=== PATIENT | male | born 1935 | race American Indian/Alaskan Native ===

== ENCOUNTER 2018-10-29 18:03 | Inpatient (IN) | payer MEDICARE, OTHER ==
[2018-10-29] MEDS ORDERED: Vancomycin 1gm in NS 250ml 1 GM/250 ML BAG IVPB STA (19:15)
[2018-10-29] MEDS ORDERED: Piperacillin/Tazobact 3.375 gm 100 ML IVPB STA (19:15)
[2018-10-29] MEDS ORDERED: Sodium Chloride 0.9% 1,000 ML IV STA (19:16)
[2018-10-29 19:35] LABS: BASO # 0.03 K/mm3 (0.0-2.0); BASO % 0.1 % (0.0-3.0); GRAN # 20.67 (1.4-6.5); GRAN % 88.7 % (50.0-68.0); HEMOGLOBIN 9.5 g/dL (14.0-18.0); LYMPH # 1.5 (1.2-3.4); LYMPH % 6.4 % (22.0-35.0); MEAN CELL VOLUME 82.6 fl (80.0-105.0); MEAN CORPUSCULAR HEMOGLOBIN 24.6 pg (25.0-35.0); MEAN CORPUSCULAR HGB CONC 29.8 g/dl (31.0-37.0); MEAN PLATELET VOLUME 9.7 fl (7.0-11.0); MONO # 1.1 (0.1-0.6); MONO % 4.8 % (1.0-6.0); RBC 3.86 10^6/uL (3.5-6.1); RED CELL DISTRIBUTION WIDTH 17.5 % (11.5-14.5); WHITE BLOOD COUNT 23.3 10^3/uL (4.5-11.0)
--- NOTE | 2018-10-29 19:39 | ED PDOC ---
Arrival/HPI - General Chief Complaint: Fever Time Seen by Provider: 10/29/18 19:08 Historian: Family (patient accompanied by daughter ), [facility] - History of Present Illness Narrative History of Present Illness (Text): 10/29/18 19:08 83 year old male, whose past medical history includes dementia, hypertension, and diabetes, who was sent to the emergency department from [facility] accompanied by daughter for reported fever. Patient is bed bound. Patient is DNR/DNI. No other complaints noted. HPI is limited due to patient's condition. PMD: Cameron Zamora Time/Duration: Prior to Arrival Symptom Onset: Sudden Symptom Course: Unchanged Activities at Onset: Light Past Medical History - Provider Review Nursing Documentation Reviewed: Yes - Cardiac Hx Hypertension: Yes - Pulmonary Hx Respiratory Disorders: No - Neurological Hx Dementia: Yes Hx Parkinson's Disease: Yes - HEENT Hx HEENT Disorder: Yes Hx Difficulty Chewing: Yes - Renal Hx Renal Disorder: No - Endocrine/Metabolic Hx Diabetes Mellitus Type 2: Yes - Hematological/Oncological Hx Anemia: Yes - Integumentary Hx Dermatological Disorder: Yes Other/Comment: skin breakdown sacrum - Musculoskeletal/Rheumatological Hx Musculoskeletal Disorders: Yes Hx Falls: No Hx Unsteady Gait: Yes Other/Comment: bed bound - Gastrointestinal Hx Gastrointestinal Disorders: No Other/Comment: PEG tube - Genitourinary/Gynecological Hx Genitourinary Disorders: Yes Hx Incontinence: Yes - Psychiatric Hx Psychophysiologic Disorder: No Hx Substance Use: No - Anesthesia Hx Anesthesia: Yes Hx Anesthesia Reactions: No Hx Malignant Hyperthermia: No Family/Social History - Physician Review Nursing Documentation Reviewed: Yes Family/Social History: No Known Family HX Smoking Status: Never Smoked Hx Alcohol Use: No Hx Substance Use: No Allergies/Home Meds Allergies/Adverse Reactions: Allergies No Known Allergies Allergy (Verified 07/28/18 19:08) Home Medications: Home Meds Medication Instructions Recorded Confirmed Acetylcysteine 20% 1 vial IH Q6H 10/29/18 10/29/18 RX: Ascorbic Acid [Vitamin C] 5 ml PEG DAILY 10/29/18 10/29/18 RX: Insulin Human Regular-LOW 0 units SC Q6H 10/29/18 10/29/18 [HumuLIN R LOW] RX: Pantoprazole [Protonix Inj] 40 mg PEG DAILY 10/29/18 10/29/18 traMADol [Ultram] 1 tab PEG Q12H PRN 10/29/18 10/29/18 Review of Systems - Physician Review All systems were reviewed & negative as marked: Yes (Limited due to patient's condition) - Review of Systems Constitutional: Fevers (pt sent to Emergency department from [facility] for reported fever). absent: Normal Physical Exam Vital Signs Reviewed: Yes Vital Signs Temp Pulse Resp BP Pulse Ox 10/29/18 18:24 100 F H 116 H 18 137/74 100 Temperature: Febrile Blood Pressure: Normal Pulse: Tachycardic Respiratory Rate: Normal Appearance: Positive for: Non-Toxic, Ill-Appearing (pt is chronically ill appearing), Cachectic Pain Distress: None Mental Status: Positive for: other (patient has history of dementia ) - Systems Exam Head: Present: Atraumatic, Normocephalic Pupils: Present: PERRL Extroacular Muscles: Present: EOMI Conjunctiva: Present: Normal Mouth: Present: Moist Mucous Membranes Neck: Present: Normal Range of Motion Respiratory/Chest: Present: Decreased Breath Sounds (mildly coarse breath sounds bilaterally ) Cardiovascular: Present: Regular Rate and Rhythm, Normal S1, S2. No: Murmurs Abdomen: Present: Feeding Tubes (PEG tube in place ) Back: Present: Normal Inspection Upper Extremity: Present: Normal Inspection. No: Cyanosis, Edema Lower Extremity: Present: Other (left sided sacral decubitis ulcer with purulent discharge ). No: Normal Inspection Skin: Present: Warm, Dry, Normal Color. No: Rashes Psychiatric: Present: Other (pt has history of dementia ) Medical Decision Making ED Course and Treatment: 10/29/18 19:08 Impression:83 year old male who was sent to the emergency department from [facility] accompanied by daughter for reported fever. Differential Diagnosis included but are not limited to: ro uti pna sepsis Plan: -- Labs -- EKG -- CMP -- Lipase -- Magnesium -- CBC (with differential) -- Partial Thromboplastin -- Prothrombin Time -- X-ray of chest -- IV fluids -- Vancomycin 1gm in 250ml IVPB -- Zosyn 3.375 in NS 100ml -- Blood culture -- Urine culture -- Urinalysis -- Reassess and disposition Prior Visits: Notes and results from previous visits were reviewed. Patient was last seen in the emergency department on 08/19/18 for fever. Progress Notes: 10/29/18 21:53 cxr with infiltare. daughter bedside requests dni dnr. antibiotics given. accepted dr cm. 10/29/18 23:49 10/29/18 23:50 lactate 2.2 code sepsis activaated does not need 30 cc/kg bolus and hemodynamics stable. - RAD Interpretation Radiology Orders: 10/29/18 19:16 CXR [CHEST PORTABLE] [RAD] Stat - Medication Orders Current Medication Orders: Vancomycin HCl (Vancomycin 1gm) 1 gm in 250 mls @ 167 mls/hr IVPB STAT STA; Protocol Stop: 10/29/18 20:44 Piperacillin Sod/Tazobactam Sod (Zosyn 3.375 In Ns 100ml) 100 mls @ 200 mls/hr IVPB STAT STA; Protocol Stop: 10/29/18 19:44 Sodium Chloride (Sodium Chloride 0.9%) 1,000 mls @ 999 mls/hr IV .Q1H1M STA Stop: 10/29/18 20:16 - Scribe Statement The provider has reviewed the documentation as recorded by the Scribsisi Kulkarni All medical record entries made by the Scribe were at my direction and personally dictated by me. I have reviewed the chart and agree that the record accurately reflects my personal performance of the history, physical exam, medical decision making, and the department course for this patient. I have also personally directed, reviewed, and agree with the discharge instructions and disposition. Disposition/Present on Arrival - Present on Arrival Any Indicators Present on Arrival: No History of DVT/PE: No History of Uncontrolled Diabetes: No Urinary Catheter: Yes History of Decub. Ulcer: No History Surgical Site Infection Following: None - Disposition Have Diagnosis and Disposition been Completed?: Yes Diagnosis: Pneumonia, Sepsis, Hypernatremia, Sacral decubitus ulcer Disposition: HOSPITALIZED Disposition Time: 21:00 Patient Problems: Current Active Problems Problem Status Onset Hypernatremia Acute Pneumonia Acute Sacral decubitus ulcer Acute Sepsis Acute Condition: FAIR
[2018-10-29 19:43] LABS: VENOUS BLOOD GAS BASE EXCESS 7.2 mmol/L (0.0-2.0); VENOUS BLOOD GAS PO2 116 mm/Hg (30-55); VENOUS BLOOD PH 7.42 (7.32-7.43)
[2018-10-29 19:45] LABS: INR 1.65; PARTIAL THROMBOPLASTIN TIME 35.5 Seconds (25.1-36.5)
[2018-10-29 19:58] LABS: ALB/GLOB RATIO 0.6 (1.1-1.8); ALBUMIN 2.9 g/dL (3.0-4.8); ALT/SGPT 21 U/L (7-56); AST/SGOT 54 U/L (17-59); B-TYPE NATRIURETIC PEPTIDE 682 pg/mL (0-450); BLOOD UREA NITROGEN 49 mg/dL (7-21); CALCIUM 9.8 mg/dL (8.4-10.5); GFR NON-AFRICAN AMERICAN > 60; LIPASE 67 U/L (23-300); TROPONIN I 0.04 ng/mL
[2018-10-29 20:27] LABS: URINE BILIRUBIN NEGATIVE (NEGATIVE); URINE BLOOD TRACE-LYSED (NEGATIVE); URINE GLUCOSE (UA) NEGATIVE (NEGATIVE); URINE LEUKOCYTE ESTERASE NEGATIVE Leu/uL (NEGATIVE); URINE PROTEIN NEGATIVE mg/dL (<30 mg/dL); URINE UROBILINOGEN 0.2 E.U./dL (<1 E.U./dL)
[2018-10-29 20:30] LABS: URINE APPEARANCE CLEAR (CLEAR); URINE COLOR YELLOW (YELLOW)
[2018-10-29 20:42] LABS: URINE BACTERIA NEG (NEG); URINE RBC 0 - 2 /hpf (0-2); URINE WBC NEGATIVE /hpf (0-6)
[2018-10-29] MEDS: Dextrose 5%/0.45% NS 1,000 ML IV SCH (22:14)
[2018-10-29] MEDS: MEROPENEM 500 MG in NS 500 MG/50 ML BAG IVPB SCH (22:15)
[2018-10-29] MEDS: Acetylcysteine 20% Inhal Soln (4ml) IH SCH (22:30)
[2018-10-29] MEDS: Levalbuterol 0.63 MG/3 ML Inhal Soln UD IH SCH (22:30)
[2018-10-29] MEDS: Carbidopa/Levodopa 25/250 PEG SCH (22:30)
[2018-10-29] MEDS: Insulin Reg-LOW-Coverage SC SCH (22:38)
[2018-10-29 23:23] LABS: VENOUS BLOOD GAS BASE EXCESS 5.8 mmol/L (0.0-2.0); VENOUS BLOOD GAS PO2 191 mm/Hg (30-55); VENOUS BLOOD PH 7.45 (7.32-7.43)
--- NOTE | 2018-10-29 23:39 | CP.PCM.HP ---
History of Present Illness - History of Present Illness History of Present Illness: Lillian Lrlilian, PGY1 Hospital H&P This is an 83 year old male with PMH of dementia, DM2, HTN, and parkinson's presenting to the ED from [facility] for fever of 102. Patient is nonverbal and currently lethargic during examination. Daughter is present who states she visited patient on previous evening and was at baseline at that time responding to commands. Patient was admitted to the hospital 3 months ago for severe sepsis 2/2 sacral decubitus ulcer. He is DNR/DNI. Daughter is emergency contact and her phone number is [phone]. 12 point ROS limited due to patient status. In ED, temp was 100F, HR 116 and BP of 137/74. WBC noted to be 23.3, lactate of 2.2, sodium of 155, and of BUN 49. CXR showed possible LLB infiltrate (f/u official read). Patient given zosyn, vancomycin, 1L NS and given tylenol. (Per chart review) PMD: Dr Quinteros PMH: Dementia, Parkinson's, DM2, HTN SH: resides at [facility], moved from [place] PSx: G-tube placed on prior hospital admission at [facility] (08/07/18) FH: Brother had DM2 Allergies: NKDA Present on Admission - Present on Admission Any Indicators Present on Admission: Yes Decubitus Ulcer Present: Yes Decubitus Ulcer Location: left sided sacral decubitis Decubitus Ulcer Stage: II Past Patient History - Past Medical History & Family History Past Medical History?: Yes - Past Social History Smoking Status: Unknown If Ever Smoked - CARDIAC Hx Hypertension: Yes - PULMONARY Hx Respiratory Disorders: No - NEUROLOGICAL Hx Dementia: Yes Hx Parkinson's Disease: Yes - HEENT Hx HEENT Problems: Yes Hx Difficulty Chewing: Yes - RENAL Hx Chronic Kidney Disease: No - ENDOCRINE/METABOLIC Hx Diabetes Mellitus Type 2: Yes - HEMATOLOGICAL/ONCOLOGICAL Hx Anemia: Yes - INTEGUMENTARY Hx Dermatological Problems: Yes Other/Comment: skin breakdown sacrum - MUSCULOSKELETAL/RHEUMATOLOGICAL Hx Musculoskeletal Disorders: Yes Hx Falls: No Hx Unsteady Gait: Yes Other/Comment: bed bound - GASTROINTESTINAL Hx Gastrointestinal Disorders: No Other/Comment: PEG tube - GENITOURINARY/GYNECOLOGICAL Hx Genitourinary Disorders: Yes Hx Incontinence: Yes - PSYCHIATRIC Hx Psychophysiologic Disorder: No Hx Substance Use: No - SURGICAL HISTORY Hx Surgeries: Yes - ANESTHESIA Hx Anesthesia: Yes Hx Anesthesia Reactions: No Hx Malignant Hyperthermia: No Meds Allergies/Adverse Reactions: Allergies Allergy/AdvReac Type Severity Reaction Status Date / Time No Known Allergies Allergy Verified 07/28/18 19:08 Physical Exam - Constitutional Appears: Cachectic Additional comments: lethargic - Head Exam Head Exam: ATRAUMATIC, NORMAL INSPECTION - Eye Exam Eye Exam: Normal appearance Pupil Exam: PERRL - ENT Exam ENT Exam: Mucous Membranes Dry - Respiratory Exam Respiratory Exam: Clear to Auscultation Bilateral. absent: Accessory Muscle Use, Rhonchi, Respiratory Distress - Cardiovascular Exam Cardiovascular Exam: REGULAR RHYTHM, +S1, +S2 - GI/Abdominal Exam GI & Abdominal Exam: Normal Bowel Sounds, Soft. absent: Firm, Guarding, Tenderness Additional comments: G tube present, in place, non bleeding, no puss appreciated - Extremities Exam Extremities exam: Positive for: normal inspection, pedal pulses present. Neg ative for: calf tenderness - Back Exam Additional comments: stage 2 left sided decubitus ulcer noted measuring approx 2cm x 2 cm, non bleeding no puss appreciated - Neurological Exam Additional comments: lethargic, non arousable - Skin Skin Exam: Dry, Normal Color, Warm Results - Vital Signs Recent Vital Signs: Last Vital Signs Temp 98.5 F 10/29/18 21:09 Pulse 112 H 10/29/18 20:36 Resp 18 10/29/18 20:36 BP 137/66 10/29/18 20:36 Pulse Ox 100 10/29/18 20:36 - Labs Result Diagrams: 10/29/18 19:03 10/29/18 19:03 Labs: Laboratory Results - last 24 hr 10/29/18 10/29/18 10/29/18 19:03 19:03 19:03 WBC 23.3 H RBC 3.86 Hgb 9.5 L Hct 31.9 L MCV 82.6 MCH 24.6 L MCHC 29.8 L RDW 17.5 H Plt Count 395 MPV 9.7 Gran % 88.7 H Lymph % (Auto) 6.4 L Glynn % (Auto) 4.8 Eos % (Auto) 0.0 L Baso % (Auto) 0.1 Gran # 20.67 H Lymph # (Auto) 1.5 Glynn # (Auto) 1.1 H Eos # (Auto) 0.0 Baso # (Auto) 0.03 PT 19.0 H INR 1.65 APTT 35.5 pO2 116 H VBG pH 7.42 VBG pCO2 51.0 VBG HCO3 33.1 H VBG Total CO2 34.7 H VBG O2 Sat (Calc) 99.8 H VBG Base Excess 7.2 H VBG Potassium 3.8 Sodium 158.0 H Chloride 120.0 H Glucose 223 H Lactate 2.2 H FiO2 21.0 Potassium Carbon Dioxide Anion Gap BUN Creatinine Est GFR ( Amer) Est GFR (Non-Af Amer) POC Glucose (mg/dL) Random Glucose Calcium Magnesium Total Bilirubin AST ALT Alkaline Phosphatase Lactate Dehydrogenase Total Creatine Kinase Troponin I NT-Pro-B Natriuret Pep Total Protein Albumin Globulin Albumin/Globulin Ratio Lipase Venous Blood Potassium 3.8 Urine Color Urine Appearance Urine pH Ur Specific [place] Urine Protein Urine Glucose (UA) Urine Ketones Urine Blood Urine Nitrate Urine Bilirubin Urine Urobilinogen Ur Leukocyte Esterase Urine RBC Urine WBC Ur Epithelial Cells Urine Bacteria 10/29/18 10/29/18 10/29/18 19:03 20:00 22:27 WBC RBC Hgb Hct MCV MCH MCHC RDW Plt Count MPV Gran % Lymph % (Auto) Glynn % (Auto) Eos % (Auto) Baso % (Auto) Gran # Lymph # (Auto) Glynn # (Auto) Eos # (Auto) Baso # (Auto) PT INR APTT pO2 VBG pH VBG pCO2 VBG HCO3 VBG Total CO2 VBG O2 Sat (Calc) VBG Base Excess VBG Potassium Sodium 155 H Chloride 120 H Glucose Lactate FiO2 Potassium 3.8 Carbon Dioxide 33 Anion Gap 7 L BUN 49 H Creatinine 1.1 Est GFR ( Amer) > 60 Est GFR (Non-Af Amer) > 60 POC Glucose (mg/dL) 165 H Random Glucose 216 H Calcium 9.8 Magnesium 2.6 H Total Bilirubin 0.7 AST 54 ALT 21 Alkaline Phosphatase 221 H D Lactate Dehydrogenase 462 Total Creatine Kinase 44 Troponin I 0.04 D NT-Pro-B Natriuret Pep 682 H Total Protein 7.5 Albumin 2.9 L Globulin 4.6 Albumin/Globulin Ratio 0.6 L Lipase 67 Venous Blood Potassium Urine Color Yellow Urine Appearance Clear Urine pH 6.0 Ur Specific [place] 1.010 Urine Protein Negative Urine Glucose (UA) Negative Urine Ketones Negative Urine Blood Trace-lysed H Urine Nitrate Negative Urine Bilirubin Negative Urine Urobilinogen 0.2 Ur Leukocyte Esterase Negative Urine RBC 0 - 2 Urine WBC Negative Ur Epithelial Cells None Urine Bacteria Neg Assessment & Plan - Assessment and Plan (Free Text) Assessment: This is an 83 year old male with PMH of dementia, DM2, HTN, and parkinson's presenting to the ED from [facility] for fever of 102. Plan: Sepsis -2/2 pneumonia vs left sided sacral decubitus -WBC count of 23.3, initial temp of 100 (now 98.5), HR of 116 (now 112), lactate of 2.2 (now 1.4) -CXR showed possible LLB infiltrate, f/u official read -continue xopenex -HOB 30 degrees, aspiration precautions, suction airway q2h -levoquin, merrem day 1 -blood, urine, sputum, sacral decubitus culture pending -procalc pending -ID on consult, Dr. López Left sacral decubitus ulcer -stage 2, approximately [id number] -wound culture pending -continue antibiotics -wound care daily Hx of HTN -trop x3 q4 -CPK x3 q4 -EKG AM -continue lopressor Hx of DM2 -continue insulin human regular q6 Hx of Parkinsons/dementia -continue sinemet, remeron PPX with protonix and lovenox/SCD G-tube feeding diet DNR/DNI Case discussed and approved by attending, Dr. Quinteros
[2018-10-30] MEDS: levoFLOXacin 750 mg in D5W 750 MG/150 ML BAG IVPB SCH ×2 (00:15→09:41)
--- NOTE | 2018-10-30 01:04 | PCM.SEPTIC ---
Sepsis Progress Note - Reassessment Type Date of Evaluation: 10/30/18 Time of Evaluation: 01:04 Reassessment Type: Non-invasive reassessment - Non Invasive Reassessment Were the most recent vital sign reviewed: Yes Vital Sign (Latest): Temp Pulse Resp BP Pulse Ox 98.5 F 110 H 18 143/70 100 10/29/18 21:09 10/30/18 00:48 10/30/18 00:48 10/30/18 00:48 10/30/18 00:48 Cardiovascular: Yes: Tachycardia Respiratory: No: Accessory Muscle Use, Wheezing, Respiratory Distress Capillary Refill: Normal (Less than 2 sec) Pulses: Normal Radial Skin: Normal Color, Warm
[2018-10-30] MEDS: Acetylcysteine 20% Inhal Soln (4ml) IH SCH ×3 (02:00→20:04)
[2018-10-30 02:07] LABS: TROPONIN I 0.03 ng/mL
[2018-10-30] MEDS: Levalbuterol 0.63 MG/3 ML Inhal Soln UD IH SCH ×3 (02:19→20:04)
[2018-10-30 04:14] LABS: BASO # 0.03 K/mm3 (0.0-2.0); BASO % 0.1 % (0.0-3.0); EOS # 0.1 (0.0-0.7); EOS % 0.4 % (1.5-5.0); GRAN # 19.31 (1.4-6.5); GRAN % 89.8 % (50.0-68.0); HEMOGLOBIN 9.2 g/dL (14.0-18.0); LYMPH # 1.3 (1.2-3.4); LYMPH % 5.9 % (22.0-35.0); MEAN CORPUSCULAR HEMOGLOBIN 24.8 pg (25.0-35.0); MEAN CORPUSCULAR HGB CONC 29.9 g/dl (31.0-37.0); MEAN PLATELET VOLUME 9.5 fl (7.0-11.0); MONO # 0.8 (0.1-0.6); MONO % 3.8 % (1.0-6.0); RBC 3.71 10^6/uL (3.5-6.1); RED CELL DISTRIBUTION WIDTH 17.3 % (11.5-14.5); WHITE BLOOD COUNT 21.5 10^3/uL (4.5-11.0)
[2018-10-30 04:27] LABS: ALB/GLOB RATIO 0.6 (1.1-1.8); ALBUMIN 2.6 g/dL (3.0-4.8); ALT/SGPT 17 U/L (7-56); AST/SGOT 52 U/L (17-59); BILIRUBIN,DIRECT 0.8 mg/dL (0.0-0.4); BLOOD UREA NITROGEN 38 mg/dL (7-21); GFR NON-AFRICAN AMERICAN > 60
[2018-10-30 04:33] LABS: TROPONIN I 0.03 ng/mL
[2018-10-30] MEDS: Insulin Reg-LOW-Coverage SC SCH ×4 (05:05→22:44)
[2018-10-30] MEDS: MEROPENEM 500 MG in NS 500 MG/50 ML BAG IVPB SCH (05:31)
[2018-10-30] MEDS: Carbidopa/Levodopa 25/250 PEG SCH ×5 (05:31→22:44)
[2018-10-30] MEDS: Dextrose 5%/0.45% NS 1,000 ML IV SCH ×3 (07:40→19:22)
--- NOTE | 2018-10-30 08:13 | HP ---
DATE OF EXAM: 10/29/2018 HISTORY OF PRESENT ILLNESS: The patient is an 83-year-old severely debilitated, elderly, male transferred from [facility] for a high-grade fever and tachycardia with heart rate of 120, fever of 101.8. The patient was transferred from [facility] for fever and tachycardia. The patient was given Tylenol by the assisted. The patient himself is a very poor historian because of advanced dementia and advanced Parkinson's. The patient is bedridden for months and the patient is mostly nonverbal. The patient's code status is now DNR/DNI. The patient's daughter, Cristal had made the patient DNR/DNI after discussing the case with the ER attending, Dr. Ashwin Cabrera. The patient's height is 5 feet 10 inches. ALLERGIES: NONE. BMI is 17.9. [facility] MEDICATIONS: Regular insulin low-dose sliding scale coverage, Mucomyst nebulizer 4 mL 20% every 6 hours, Protonix via PEG 40 mg daily, nitroglycerine paste 1 inch every 6 hours, Remeron 15 mg at bedtime, Ultram 50 mg every 12 hours p.r.n., Lopressor 50 mg via PEG twice a day, Xopenex nebulizer 0.63 every 6 hours, clonidine patch 0.1 mg weekly, carbidopa and levodopa 25 and 250 five times a day via PEG, aspirin 81 mg via PEG, ascorbic acid, vitamin C 5 mL via PEG daily, and Tylenol suppository 650 every 6 hours. PAST MEDICAL AND SURGICAL HISTORY: History of expressive aphasia, history of advanced parkinsonism, history of bedridden status, history of bacteremia, history of pneumonia, history of insulin-requiring diabetes mellitus. Past medical history is significant for Klebsiella pneumoniae Kathya, Pseudomonas aeruginosa, and Klebsiella pneumoniae sacral decubitus ulceration, history of Pseudomonas aeruginosa urinary tract infection, history of Pseudomonas aeruginosa Gram-negative bacteremia, history of yeast urinary tract infection, history of Klebsiella pneumoniae, Pseudomonas aeruginosa, Kathya albicans sacral decubitus ulceration, history of Gram-negative dahiana bacteremia and sepsis, history of Pseudomonas aeruginosa bacteremia and sepsis, history of funguria, history of Klebsiella pneumoniae and Kathya albicans sacral decubitus ulceration, history of severe deconditioning and gait dysfunction, history of gastrostomy tube placement with multiple dislodgement, history of procalcitonin anemia, history of feeding dysfunction with gastrostomy tube placement, but multiple dislodgement, history of severe advanced dementia and parkinsonism, history of functional quadriplegia with severe deconditioning, bedridden status and severe gait dysfunction, history of lactic acidosis, history of hypertension, history of acute kidney injury, history of anemia, history of increased anion gap metabolic acidosis, history of protein-malnutrition, history of hypoalbuminemia, history of hyper procalcitonin anemia, history of small bowel obstruction, history of aspiration pneumonia, history of Klebsiella pneumoniae, Pseudomonas aeruginosa sacral decubitus ulceration, history of advanced dementia, advanced Parkinson's disease, history of elevated erythrocyte sedimentation rate, history of hyper and hypokalemia, history of right upper extremity midline placement, history of Janeway gastrostomy tube placement, history of severe dementia, history of severe feeding dysfunction, history of sacral decubitus ulceration, history of hyper-procalcitonin anemia, history of elevated C-reactive protein of greater than 15, history of gait dysfunction, deconditioning, bedridden status and functional quadriplegia, 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, history of atelectasis and aspiration pneumonia, history of mural thickening of the rectosigmoid colon, history of sigmoid diverticulosis, history of right inguinal reducible hernia with multiple nonobstructed small bowel loop, history of resolving small bowel obstruction, history of mini laparotomy and Janeway gastrostomy tube placement, history of reducible right inguinal hernia containing small bowel loop without obstruction, history of ascending colon fecal stasis, history of reducible right inguinal hernia, history of thrombocytosis, history of proteinuria, glycosuria, pyuria, bacteriuria, history of fecal impaction, fecal retention and constipation, history of oropharyngeal dysphagia with risk for aspiration, history of hypomagnesemia, history of neurogenic bladder, history of urinary retention, history of xerostomia, history of protein-calorie malnutrition, history of sepsis, history of tachycardia, history of hypo and hyperkalemia, history of mechanical small bowel obstruction with dilated small bowel loop and fecal retention, impaction of stasis, history of cholelithiasis with negative HIDA scan, history of non-insulin requiring diabetes mellitus, history of exacerbation of encephalopathy, weakness and lethargy, history of deconditioning. The patient's past medical history is significant for severe gait dysfunction and cachexia, history of type 2 diabetes mellitus, history of dementia, history of questionable hypothyroidism, history of hearing deficit, history of urinary incontinence, history of feeding dysfunction, and history of malnutrition. The patient was brought to the [facility] Emergency Room in the code room. The patient was seen and examined by the ER physician in the code room. FAMILY HISTORY: Not available. SOCIAL HISTORY: Negative for smoking. Negative for alcohol. Negative for substance abuse. OCCUPATIONAL HISTORY: Disabled, bedridden elderly male. PHYSICAL EXAMINATION: VITAL SIGNS: T-max is 100 degrees down to 98.5 after the patient received Tylenol in the assisted, heart rate 116 to 112, blood pressure 137/66, 137/74, respirations 18, and O2 sat 100%. GENERAL: The patient is seen lying. The patient is nonverbal, but responsive to painful stimuli. HEENT: Head is normocephalic, atraumatic, edentulous. Pinkish pale conjunctivae. Dry oral mucosa. Crusting of the tongue noted. Positive facial muscle wasting. NECK: No jugular venous distention. Questionable soft carotid bruit. CHEST: Kyphosis. CARDIOVASCULAR: S1 and S2, tachycardic rhythm. LUNGS: Shows positive rhonchi bilaterally upper lung zhang. ABDOMEN: Soft. Positive bowel sounds. Positive gastrostomy tube noted. GENITALIA: Male. Positive Vega catheter. EXTREMITIES: Shows positive flexion and contractures of the upper and lower extremity. Positive rigidity noted. NEUROLOGIC: Extremely limited as the patient is nonverbal. Gait examination is not tested. LABORATORY DATA: Hematology shows WBC of 23.3, hemoglobin and hematocrit 9.5 and 32, platelets 395, and granulocytes 89% segs. PT/PTT 19. INR 1.6. PTT 35.5. VBG shows a pH of 7.42, pO2 of 116, pCO2 of 51, bicarb 33, saturation of 99.8, and lactate 2.2. Sodium 155, potassium 3.8, chloride 120, CO2 of 33, anion gap 7, BUN 49, creatinine 1.1, glucose 216, calcium 9.8, and magnesium 2.6. Alk phos 221. ProBNP is 682. Albumin 2.9. Urinalysis shows pH of 6, specific gravity 1.010, trace lysed blood, and negative bacteria. EKG shows sinus tachycardia. Chest x-ray shows positive pneumonia. TREATMENT IN THE EMERGENCY ROOM: The patient was treated in the emergency room by the ER physician, Dr. Cabrera. The patient was given IV fluid. The patient was given vancomycin 1 g. The patient was given Tylenol 650 suppository. The patient was given a liter of IV fluid. The patient was given vancomycin 1 g. The patient was given Zosyn 3.375 g in the ER. The patient was placed on telemetry. IMPRESSION: 1. Questionable and possible sepsis with high-grade fever and tachycardia versus systemic inflammatory response syndrome. 2. Healthcare-associated aspiration pneumonia. 3. Leukocytosis with granulocytosis. 4. Normocytic anemia. 5. Mild lactic acidosis. 6. Hyperchloremic hypernatremia. 7. Mild prerenal kidney injury. 8. Hyperglycemia. 9. Indeterminate troponin. 10. Mild hypoalbuminemia. 11. Microscopic hematuria. 12. Tachycardia. 13. History of severe advanced Parkinson disease and dementia. 14. Feeding dysfunction with gastrostomy tube placement. 15. Sacral decubitus ulceration. 16. Neurogenic bladder with indwelling Vega catheter. 17. Sacral decubitus ulceration. 18. History of Klebsiella pneumoniae Kathya sacral decubitus ulceration. 19. History of funguria. 20. History of Pseudomonas aeruginosa urinary tract infection. 21. History of Pseudomonas aeruginosa bacteremia and sepsis. 22. History of Klebsiella pneumoniae and Pseudomonas aeruginosa sacral decubitus ulceration. PLAN: At this time, the patient as mentioned was made DNR/DNI by the patient's daughter in the emergency room. All the DNR/DNI formalities and paperwork was completed by the ER physician, Dr. Ashwin Cabrera. The patient is present and is admitted to telemetry. The patient has been ordered lactic acid. We will repeat labs in the morning. Blood and urine cultures ordered. Consultation, Infectious Disease has been ordered,. Procalcitonin level has been ordered. The patient is resumed on Xopenex and Mucomyst nebulizer treatment every 6 hours and aspirin 81 mg daily. The patient was started on IV fluid D5 half normal at mL an hour, insulin sliding scale coverage every 6 hours, Lopressor 50 mg via PEG twice a day, and Lovenox 40 mg daily. The patient is also started on meropenem 500 mg IV every 8 hours, Protonix 40 mg IV daily, Remeron 15 mg at bedtime, and Sinemet 25/250 five times a day via PEG. The patient is on Tylenol 650 mg suppository every 6 hours p.r.n. The patient is on ascorbic acid 500 mg via PEG daily. The patient is on Xopenex nebulizer and Zofran 4 mg IV every 4 hours. Repeat chest . The patient has been ordered wound care. Head of the bed at 30 degrees. SCDs, RENO stockings, GI and DVT prophylaxis ordered.. The patient's daughter was explained about the details of the patient's overall guarded to poor prognosis and overall declining health, which she acknowledged and understand and all questions concerned answered, which she acknowledged and understand. At present, the patient is in the emergency room, code room. The patient is awaiting for a telemetry bed. The patient's further management will be dependent upon the patient's clinical condition, hemodynamic status and as per the patient's response to therapeutic intervention, as per the patient's diagnostic test results and as per recommendation by all the physician involved in the care of the patient. Dictated and electronically signed, not read Cameron Quinteros MD
--- NOTE | 2018-10-30 08:37 | CP.PCM.CON ---
<LukeEzdaryl - Last Filed: 10/30/18 13:54> History of Present Illness - History of Present Illness History of Present Illness: ID Consult Note - Dr. Michelle CC: Fever/Tachycardia from [place] HPI: 83 non-verbal and bedbound M with a PMHx of DM2, dementia, indwelling malik catheter, HTN, and parkinson's disease that presented to the [facility] ED from [facility] ([facility]) after pt was found with a fever of 102 and tachycardic,and was treated with Acetaminophen 650mg rectally at 4:15pm and sent to ED. Patient was admitted to the hospital 3 months ago for severe sepsis with presumed sacral decubitus ulcer etiology. Pt was seen and examined, pt is non- verbal, opens eyes spontaneously. ROS unobtainable. PMHx: Dementia, Parkinson's, DM2, HTN, sacral decubitus ulcer, indwelling malik PSHx: PEG SHx: No hx of tobacco use, ETOH abuse, or illicit abuse, [facility] FamHx: Noncontributory Meds: MAR Reviewed Allergies: NKDA Review of Systems - Review of Systems Systems not reviewed;Unavailable: Acuity of Condition Past Patient History - Past Medical History & Family History Past Medical History?: Yes - Past Social History Smoking Status: Unknown If Ever Smoked - CARDIAC Hx Hypertension: Yes - PULMONARY Hx Respiratory Disorders: No - NEUROLOGICAL Hx Dementia: Yes Hx Parkinson's Disease: Yes - HEENT Hx HEENT Problems: Yes Hx Difficulty Chewing: Yes - RENAL Hx Chronic Kidney Disease: No - ENDOCRINE/METABOLIC Hx Diabetes Mellitus Type 2: Yes - HEMATOLOGICAL/ONCOLOGICAL Hx Anemia: Yes - INTEGUMENTARY Hx Dermatological Problems: Yes Other/Comment: skin breakdown sacrum - MUSCULOSKELETAL/RHEUMATOLOGICAL Hx Musculoskeletal Disorders: Yes Hx Falls: No Hx Unsteady Gait: Yes Other/Comment: bed bound - GASTROINTESTINAL Hx Gastrointestinal Disorders: No Other/Comment: PEG tube - GENITOURINARY/GYNECOLOGICAL Hx Genitourinary Disorders: Yes Hx Incontinence: Yes - PSYCHIATRIC Hx Psychophysiologic Disorder: No Hx Substance Use: No - SURGICAL HISTORY Hx Surgeries: Yes - ANESTHESIA Hx Anesthesia: Yes Hx Anesthesia Reactions: No Hx Malignant Hyperthermia: No Meds Allergies/Adverse Reactions: Allergies Allergy/AdvReac Type Severity Reaction Status Date / Time No Known Allergies Allergy Verified 07/28/18 19:08 - Medications Medications: Current Medications Acetaminophen (Tylenol 650 Mg Supp) 650 mg RC Q6H PRN PRN Reason: Temp>/=99.5F, pain (mod) Last Admin: 10/30/18 05:31 Dose: 650 mg Acetaminophen (Tylenol 650 Mg Supp) 650 mg RC Q6H PRN PRN Reason: TEMP>=99.5F Acetylcysteine (Acetylcysteine 20%) 4 ml IH [id number] [facility] Last Admin: 10/30/18 02:00 Dose: 4 ml Ascorbic Acid (Vitamin C Liq) 500 mg PEG DAILY [facility] Aspirin (Aspirin Chewable) 81 mg PEG DAILY [facility] Carbidopa/Levodopa (Sinemet) 1 tab PEG 5XD [facility] Last Admin: 10/30/18 05:31 Dose: 1 tab Enoxaparin Sodium (Lovenox) 40 mg SC DAILY [facility]; Protocol Dextrose/Sodium Chloride (Dextrose 5%/0.45% Ns 1000 Ml) 1,000 mls @ 100 mls/hr IV .Q10H [facility] Stop: 10/31/18 03:29 Last Admin: 10/30/18 07:40 Dose: 100 mls/hr Meropenem/Sodium Chloride (Merrem Iv 500 Mg/Ns 50 Ml) 500 mg in 50 mls @ 100 mls/hr IVPB Q8 [facility]; Protocol Stop: 11/05/18 22:29 Last Admin: 10/30/18 05:31 Dose: 100 mls/hr Levofloxacin/Dextrose (Levaquin 750mg) 750 mg in 150 mls @ 100 mls/hr IVPB DAILY [facility]; Protocol Stop: 11/07/18 22:38 Last Admin: 10/30/18 00:15 Dose: 100 mls/hr Insulin Human Regular (Humulin R Low) 0 units SC Q6H [facility]; Protocol Last Admin: 10/30/18 05:05 Dose: Not Given Levalbuterol HCl (Xopenex) 0.63 mg IH [id number] [facility] Last Admin: 10/30/18 02:19 Dose: 0.63 mg Metoprolol Tartrate (Lopressor) 50 mg PEG BID [facility] Last Admin: 10/29/18 22:30 Dose: 50 mg Mirtazapine (Remeron) 15 mg PO HS [facility] Last Admin: 10/29/18 22:30 Dose: 15 mg Ondansetron HCl (Zofran Inj) 4 mg IVP Q4H PRN PRN Reason: Nausea/Vomiting Pantoprazole Sodium (Protonix Inj) 40 mg IVP DAILY [facility] Physical Exam - Constitutional Appears: Chronically Ill - Head Exam Head Exam: ATRAUMATIC, NORMAL INSPECTION, NORMOCEPHALIC - Eye Exam Eye Exam: EOMI, Normal appearance, PERRL Pupil Exam: NORMAL ACCOMODATION, PERRL - ENT Exam ENT Exam: Mucous Membranes Dry - Respiratory Exam Respiratory Exam: Decreased Breath Sounds - Cardiovascular Exam Cardiovascular Exam: Tachycardia, +S1, +S2 - GI/Abdominal Exam GI & Abdominal Exam: Normal Bowel Sounds, Soft. absent: Tenderness - Skin Additional comments: sacral decubitus ulcer dressed Results - Vital Signs Recent Vital Signs: Last Vital Signs Temp 99 F 10/30/18 06:31 Pulse 118 H 10/30/18 05:00 Resp 22 10/30/18 05:00 BP 134/69 10/30/18 04:01 Pulse Ox 95 10/30/18 05:00 - Labs Result Diagrams: 10/30/18 04:00 10/30/18 04:00 Labs: Laboratory Results - last 24 hr 10/29/18 10/29/18 10/29/18 19:03 19:03 19:03 WBC 23.3 H RBC 3.86 Hgb 9.5 L Hct 31.9 L MCV 82.6 MCH 24.6 L MCHC 29.8 L RDW 17.5 H Plt Count 395 MPV 9.7 Gran % 88.7 H Lymph % (Auto) 6.4 L Alexander % (Auto) 4.8 Eos % (Auto) 0.0 L Baso % (Auto) 0.1 Gran # 20.67 H Lymph # (Auto) 1.5 Alexander # (Auto) 1.1 H Eos # (Auto) 0.0 Baso # (Auto) 0.03 PT 19.0 H INR 1.65 APTT 35.5 pO2 116 H VBG pH 7.42 VBG pCO2 51.0 VBG HCO3 33.1 H VBG Total CO2 34.7 H VBG O2 Sat (Calc) 99.8 H VBG Base Excess 7.2 H VBG Potassium 3.8 Sodium 158.0 H Chloride 120.0 H Glucose 223 H Lactate 2.2 H FiO2 21.0 Potassium Carbon Dioxide Anion Gap BUN Creatinine Est GFR ( Amer) Est GFR (Non-Af Amer) POC Glucose (mg/dL) Random Glucose Lactic Acid Calcium Phosphorus Magnesium Total Bilirubin Direct Bilirubin AST ALT Alkaline Phosphatase Lactate Dehydrogenase Total Creatine Kinase Troponin I NT-Pro-B Natriuret Pep Total Protein Albumin Globulin Albumin/Globulin Ratio Lipase Venous Blood Potassium 3.8 Urine Color Urine Appearance Urine pH Ur Specific [place] Urine Protein Urine Glucose (UA) Urine Ketones Urine Blood Urine Nitrate Urine Bilirubin Urine Urobilinogen Ur Leukocyte Esterase Urine RBC Urine WBC Ur Epithelial Cells Urine Bacteria 10/29/18 10/29/18 10/29/18 19:03 20:00 22:27 WBC RBC Hgb Hct MCV MCH MCHC RDW Plt Count MPV Gran % Lymph % (Auto) Alexander % (Auto) Eos % (Auto) Baso % (Auto) Gran # Lymph # (Auto) Alexander # (Auto) Eos # (Auto) Baso # (Auto) PT INR APTT pO2 VBG pH VBG pCO2 VBG HCO3 VBG Total CO2 VBG O2 Sat (Calc) VBG Base Excess VBG Potassium Sodium 155 H Chloride 120 H Glucose Lactate FiO2 Potassium 3.8 Carbon Dioxide 33 Anion Gap 7 L BUN 49 H Creatinine 1.1 Est GFR ( Amer) > 60 Est GFR (Non-Af Amer) > 60 POC Glucose (mg/dL) 165 H Random Glucose 216 H Lactic Acid Calcium 9.8 Phosphorus Magnesium 2.6 H Total Bilirubin 0.7 Direct Bilirubin AST 54 ALT 21 Alkaline Phosphatase 221 H D Lactate Dehydrogenase 462 Total Creatine Kinase 44 Troponin I 0.04 D NT-Pro-B Natriuret Pep 682 H Total Protein 7.5 Albumin 2.9 L Globulin 4.6 Albumin/Globulin Ratio 0.6 L Lipase 67 Venous Blood Potassium Urine Color Yellow Urine Appearance Clear Urine pH 6.0 Ur Specific [place] 1.010 Urine Protein Negative Urine Glucose (UA) Negative Urine Ketones Negative Urine Blood Trace-lysed H Urine Nitrate Negative Urine Bilirubin Negative Urine Urobilinogen 0.2 Ur Leukocyte Esterase Negative Urine RBC 0 - 2 Urine WBC Negative Ur Epithelial Cells None Urine Bacteria Neg 10/29/18 10/29/18 10/30/18 23:20 23:20 01:25 WBC RBC Hgb Hct MCV MCH MCHC RDW Plt Count MPV Gran % Lymph % (Auto) Alexander % (Auto) Eos % (Auto) Baso % (Auto) Gran # Lymph # (Auto) Alexander # (Auto) Eos # (Auto) Baso # (Auto) PT INR APTT pO2 191 H VBG pH 7.45 H VBG pCO2 44.0 VBG HCO3 30.6 H VBG Total CO2 32.0 H VBG O2 Sat (Calc) 100.3 H VBG Base Excess 5.8 H VBG Potassium 3.7 Sodium 158.0 H Chloride 122.0 H Glucose 197 H Lactate 1.4 FiO2 21.0 Potassium Carbon Dioxide Anion Gap BUN Creatinine Est GFR ( Amer) Est GFR (Non-Af Amer) POC Glucose (mg/dL) Random Glucose Lactic Acid 1.3 Calcium Phosphorus Magnesium Total Bilirubin Direct Bilirubin AST ALT Alkaline Phosphatase Lactate Dehydrogenase Total Creatine Kinase 69 Troponin I 0.03 D NT-Pro-B Natriuret Pep Total Protein Albumin Globulin Albumin/Globulin Ratio Lipase Venous Blood Potassium 3.7 Urine Color Urine Appearance Urine pH Ur Specific [place] Urine Protein Urine Glucose (UA) Urine Ketones Urine Blood Urine Nitrate Urine Bilirubin Urine Urobilinogen Ur Leukocyte Esterase Urine RBC Urine WBC Ur Epithelial Cells Urine Bacteria 10/30/18 10/30/18 10/30/18 04:00 04:00 05:03 WBC 21.5 H RBC 3.71 Hgb 9.2 L Hct 30.8 L MCV 83.0 MCH 24.8 L MCHC 29.9 L RDW 17.3 H Plt Count 348 MPV 9.5 Gran % 89.8 H Lymph % (Auto) 5.9 L Alexander % (Auto) 3.8 Eos % (Auto) 0.4 L Baso % (Auto) 0.1 Gran # 19.31 H Lymph # (Auto) 1.3 Alexander # (Auto) 0.8 H Eos # (Auto) 0.1 Baso # (Auto) 0.03 PT INR APTT pO2 VBG pH VBG pCO2 VBG HCO3 VBG Total CO2 VBG O2 Sat (Calc) VBG Base Excess VBG Potassium Sodium 154 H Chloride 123 H Glucose Lactate FiO2 Potassium 3.7 Carbon Dioxide 30 Anion Gap 5 L BUN 38 H Creatinine 1.0 Est GFR ( Amer) > 60 Est GFR (Non-Af Amer) > 60 POC Glucose (mg/dL) 263 H Random Glucose 232 H Lactic Acid Calcium 9.0 Phosphorus 3.6 Magnesium 2.2 Total Bilirubin 1.0 Direct Bilirubin 0.8 H AST 52 ALT 17 Alkaline Phosphatase 187 H Lactate Dehydrogenase Total Creatine Kinase 73 Troponin I 0.03 NT-Pro-B Natriuret Pep Total Protein 6.8 Albumin 2.6 L Globulin 4.2 Albumin/Globulin Ratio 0.6 L Lipase Venous Blood Potassium Urine Color Urine Appearance Urine pH Ur Specific [place] Urine Protein Urine Glucose (UA) Urine Ketones Urine Blood Urine Nitrate Urine Bilirubin Urine Urobilinogen Ur Leukocyte Esterase Urine RBC Urine WBC Ur Epithelial Cells Urine Bacteria Assessment & Plan - Assessment and Plan (Free Text) Assessment: 83 non-verbal and bedbound M with a PMHx of DM2, dementia, indwelling malik cath eter, HTN, and parkinson's disease that presented to the [facility] ED from [facility] ([facility]) after pt was found with a fever of 102 and tachycardic,and was treated with Acetaminophen 650mg rectally at 4:15pm and sent to ED found to have right lower lobe infiltrates. Severe Sepsis HCAP DM2 Indwelling Malik HTN Parkinsons Dz Plan: CXR reviewed, found to have right lower lobe infiltrates, coming from [facility], significant leukocytosis, lactic acid of 2.2 Fu urine cx, Blood Cx, Sputum Cx, Wound Cx, Procal Vancomycin and Zosyn in ED, Continue with levaquin and merrem Monitor clinically Will Follow up <El Michelle - Last Filed: 10/30/18 18:02> Meds - Medications Medications: Current Medications Acetaminophen (Tylenol 650 Mg Supp) 650 mg RC Q6H PRN PRN Reason: Temp>/=99.5F, pain (mod) Last Admin: 10/30/18 05:31 Dose: 650 mg Acetaminophen (Tylenol 650 Mg Supp) 650 mg RC Q6H PRN PRN Reason: TEMP>=99.5F Last Admin: 10/30/18 11:50 Dose: 650 mg Acetylcysteine (Acetylcysteine 20%) 4 ml IH [id number] [facility] Last Admin: 10/30/18 09:43 Dose: 4 ml Ascorbic Acid (Vitamin C Liq) 500 mg PEG DAILY [facility] Last Admin: 10/30/18 10:15 Dose: Not Given Aspirin (Aspirin Chewable) 81 mg PEG DAILY [facility] Last Admin: 10/30/18 09:41 Dose: 81 mg Carbidopa/Levodopa (Sinemet) 1 tab PEG 5XD [facility] Last Admin: 10/30/18 15:44 Dose: 1 tab Enoxaparin Sodium (Lovenox) 40 mg SC DAILY [facility]; Protocol Last Admin: 10/30/18 09:39 Dose: 40 mg Levofloxacin/Dextrose (Levaquin 750mg) 750 mg in 150 mls @ 100 mls/hr IVPB DAILY [facility]; Protocol Stop: 11/07/18 22:38 Last Admin: 10/30/18 09:41 Dose: 100 mls/hr Dextrose/Sodium Chloride (Dextrose 5%/0.45% Ns 1000 Ml) 1,000 mls @ 150 mls/hr IV .Q6H40M [facility] Stop: 10/31/18 06:59 Last Admin: 10/30/18 11:51 Dose: 150 mls/hr Meropenem (Merrem Iv 1 Gm Premix) 1 gm in 50 mls @ 100 mls/hr IVPB Q8 [facility]; Protocol Last Admin: 10/30/18 15:42 Dose: 100 mls/hr Insulin Human Regular (Humulin R Low) 0 units SC Q6H [facility]; Protocol Last Admin: 10/30/18 16:48 Dose: 3 unit Levalbuterol HCl (Xopenex) 0.63 mg IH [id number] [facility] Last Admin: 10/30/18 09:39 Dose: 0.63 mg Metoprolol Tartrate (Lopressor) 50 mg PEG BID [facility] Last Admin: 10/30/18 10:14 Dose: 50 mg Ondansetron HCl (Zofran Inj) 4 mg IVP Q4H PRN PRN Reason: Nausea/Vomiting Oseltamivir Phosphate (Tamiflu Cap) 75 mg PO BID [facility]; Protocol Stop: 11/04/18 12:32 Pantoprazole Sodium (Protonix Inj) 40 mg IVP DAILY [facility] Last Admin: 10/30/18 10:52 Dose: 40 mg Results - Vital Signs Recent Vital Signs: Last Vital Signs Temp 100.9 F H 10/30/18 11:50 Pulse 106 H 10/30/18 15:03 Resp 18 10/30/18 15:03 BP 141/71 10/30/18 15:03 Pulse Ox 96 10/30/18 15:03 - Labs Result Diagrams: 10/30/18 04:00 10/30/18 04:00 Labs: Laboratory Results - last 24 hr 10/29/1818 10/29/18 19:03 19:03 19:03 WBC 23.3 H RBC 3.86 Hgb 9.5 L Hct 31.9 L MCV 82.6 MCH 24.6 L MCHC 29.8 L RDW 17.5 H Plt Count 395 MPV 9.7 Gran % 88.7 H Lymph % (Auto) 6.4 L Alexander % (Auto) 4.8 Eos % (Auto) 0.0 L Baso % (Auto) 0.1 Gran # 20.67 H Lymph # (Auto) 1.5 Alexander # (Auto) 1.1 H Eos # (Auto) 0.0 Baso # (Auto) 0.03 PT 19.0 H INR 1.65 APTT 35.5 pO2 116 H VBG pH 7.42 VBG pCO2 51.0 VBG HCO3 33.1 H VBG Total CO2 34.7 H VBG O2 Sat (Calc) 99.8 H VBG Base Excess 7.2 H VBG Potassium 3.8 Sodium 158.0 H Chloride 120.0 H Glucose 223 H Lactate 2.2 H FiO2 21.0 Potassium Carbon Dioxide Anion Gap BUN Creatinine Est GFR ( Amer) Est GFR (Non-Af Amer) POC Glucose (mg/dL) Random Glucose Lactic Acid Calcium Phosphorus Magnesium Total Bilirubin Direct Bilirubin AST ALT Alkaline Phosphatase Lactate Dehydrogenase Total Creatine Kinase Troponin I NT-Pro-B Natriuret Pep Total Protein Albumin Globulin Albumin/Globulin Ratio Lipase Procalcitonin Venous Blood Potassium 3.8 Urine Color Urine Appearance Urine pH Ur Specific [place] Urine Protein Urine Glucose (UA) Urine Ketones Urine Blood Urine Nitrate Urine Bilirubin Urine Urobilinogen Ur Leukocyte Esterase Urine RBC Urine WBC Ur Epithelial Cells Urine Bacteria 10/29/18 10/29/18 10/29/18 19:03 20:00 22:27 WBC RBC Hgb Hct MCV MCH MCHC RDW Plt Count MPV Gran % Lymph % (Auto) Alexander % (Auto) Eos % (Auto) Baso % (Auto) Gran # Lymph # (Auto) Alexander # (Auto) Eos # (Auto) Baso # (Auto) PT INR APTT pO2 VBG pH VBG pCO2 VBG HCO3 VBG Total CO2 VBG O2 Sat (Calc) VBG Base Excess VBG Potassium Sodium 155 H Chloride 120 H Glucose Lactate FiO2 Potassium 3.8 Carbon Dioxide 33 Anion Gap 7 L BUN 49 H Creatinine 1.1 Est GFR ( Amer) > 60 Est GFR (Non-Af Amer) > 60 POC Glucose (mg/dL) 165 H Random Glucose 216 H Lactic Acid Calcium 9.8 Phosphorus Magnesium 2.6 H Total Bilirubin 0.7 Direct Bilirubin AST 54 ALT 21 Alkaline Phosphatase 221 H D Lactate Dehydrogenase 462 Total Creatine Kinase 44 Troponin I 0.04 D NT-Pro-B Natriuret Pep 682 H Total Protein 7.5 Albumin 2.9 L Globulin 4.6 Albumin/Globulin Ratio 0.6 L Lipase 67 Procalcitonin Venous Blood Potassium Urine Color Yellow Urine Appearance Clear Urine pH 6.0 Ur Specific [place] 1.010 Urine Protein Negative Urine Glucose (UA) Negative Urine Ketones Negative Urine Blood Trace-lysed H Urine Nitrate Negative Urine Bilirubin Negative Urine Urobilinogen 0.2 Ur Leukocyte Esterase Negative Urine RBC 0 - 2 Urine WBC Negative Ur Epithelial Cells None Urine Bacteria Neg 10/29/18 10/29/18 10/29/18 23:04 23:20 23:20 WBC RBC Hgb Hct MCV MCH MCHC RDW Plt Count MPV Gran % Lymph % (Auto) Alexander % (Auto) Eos % (Auto) Baso % (Auto) Gran # Lymph # (Auto) Alexander # (Auto) Eos # (Auto) Baso # (Auto) PT INR APTT pO2 191 H VBG pH 7.45 H VBG pCO2 44.0 VBG HCO3 30.6 H VBG Total CO2 32.0 H VBG O2 Sat (Calc) 100.3 H VBG Base Excess 5.8 H VBG Potassium 3.7 Sodium 158.0 H Chloride 122.0 H Glucose 197 H Lactate 1.4 FiO2 21.0 Potassium Carbon Dioxide Anion Gap BUN Creatinine Est GFR ( Amer) Est GFR (Non-Af Amer) POC Glucose (mg/dL) Random Glucose Lactic Acid 1.3 Calcium Phosphorus Magnesium Total Bilirubin Direct Bilirubin AST ALT Alkaline Phosphatase Lactate Dehydrogenase Total Creatine Kinase Troponin I NT-Pro-B Natriuret Pep Total Protein Albumin Globulin Albumin/Globulin Ratio Lipase Procalcitonin 1.48 H Venous Blood Potassium 3.7 Urine Color Urine Appearance Urine pH Ur Specific [place] Urine Protein Urine Glucose (UA) Urine Ketones Urine Blood Urine Nitrate Urine Bilirubin Urine Urobilinogen Ur Leukocyte Esterase Urine RBC Urine WBC Ur Epithelial Cells Urine Bacteria 10/30/18 10/30/1810/30/18 01:25 04:00 04:00 WBC 21.5 H RBC 3.71 Hgb 9.2 L Hct 30.8 L MCV 83.0 MCH 24.8 L MCHC 29.9 L RDW 17.3 H Plt Count 348 MPV 9.5 Gran % 89.8 H Lymph % (Auto) 5.9 L Alexander % (Auto) 3.8 Eos % (Auto) 0.4 L Baso % (Auto) 0.1 Gran # 19.31 H Lymph # (Auto) 1.3 Alexander # (Auto) 0.8 H Eos # (Auto) 0.1 Baso # (Auto) 0.03 PT INR APTT pO2 VBG pH VBG pCO2 VBG HCO3 VBG Total CO2 VBG O2 Sat (Calc) VBG Base Excess VBG Potassium Sodium 154 H Chloride 123 H Glucose Lactate FiO2 Potassium 3.7 Carbon Dioxide 30 Anion Gap 5 L BUN 38 H Creatinine 1.0 Est GFR ( Amer) > 60 Est GFR (Non-Af Amer) > 60 POC Glucose (mg/dL) Random Glucose 232 H Lactic Acid Calcium 9.0 Phosphorus 3.6 Magnesium 2.2 Total Bilirubin 1.0 Direct Bilirubin 0.8 H AST 52 ALT 17 Alkaline Phosphatase 187 H Lactate Dehydrogenase Total Creatine Kinase 69 73 Troponin I 0.03 D 0.03 NT-Pro-B Natriuret Pep Total Protein 6.8 Albumin 2.6 L Globulin 4.2 Albumin/Globulin Ratio 0.6 L Lipase Procalcitonin Venous Blood Potassium Urine Color Urine Appearance Urine pH Ur Specific [place] Urine Protein Urine Glucose (UA) Urine Ketones Urine Blood Urine Nitrate Urine Bilirubin Urine Urobilinogen Ur Leukocyte Esterase Urine RBC Urine WBC Ur Epithelial Cells Urine Bacteria 10/30/18 10/30/18 10/30/18 05:03 08:00 09:40 WBC RBC Hgb Hct MCV MCH MCHC RDW Plt Count MPV Gran % Lymph % (Auto) Alexander % (Auto) Eos % (Auto) Baso % (Auto) Gran # Lymph # (Auto) Alexander # (Auto) Eos # (Auto) Baso # (Auto) PT INR APTT pO2 VBG pH VBG pCO2 VBG HCO3 VBG Total CO2 VBG O2 Sat (Calc) VBG Base Excess VBG Potassium Sodium Chloride Glucose Lactate FiO2 Potassium Carbon Dioxide Anion Gap BUN Creatinine Est GFR ( Amer) Est GFR (Non-Af Amer) POC Glucose (mg/dL) 263 H 186 H Random Glucose Lactic Acid Calcium Phosphorus Magnesium Total Bilirubin Direct Bilirubin AST ALT Alkaline Phosphatase Lactate Dehydrogenase Total Creatine Kinase 73 Troponin I 0.02 D NT-Pro-B Natriuret Pep Total Protein Albumin Globulin Albumin/Globulin Ratio Lipase Procalcitonin Venous Blood Potassium Urine Color Urine Appearance Urine pH Ur Specific [place] Urine Protein Urine Glucose (UA) Urine Ketones Urine Blood Urine Nitrate Urine Bilirubin Urine Urobilinogen Ur Leukocyte Esterase Urine RBC Urine WBC Ur Epithelial Cells Urine Bacteria 10/30/18 15:46 WBC RBC Hgb Hct MCV MCH MCHC RDW Plt Count MPV Gran % Lymph % (Auto) Alexander % (Auto) Eos % (Auto) Baso % (Auto) Gran # Lymph # (Auto) Alexander # (Auto) Eos # (Auto) Baso # (Auto) PT INR APTT pO2 VBG pH VBG pCO2 VBG HCO3 VBG Total CO2 VBG O2 Sat (Calc) VBG Base Excess VBG Potassium Sodium Chloride Glucose Lactate FiO2 Potassium Carbon Dioxide Anion Gap BUN Creatinine Est GFR ( Amer) Est GFR (Non-Af Amer) POC Glucose (mg/dL) 267 H Random Glucose Lactic Acid Calcium Phosphorus Magnesium Total Bilirubin Direct Bilirubin AST ALT Alkaline Phosphatase Lactate Dehydrogenase Total Creatine Kinase Troponin I NT-Pro-B Natriuret Pep Total Protein Albumin Globulin Albumin/Globulin Ratio Lipase Procalcitonin Venous Blood Potassium Urine Color Urine Appearance Urine pH Ur Specific [place] Urine Protein Urine Glucose (UA) Urine Ketones Urine Blood Urine Nitrate Urine Bilirubin Urine Urobilinogen Ur Leukocyte Esterase Urine RBC Urine WBC Ur Epithelial Cells Urine Bacteria Assessment & Plan - Assessment and Plan (Free Text) Assessment: Infectious diseases Attending Physician Attestation Patient seen and examined, discussed with medical laboratory assistant. I have reviewed the patient's history of present illness, past medical, social, personal and family histories, pertinent physical exam findings, course so far in this hospital admission, pertinent laboratory and imaging results. I agree with the above findings, assessment and plan. In addition, we have started IV Vancomycin, Merrem and Levaquin for this patient with severe sepsis due to right lower lobe HCAP. Follow up rapid Influenza test and will also start Tamiflu. Follow up blood, sputum cx, PCT. Will monitor clinically.
--- NOTE | 2018-10-30 08:49 | RAD ---
Date of service: 10/29/2018 HISTORY: sepsis COMPARISON: 07/28/2018 FINDINGS: LUNGS: There is an alveolar infiltrate in the right lower lobe consistent with pneumonia PLEURA: No significant pleural effusion identified, no pneumothorax apparent. CARDIOVASCULAR: No aortic atherosclerotic calcification present. Normal cardiac size. No pulmonary vascular congestion. OSSEOUS STRUCTURES: No significant abnormalities. VISUALIZED UPPER ABDOMEN: Normal. OTHER FINDINGS: None. IMPRESSION: Right lower lobe pneumonia
[2018-10-30 09:02] LABS: TROPONIN I 0.02 ng/mL
[2018-10-30] MEDS: Enoxaparin 40 mg Syringe SC SCH (09:39)
[2018-10-30] MEDS: Ascorbic Acid 500 mg/5 ml Liq(50 ml) PEG SCH (10:15)
[2018-10-30] MEDS ORDERED: Insulin Regular 1 UNITS/0.01 ML ML ONE (10:20)
--- NOTE | 2018-10-30 13:21 | PN ---
DATE: 10/30/2018 SUBJECTIVE: The patient is seen in ER bed 8 now. The patient is lying in the bed. The patient is comfortable, in no distress. Not verbal. Responsive to painful stimuli by grimacing of the face. Overnight nurse's notes were reviewed. The patient was found to be moaning and moving head. The patient still is tachycardic, heart rate 110 to 112. The patient's PEG tube was in place, Vega catheter in place. Sacrum, decubitus area had dressing noted. PHYSICAL EXAMINATION: VITAL SIGNS: T-max 100.7, down to 99. Telemetry shows sinus rhythm, sinus tachycardia 110, 112, 115. Blood pressure 134/69, 148/75, respiration 18 to 22, O2 sat 95% to 100%. HEENT: Head examination, normocephalic, atraumatic. Positive facial muscle wasting. Positive cachexia. Pinkish pale conjunctivae. Dry oral mucosa. NECK: No neck rigidity. Soft carotid bruit. Chest: Kyphosis. LUNGS: Examination shows positive rhonchi bilaterally, left more than the right. CARDIOVASCULAR: S1, S2, tachycardic rhythm. ABDOMEN: Soft. Positive bowel sounds, positive gastrostomy. GENITALIA: Male. Positive Vega catheter. EXTREMITIES: No pitting edema, no calf tenderness, no Homans sign. Positive contractures of the upper and lower extremity noted. MUSCULOSKELETAL: Examination shows a decreased muscle mass of 18. NEUROLOGIC: Neurological status is limited. Neurological exam is limited. VASCULAR: Palpable pulses. DIAGNOSTICS: 10/30/2018, WBC count is down to 21.5, hemoglobin/hematocrit 9.2/31, platelet 348. Granulocytes 90% segs. VBG, lactic acid 1.4 which was done last night. Sodium is down to 154 from 155, potassium 3.7, chloride 123, CO2 30, anion gap 5, BUN 38, creatinine 1, GFR greater than 60, glucose 232, lactic acid 1.3, calcium 9, phosphorus 3.6, magnesium 2.2, alk phos 187. Troponin all three sets 0.03, albumin 2.6. IMPRESSION AND PLAN: 1. Fever. 2. Tachycardia. 3. Leukocytosis with granulocytosis. 4. Questionable systemic inflammatory response syndrome versus sepsis. 5. Possible left lower lobe aspiration pneumonia. 6. Normocytic anemia. 7. Transient lactic acidosis. 8. Hyperchloremic hypernatremia. 9. Prerenal kidney injury. 10. Hyperglycemia. 11. Mild hypoalbuminemia. 12. Microscopic hematuria. 13. Sacral decubitus ulceration. 14. Feeding dysfunction with gastrostomy tube placement. 15. Severe advanced dementia and Parkinson's disease. 16. Functional quadriplegia with severe deconditioning, gait dysfunction, and bedridden status. 17. Severe deconditioning. 18. Severe gait dysfunction. 19. Voiding dysfunction with neurogenic bladder and urinary retention and indwelling Vega catheter. 20. Hyperglycemia. 21. Questionable healthcare-associated aspiration pneumonia. 22. History of Klebsiella pneumoniae, Kathya albicans and Klebsiella pneumoniae and Pseudomonas aeruginosa sacral decubitus ulceration. 23. Funguria. 24. Pseudomonas aeruginosa, bacteremia, sepsis, and urinary tract infection. Plan at this time, the patient has been ordered repeat labs for the morning. Blood and urine cultures, sacral decubitus culture and sputum cultures are ordered. Consultation with Infectious Diseases. Procalcitonin level pending. The patient has been ordered Xopenex nebulizer and Mucomyst nebulizer every 6 hours, aspirin 81 mg daily. The patient is given 500 mL of D5W. The patient will be continued on D5 half normal saline at 150 mL an hour and sliding scale insulin coverage every 6 hours. The patient is started on Levaquin 750 mg IV daily, Lopressor 50 via PEG twice a day, Lovenox 40 mg subcu daily, meropenem 500 mg IV every 8 hours, Protonix 40 mg IV daily, Remeron 15 mg at bedtime which will be considered to be held as the patient is lethargic. The patient is on Sinemet 250/25 one tablet three times a day, Tylenol suppository every 6 hours p.r.n. ascorbic acid 500 daily, Zofran 4 mg IV every 4 hours p.r.n. Repeat EKG ordered. SCDs, RENO stockings, suction airway every 2 hours. Reposition in the bed every 2 hours while awake. AT present, the patient's further management will be dependent upon the patient's clinical condition, hemodynamic status, and as per the patient response to therapeutic intervention, as per the patient's diagnostic test results, and as per recommendation by all the physicians involved in the care of the patient. The patient's repeat lab work has been ordered for the morning. The patient's overall prognosis is guarded to poor, the patient's family is aware. Code status, DNR/DNI. Dictated and electronically signed, not read. Cameron Quinteros MD
[2018-10-30] MEDS: Meropenem IV 1 gm in NS 1 GM/50 ML BAG IVPB SCH ×2 (15:42→22:43)
[2018-10-30 18:51] VITALS: BMI 17.9
[2018-10-30] MEDS ORDERED: Pneumococcal 23-Valent Vaccine IM ONE (18:51)
[2018-10-30] MEDS ORDERED: Influenza Vaccine 60 mcg/0.5 mL SYR (4YR UP) IM ONE (18:51)
[2018-10-30] MEDS: Vancomycin 1gm in NS 250ml 1 GM/250 ML BAG IVPB SCH (22:43)
[2018-10-31] MEDS: Acetylcysteine 20% Inhal Soln (4ml) IH SCH ×4 (01:31→20:03)
[2018-10-31] MEDS: Levalbuterol 0.63 MG/3 ML Inhal Soln UD IH SCH ×4 (01:31→20:03)
[2018-10-31] MEDS: Dextrose 5%/0.45% NS 1,000 ML IV SCH (03:00)
[2018-10-31] MEDS: Insulin Reg-LOW-Coverage SC SCH ×4 (03:43→22:06)
[2018-10-31] MEDS: Meropenem IV 1 gm in NS 1 GM/50 ML BAG IVPB SCH ×3 (05:08→22:28)
[2018-10-31] MEDS: Carbidopa/Levodopa 25/250 PEG SCH ×5 (05:09→22:30)
[2018-10-31] MEDS: Vancomycin 1gm in NS 250ml 1 GM/250 ML BAG IVPB SCH ×2 (05:15→18:27)
[2018-10-31 08:05] LABS: BASO # 0.02 K/mm3 (0.0-2.0); BASO % 0.1 % (0.0-3.0); EOS # 0.1 (0.0-0.7); EOS % 0.7 % (1.5-5.0); GRAN # 17.54 (1.4-6.5); GRAN % 87.5 % (50.0-68.0); HEMOGLOBIN 8.7 g/dL (14.0-18.0); LYMPH # 1.7 (1.2-3.4); LYMPH % 8.4 % (22.0-35.0); MEAN CELL VOLUME 82.5 fl (80.0-105.0); MEAN CORPUSCULAR HEMOGLOBIN 24.2 pg (25.0-35.0); MEAN CORPUSCULAR HGB CONC 29.3 g/dl (31.0-37.0); MEAN PLATELET VOLUME 10.1 fl (7.0-11.0); MONO # 0.7 (0.1-0.6); MONO % 3.3 % (1.0-6.0); RBC 3.6 10^6/uL (3.5-6.1); RED CELL DISTRIBUTION WIDTH 17.1 % (11.5-14.5); WHITE BLOOD COUNT 20.1 10^3/uL (4.5-11.0)
[2018-10-31 08:37] LABS: ALB/GLOB RATIO 0.6 (1.1-1.8); ALBUMIN 2.5 g/dL (3.0-4.8); ALT/SGPT 48 U/L (7-56); AST/SGOT 90 U/L (17-59); BILIRUBIN,DIRECT 0.7 mg/dL (0.0-0.4); BLOOD UREA NITROGEN 30 mg/dL (7-21); CALCIUM 8.8 mg/dL (8.4-10.5); GFR NON-AFRICAN AMERICAN > 60
--- NOTE | 2018-10-31 08:45 | CP.PCM.PN ---
Subjective - Date & Time of Evaluation Date of Evaluation: 10/31/18 Time of Evaluation: 08:15 - Subjective Subjective: (covering for Dr. Quinteros) Patient is seen this morning. He is lying in bed moaning. He is unable to answer questions. Objective - Vital Signs/Intake and Output Vital Signs (last 24 hours): Temp Pulse Resp BP Pulse Ox 99.5 F 108 H 20 135/74 94 L 10/31/18 06:00 10/31/18 06:00 10/31/18 06:00 10/31/18 06:00 10/31/18 06:00 Intake and Output: 10/31/18 10/31/18 06:59 18:59 Intake Total 2400 720 Output Total 600 Balance 1800 720 - Medications Medications: Current Medications Acetaminophen (Tylenol 650 Mg Supp) 650 mg RC Q6H PRN PRN Reason: Temp>/=99.5F, pain (mod) Last Admin: 10/30/18 19:24 Dose: 650 mg Acetaminophen (Tylenol 650 Mg Supp) 650 mg RC Q6H PRN PRN Reason: TEMP>=99.5F Last Admin: 10/30/18 11:50 Dose: 650 mg Acetylcysteine (Acetylcysteine 20%) 4 ml IH [id number] [facility] Last Admin: 10/31/18 07:21 Dose: 4 ml Ascorbic Acid (Vitamin C Liq) 500 mg PEG DAILY [facility] Last Admin: 10/30/18 10:15 Dose: Not Given Aspirin (Aspirin Chewable) 81 mg PEG DAILY [facility] Last Admin: 10/30/18 09:41 Dose: 81 mg Carbidopa/Levodopa (Sinemet) 1 tab PEG 5XD [facility] Last Admin: 10/31/18 05:09 Dose: 1 tab Enoxaparin Sodium (Lovenox) 40 mg SC DAILY [facility]; Protocol Last Admin: 10/30/18 09:39 Dose: 40 mg Levofloxacin/Dextrose (Levaquin 750mg) 750 mg in 150 mls @ 100 mls/hr IVPB DAILY [facility]; Protocol Stop: 11/07/18 22:38 Last Admin: 10/30/18 09:41 Dose: 100 mls/hr Meropenem (Merrem Iv 1 Gm Premix) 1 gm in 50 mls @ 100 mls/hr IVPB Q8 [facility]; Protocol Last Admin: 10/31/18 05:08 Dose: 100 mls/hr Vancomycin HCl (Vancomycin 1gm) 1 gm in 250 mls @ 167 mls/hr IVPB Q12H [facility]; Protocol Last Admin: 10/31/18 05:15 Dose: 167 mls/hr Insulin Human Regular (Humulin R Low) 0 units SC Q6H [facility]; Protocol Last Admin: 10/31/18 03:43 Dose: Not Given Levalbuterol HCl (Xopenex) 0.63 mg IH [id number] [facility] Last Admin: 10/31/18 07:21 Dose: 0.63 mg Metoprolol Tartrate (Lopressor) 50 mg PEG BID [facility] Last Admin: 10/30/18 19:20 Dose: 50 mg Ondansetron HCl (Zofran Inj) 4 mg IVP Q4H PRN PRN Reason: Nausea/Vomiting Oseltamivir Phosphate (Tamiflu Cap) 75 mg PO BID [facility]; Protocol Stop: 11/04/18 12:32 Last Admin: 10/30/18 19:19 Dose: 75 mg Pantoprazole Sodium (Protonix Inj) 40 mg IVP DAILY [facility] Last Admin: 10/30/18 10:52 Dose: 40 mg - Labs Labs: 10/31/18 07:00 10/30/18 04:00 PT 19.0 SECONDS (9.4-12.5) H 10/29/18 19:03 INR 1.65 10/29/18 19:03 APTT 35.5 Seconds (25.1-36.5) 10/29/18 19:03 - Constitutional Appears: No Acute Distress - Head Exam Head Exam: ATRAUMATIC, NORMOCEPHALIC - Respiratory Exam Respiratory Exam: Decreased Breath Sounds - Cardiovascular Exam Cardiovascular Exam: REGULAR RHYTHM, +S1, +S2 - GI/Abdominal Exam GI & Abdominal Exam: Soft Additional comments: +PEG - Neurological Exam Neurological Exam: Altered, Awake Assessment and Plan - Assessment and Plan (Free Text) Assessment: Severe Sepsis secondary to aspiration pneumonia - Patient is on IV Vancomycin, Meropenem and Levaquin as per infectious disease - white blood cell count is slowly trending down - continue mucomyst Advanced dementia/Parkinson's disease - continue Sinemet Sacral wound - continue wound care Hypernatremia - - patient is receiving water through PEG tube 250ml q8 hours; will increase to [id number] - repeat sodium level in AM
[2018-10-31] MEDS: Enoxaparin 40 mg Syringe SC SCH (09:52)
[2018-10-31] MEDS: Ascorbic Acid 500 mg/5 ml Liq(50 ml) PEG SCH (10:29)
[2018-10-31] MEDS: levoFLOXacin 750 mg in D5W 750 MG/150 ML BAG IVPB SCH (10:30)
[2018-10-31] MEDS ORDERED: Acetaminophen 160 mg/5 ml UD PO PRN (11:41)
[2018-10-31] MEDS ORDERED: Acetaminophen 160 mg/5 ml UD PO SCH (12:00)
[2018-10-31] MEDS: Acetaminophen 650mg/20.3ml solution UD PO PRN (12:07)
[2018-11-01] MEDS: Acetylcysteine 20% Inhal Soln (4ml) IH SCH ×3 (01:59→19:37)
[2018-11-01] MEDS: Levalbuterol 0.63 MG/3 ML Inhal Soln UD IH SCH ×4 (02:00→19:37)
[2018-11-01] MEDS: Insulin Reg-LOW-Coverage SC SCH ×4 (04:08→22:41)
--- NOTE | 2018-11-01 05:26 | PN ---
DATE: 10/31/2018 SUBJECTIVE: The patient is in bed, in no acute distress. The patient was seen early this morning in room 266, bed 1. PHYSICAL EXAMINATION: VITAL SIGNS: Temperature is 99, blood pressure is 150/90, respiratory rate of 18. HEENT: Unremarkable. NECK: Supple. LUNGS: Have decreased breath sounds. HEART: Normal S1, S2. ABDOMEN: Soft. LABORATORY EXAMINATION: Reveals a white count of 20,000. Chemistries are noted. BUN of 30, creatinine of 0.9, and urinalysis is noted. Microbiology reveals gram-negative rods, and blood cultures are no growth. Urine cultures are noted, and review of orders reveals the patient to be on Levaquin, meropenem, and vancomycin. The patient's nasal MRSA screen is positive, and the blood cultures are negative. ASSESSMENT AND PLAN: An 83-year-old male with dementia, diabetes, chronic Vega catheter, percutaneous endoscopic gastrostomy tube, was nonverbal, bed bound, and with severe sepsis, healthcare-associated pneumonia, on vancomycin, meropenem, and Levaquin. We will continue the present course and follow closely. Overall prognosis is poor. Noé López MD
[2018-11-01] MEDS: Carbidopa/Levodopa 25/250 PEG SCH ×5 (05:59→22:46)
[2018-11-01] MEDS: Meropenem IV 1 gm in NS 1 GM/50 ML BAG IVPB SCH ×3 (05:59→22:49)
[2018-11-01] MEDS: Vancomycin 1gm in NS 250ml 1 GM/250 ML BAG IVPB SCH ×2 (06:00→18:27)
[2018-11-01 08:37] LABS: BASO # 0.01 K/mm3 (0.0-2.0); BASO % 0.1 % (0.0-3.0); EOS # 0.2 (0.0-0.7); EOS % 1.4 % (1.5-5.0); GRAN # 15.29 (1.4-6.5); GRAN % 86.1 % (50.0-68.0); HEMOGLOBIN 8.5 g/dL (14.0-18.0); LYMPH # 1.7 (1.2-3.4); LYMPH % 9.7 % (22.0-35.0); MEAN CELL VOLUME 80.6 fl (80.0-105.0); MEAN CORPUSCULAR HEMOGLOBIN 24.3 pg (25.0-35.0); MEAN CORPUSCULAR HGB CONC 30.1 g/dl (31.0-37.0); MEAN PLATELET VOLUME 9.8 fl (7.0-11.0); MONO # 0.5 (0.1-0.6); MONO % 2.7 % (1.0-6.0); RBC 3.5 10^6/uL (3.5-6.1); RED CELL DISTRIBUTION WIDTH 17.2 % (11.5-14.5); WHITE BLOOD COUNT 17.7 10^3/uL (4.5-11.0)
--- NOTE | 2018-11-01 08:38 | CP.PCM.PN ---
Subjective - Date & Time of Evaluation Date of Evaluation: 11/01/18 Time of Evaluation: 08:15 - Subjective Subjective: (covering for Dr. Quinteros) Patient is seen this morning. He is not moaning. He appears to be resting comfortably. He still does not answer questions. Objective - Vital Signs/Intake and Output Vital Signs (last 24 hours): Temp Pulse Resp BP Pulse Ox 98 F 108 H 19 140/65 97 11/01/18 06:00 11/01/18 06:00 11/01/18 06:00 11/01/18 06:00 11/01/18 06:00 Intake and Output: 11/01/18 11/01/18 06:59 18:59 Intake Total 0 Output Total 500 Balance -500 - Medications Medications: Current Medications Acetaminophen (Tylenol 650 Mg Supp) 650 mg RC Q6H PRN PRN Reason: Temp>/=99.5F, pain (mod) Last Admin: 10/30/18 19:24 Dose: 650 mg Acetaminophen (Tylenol 650 Mg Supp) 650 mg RC Q6H PRN PRN Reason: TEMP>=99.5F Last Admin: 10/30/18 11:50 Dose: 650 mg Acetaminophen (Tylenol 650mg/20.3ml Solution Ud) 650 mg PO Q6H PRN PRN Reason: fever>100.4 Last Admin: 10/31/18 12:07 Dose: 650 mg Acetylcysteine (Acetylcysteine 20%) 4 ml IH [id number] [facility] Last Admin: 11/01/18 07:10 Dose: 4 ml Ascorbic Acid (Vitamin C Liq) 500 mg PEG DAILY [facility] Last Admin: 10/31/18 10:29 Dose: Not Given Aspirin (Aspirin Chewable) 81 mg PEG DAILY [facility] Last Admin: 10/31/18 09:52 Dose: 81 mg Carbidopa/Levodopa (Sinemet) 1 tab PEG 5XD [facility] Last Admin: 11/01/18 05:59 Dose: 1 tab Enoxaparin Sodium (Lovenox) 40 mg SC DAILY [facility]; Protocol Last Admin: 10/31/18 09:52 Dose: 40 mg Levofloxacin/Dextrose (Levaquin 750mg) 750 mg in 150 mls @ 100 mls/hr IVPB DAILY [facility]; Protocol Stop: 11/07/18 22:38 Last Admin: 10/31/18 10:30 Dose: 100 mls/hr Meropenem (Merrem Iv 1 Gm Premix) 1 gm in 50 mls @ 100 mls/hr IVPB Q8 [facility]; Protocol Last Admin: 11/01/18 05:59 Dose: 100 mls/hr Vancomycin HCl (Vancomycin 1gm) 1 gm in 250 mls @ 167 mls/hr IVPB Q12H [facility]; Protocol Last Admin: 11/01/18 06:00 Dose: 167 mls/hr Insulin Human Regular (Humulin R Low) 0 units SC Q6H [facility]; Protocol Last Admin: 11/01/18 04:08 Dose: Not Given Levalbuterol HCl (Xopenex) 0.63 mg IH [id number] [facility] Last Admin: 11/01/18 07:10 Dose: 0.63 mg Metoprolol Tartrate (Lopressor) 50 mg PEG BID [facility] Last Admin: 10/31/18 17:56 Dose: 50 mg Ondansetron HCl (Zofran Inj) 4 mg IVP Q4H PRN PRN Reason: Nausea/Vomiting Oseltamivir Phosphate (Tamiflu Cap) 75 mg PO BID [facility]; Protocol Stop: 11/04/18 12:32 Last Admin: 10/31/18 17:56 Dose: 75 mg Pantoprazole Sodium (Protonix Inj) 40 mg IVP DAILY [facility] Last Admin: 10/31/18 09:53 Dose: 40 mg - Labs Labs: 10/31/18 07:00 10/31/18 07:00 PT 19.0 SECONDS (9.4-12.5) H 10/29/18 19:03 INR 1.65 10/29/18 19:03 APTT 35.5 Seconds (25.1-36.5) 10/29/18 19:03 - Constitutional Appears: No Acute Distress - Head Exam Head Exam: ATRAUMATIC, NORMOCEPHALIC - Respiratory Exam Respiratory Exam: Decreased Breath Sounds, Rhonchi - Cardiovascular Exam Cardiovascular Exam: REGULAR RHYTHM, +S1, +S2 - GI/Abdominal Exam GI & Abdominal Exam: Soft, Normal Bowel Sounds Additional comments: +PEG tube Assessment and Plan - Assessment and Plan (Free Text) Assessment: Severe sepsis with pneumonia, sacral decubitus ulcer - Patient is currently on IV Levaquin, Vancomycin and Meropenem - wound culture is growing gram negative rods, identification and sensitivity are pending - continue mucomyst - WBC count slowly trending downward- awaiting today's labs Hypernatremia - continue increased free water through the PEG tube - awaiting today's sodium level Oral feeding dysfunction - continue feedings via PEG tube Advanced dementia and Parkinson's disease - continue Sinemet
[2018-11-01 09:11] LABS: ALB/GLOB RATIO 0.6 (1.1-1.8); ALBUMIN 2.4 g/dL (3.0-4.8); ALT/SGPT 35 U/L (7-56); AST/SGOT 76 U/L (17-59); BILIRUBIN,DIRECT 0.5 mg/dL (0.0-0.4); BLOOD UREA NITROGEN 29 mg/dL (7-21); CALCIUM 8.8 mg/dL (8.4-10.5); GFR NON-AFRICAN AMERICAN > 60
[2018-11-01] MEDS: Dextrose 5%/0.45% NS 1,000 ML IV SCH (11:43)
[2018-11-01] MEDS: Enoxaparin 40 mg Syringe SC SCH (11:44)
[2018-11-01] MEDS: levoFLOXacin 750 mg in D5W 750 MG/150 ML BAG IVPB SCH (11:46)
[2018-11-01] MEDS: Mupirocin 2% Ointment 15 GM TUBE NS SCH ×2 (12:37→18:50)
[2018-11-01] MEDS: Acetaminophen 650mg/20.3ml solution UD PO PRN ×2 (12:38→18:15)
[2018-11-01] MEDS: Ascorbic Acid 500 mg/5 ml Liq(50 ml) PEG SCH (13:27)
--- NOTE | 2018-11-01 14:43 | PN ---
DATE: 11/01/2018 SUBJECTIVE: The patient is in bed in no acute distress, nontoxic. PHYSICAL EXAMINATION: VITAL SIGNS: Temperature is 98, blood pressure is 140/60, respiratory rate of 18. HEENT: Unremarkable. NECK: Supple. LUNGS: Have decreased breath sounds. HEART: Normal S1 and S2. ABDOMEN: Soft, nontender. LABORATORY DATA: Reveals a white count of 17,700, hemoglobin of 88. BUN of 29, creatinine of 0.8 and procalcitonin is noted and urinalysis is noted. Microbiology reveals sacral cultures of gram-negative dahiana, blood cultures show no growth and urine cultures show mixed low count organisms of 10,000 to 50,000. Naris MRSA screen is positive. MEDICATIONS: Review of orders reveals the patient to be on IV Levaquin, meropenem, Tamiflu, and vancomycin. ASSESSMENT AND PLAN: This is an 83-year-old male who has dementia, diabetes, chronic Vega catheter, PEG tube placement. He is bed-bound with severe sepsis with healthcare-associated pneumonia, gram-negative dahiana from the sacral culture and MRSA screen is positive with a chest x-ray which shows a right lower lobe pneumonia. This is day #3 of vancomycin, meropenem, and Levaquin and day #3 of Tamiflu since the blood cultures are negative at 24 hours and day #3 of antibiotics. We will order urine for Legionella antigen. Would complete 4 to 7 days of antibiotics, today is day #3. If the urine Legionella antigen is negative, we may switch from Levaquin to p.o. doxycycline and discontinue the vancomycin. Noé López MD
[2018-11-01] MEDS ORDERED: Insulin Human NPH 1 UNITS/0.01 ML SC SCH (18:00)
[2018-11-01] MEDS ORDERED: Acetaminophen 650mg/20.3ml solution UD PEG PRN ×2 (20:00)
[2018-11-02] MEDS: Levalbuterol 0.63 MG/3 ML Inhal Soln UD IH SCH ×4 (02:10→20:40)
[2018-11-02] MEDS: Acetylcysteine 20% Inhal Soln (4ml) IH SCH ×4 (02:10→20:40)
[2018-11-02] MEDS: Insulin Reg-LOW-Coverage SC SCH ×4 (04:03→22:22)
[2018-11-02] MEDS: Carbidopa/Levodopa 25/250 PEG SCH ×5 (05:40→22:24)
[2018-11-02] MEDS: Meropenem IV 1 gm in NS 1 GM/50 ML BAG IVPB SCH ×3 (05:40→22:23)
[2018-11-02] MEDS: Vancomycin 1gm in NS 250ml 1 GM/250 ML BAG IVPB SCH ×2 (05:40→19:36)
[2018-11-02 06:32] LABS: BASO # 0.01 K/mm3 (0.0-2.0); BASO % 0.1 % (0.0-3.0); EOS # 0.4 (0.0-0.7); EOS % 3.6 % (1.5-5.0); GRAN # 9.82 (1.4-6.5); GRAN % 81.7 % (50.0-68.0); HEMOGLOBIN 8.1 g/dL (14.0-18.0); LYMPH # 1.2 (1.2-3.4); LYMPH % 10.2 % (22.0-35.0); MEAN CELL VOLUME 80.7 fl (80.0-105.0); MEAN CORPUSCULAR HEMOGLOBIN 24.1 pg (25.0-35.0); MEAN CORPUSCULAR HGB CONC 29.9 g/dl (31.0-37.0); MEAN PLATELET VOLUME 10.1 fl (7.0-11.0); MONO # 0.5 (0.1-0.6); MONO % 4.4 % (1.0-6.0); RBC 3.36 10^6/uL (3.5-6.1); RED CELL DISTRIBUTION WIDTH 17.1 % (11.5-14.5)
[2018-11-02 06:35] LABS: ALB/GLOB RATIO 0.6 (1.1-1.8); ALBUMIN 2.3 g/dL (3.0-4.8); ALT/SGPT 28 U/L (7-56); AST/SGOT 77 U/L (17-59); BILIRUBIN,DIRECT 0.3 mg/dL (0.0-0.4); BLOOD UREA NITROGEN 28 mg/dL (7-21); CALCIUM 8.5 mg/dL (8.4-10.5); GFR NON-AFRICAN AMERICAN > 60
[2018-11-02] MEDS ORDERED: Insulin Human NPH 1 UNITS/0.01 ML SC SCH (08:30)
[2018-11-02] MEDS: Insulin Human NPH 1 UNITS/0.01 ML SC SCH ×3 (08:41→19:46)
[2018-11-02] MEDS: Multi Vitamins 15 mL UD Oral Solution PEG SCH (08:42)
[2018-11-02] MEDS: Enoxaparin 40 mg Syringe SC SCH (10:37)
[2018-11-02] MEDS: levoFLOXacin 750 mg in D5W 750 MG/150 ML BAG IVPB SCH (10:37)
[2018-11-02] MEDS: Ascorbic Acid 500 mg/5 ml Liq(50 ml) PEG SCH (10:38)
[2018-11-02] MEDS: Dextrose 5%/0.45% NS 1,000 ML IV SCH (10:43)
[2018-11-02] MEDS ORDERED: DiphenhydrAMINE 50 mg/ml Inj IVP ONE (11:00)
--- NOTE | 2018-11-02 13:16 | PN ---
DATE: 11/02/2018 SUBJECTIVE: The patient is in room 266, bed 1. Overnight nurse's notes were reviewed. The patient stayed comfortable. The patient has been responsive to verbal and tactile stimuli. The patient is bedridden. The patient is lying in the bed. No adverse events noted. The patient continued on the percutaneous endoscopic gastrostomy tube feeding, IV fluids. PHYSICAL EXAMINATION: VITAL SIGNS: T-max in the last 24 hours 100.7, down to 99.6. Telemetry shows sinus rhythm, sinus tachycardia. Heart rate 80s, 93, 99, 98, down to 87 this morning. Blood pressure 140/66, 168/79. Respirations 20. O2 sat 100 percent. Head examination normocephalic, atraumatic. HEENT examination shows pinkish pale conjunctivae. Dry oral mucosa. NECK: No neck rigidity. CHEST: Kyphosis. LUNGS: Show positive rhonchi bilaterally, right more than the left. CARDIOVASCULAR: S1, S2, regular rhythm. ABDOMEN: Soft. Positive bowel sounds. Positive gastrostomy. Genitalia: Male. Positive Vega catheter. EXTREMITIES: Extremity shows no pitting edema. Positive flexion contractures of the upper and lower extremity noted, increased rigidity and increased tone noted. MUSCULOSKELETAL: As per the body mass index. Gait examination is not tested. Sacral examination has decubitus ulceration. NEUROLOGICAL: Limited as the patient is barely responsive and communicative. LABORATORY DATA: On 11/02/2018, WBC count is down to 12,000 from 23,000. Hemoglobin and hematocrit has dropped to 8.1 and 27.1. Platelets 378. Granulocytes 82 percent segs. Sodium is down to 146, potassium is 3.7, chloride 116, CO2 of 28, BUN 28, creatinine 0.8, glucose 165. Calcium 8.5, phosphorus 3.6, magnesium 2.2. AST 77, alk phos 214, albumin 2.3. Sacral wound is growing Gram-negative dahiana. Positive MRSA of nares noted. IMPRESSION AND PLAN: 1. Severe sepsis with right lower lobe healthcare-associated pneumonia versus aspiration pneumonia. 2. Fever. 3. Tachycardia. 4. Leukocytosis with granulocytosis, slowly resolving. 5. Anemia with decreasing hemoglobin and hematocrit. 6. [id number] diabetes mellitus with hyperglycemia. 7. Questionable transaminitis. 8. [id number] hypoalbuminemia. 9. Positive methicillin-resistant Staphylococcus aureus, nares. 10. Severe advanced dementia and Parkinson's disease. 11. Sacral decubitus ulceration with Gram-negative dahiana. 12. Severe deconditioning and gait dysfunction with bedridden status and functional quadriplegia. 13. Upper and lower extremity flexion contractures and rigidity. 14. Feeding dysfunction with gastrostomy tube placement. 15. Voiding dysfunction with possible neurogenic bladder requiring chronic indwelling Vega catheter. 16. Hypertension. PLAN: At this time, the patient has been reordered packed red blood cell transfusion today. The patient was unable to get packed red blood cell transfusion yesterday secondary to low-grade fever. The patient has been started on basal insulin NPH 5 units at 7:00 a.m. and NPH 5 units at 6:00 p.m. The patient will be maintained on sliding scale coverage every 6 hours. The patient will be continued on GI, DVT prophylaxis with Protonix and Lovenox. The patient is presently on IV fluid D5 half normal saline at 60 mL an hour, which will be considered to be discontinued if the patient's electrolytes are within normal limits and sodium stays within normal limits. The patient is to be continued on IV antibiotics, meropenem IV every 8 hours, vancomycin 1 g IV every 12, Tamiflu 75 mg twice a day. At present, the patient is to be continued with head of the bed at 30-45 degrees, reposition in bed every 2 hours, aspiration precautions, suction oral airway. The patient will be ordered transfusion of PRBC with premedications ordered. The patient's daughter, Cristal, has been updated about the patient's condition, diagnoses, overall guarded to poor prognosis which she acknowledged and understood. At present, the patient's overall prognosis is guarded to poor with declining overall health status, which the patient's family is aware of. The patient's telemetry will be considered for discontinuation. Dictated and electronically signed, not read. Cameron Quinteros MD
[2018-11-02] MEDS: Mupirocin 2% Ointment 15 GM TUBE NS SCH ×2 (13:54→19:25)
--- NOTE | 2018-11-02 17:10 | CP.PCM.PN ---
<Adrienne Butler - Last Filed: 11/02/18 17:06> Subjective - Date & Time of Evaluation Date of Evaluation: 11/02/18 Time of Evaluation: 10:00 - Subjective Subjective: ID Progress Note - Dr Michelle Patient seen and examined at bedside. No acute or adverse events overnight, as per nursing staff. Pt resting comfortably. Objective - Vital Signs/Intake and Output Vital Signs (last 24 hours): Temp Pulse Resp BP Pulse Ox 98.7 F 88 18 143/74 100 11/02/18 15:06 11/02/18 15:06 11/02/18 15:06 11/02/18 15:06 11/02/18 06:00 Intake and Output: 11/02/18 11/02/18 06:59 18:59 Intake Total 4710 325 Output Total 1000 Balance 3710 325 - Medications Medications: Current Medications Acetaminophen (Tylenol 650 Mg Supp) 650 mg RC Q6H PRN PRN Reason: Temp>/=99.5F, pain (mod) Last Admin: 11/02/18 10:43 Dose: 650 mg Acetaminophen (Tylenol 650 Mg Supp) 650 mg RC Q6H PRN PRN Reason: TEMP>=99.5F Last Admin: 10/30/18 11:50 Dose: 650 mg Acetaminophen (Tylenol 650mg/20.3ml Solution Ud) 650 mg PEG Q6H PRN PRN Reason: temp>=99.5F Last Admin: 11/02/18 07:02 Dose: 650 mg Acetylcysteine (Acetylcysteine 20%) 4 ml IH [id number] [facility] Last Admin: 11/02/18 13:55 Dose: 4 ml Ascorbic Acid (Vitamin C Liq) 500 mg PEG DAILY [facility] Last Admin: 11/02/18 10:38 Dose: Not Given Aspirin (Aspirin Chewable) 81 mg PEG DAILY [facility] Last Admin: 11/02/18 10:37 Dose: 81 mg Carbidopa/Levodopa (Sinemet) 1 tab PEG 5XD [facility] Last Admin: 11/02/18 10:37 Dose: 1 tab Enoxaparin Sodium (Lovenox) 40 mg SC DAILY [facility]; Protocol Last Admin: 11/02/18 10:37 Dose: 40 mg Levofloxacin/Dextrose (Levaquin 750mg) 750 mg in 150 mls @ 100 mls/hr IVPB DAILY [facility]; Protocol Stop: 11/07/18 22:38 Last Admin: 11/01/18 11:46 Dose: 100 mls/hr Meropenem (Merrem Iv 1 Gm Premix) 1 gm in 50 mls @ 100 mls/hr IVPB Q8 [facility]; Protocol Last Admin: 11/02/18 05:40 Dose: 100 mls/hr Vancomycin HCl (Vancomycin 1gm) 1 gm in 250 mls @ 167 mls/hr IVPB Q12H [facility]; Protocol Last Admin: 11/02/18 05:40 Dose: 167 mls/hr Dextrose/Sodium Chloride (Dextrose 5%/0.45% Ns 1000 Ml) 1,000 mls @ 60 mls/hr IV .[id number] [facility] Last Admin: 11/02/18 10:43 Dose: 60 mls/hr Insulin Human NPH (Humulin N) 5 units SC DAILY [facility] Last Admin: 11/02/18 10:38 Dose: Not Given Insulin Human NPH (Humulin N) 5 units SC DAILY@1800 [facility] Insulin Human Regular (Humulin R Low) 0 units SC Q6H [facility]; Protocol Last Admin: 11/02/18 08:46 Dose: 1 unit Levalbuterol HCl (Xopenex) 0.63 mg IH [id number] [facility] Last Admin: 11/02/18 13:55 Dose: 0.63 mg Metoprolol Tartrate (Lopressor) 50 mg PEG Q8H [facility] Last Admin: 11/02/18 12:32 Dose: 50 mg Multivitamins/Vitamin C (Multi-Delyn Liquid) 15 ml PEG 0800 [facility] Last Admin: 11/02/18 08:42 Dose: 15 ml Mupirocin (Bactroban Ointment) 0 gm NS BID [facility] Stop: 11/05/18 18:01 Last Admin: 11/02/18 13:54 Dose: 1 applic Ondansetron HCl (Zofran Inj) 4 mg IVP Q4H PRN PRN Reason: Nausea/Vomiting Oseltamivir Phosphate (Tamiflu Susp) 75 mg PEG BID [facility]; Protocol Stop: 11/07/18 12:32 Pantoprazole Sodium (Protonix Inj) 40 mg IVP DAILY [facility] Last Admin: 11/02/18 10:37 Dose: 40 mg - Labs Labs: 11/02/18 06:00 11/02/18 06:00 PT 19.0 SECONDS (9.4-12.5) H 10/29/18 19:03 INR 1.65 10/29/18 19:03 APTT 35.5 Seconds (25.1-36.5) 10/29/18 19:03 - Constitutional Appears: No Acute Distress, Chronically Ill - Head Exam Head Exam: ATRAUMATIC, NORMAL INSPECTION, NORMOCEPHALIC - Eye Exam Eye Exam: EOMI, Normal appearance, PERRL - ENT Exam ENT Exam: Mucous Membranes Moist, Normal Exam - Respiratory Exam Respiratory Exam: Decreased Breath Sounds - Cardiovascular Exam Cardiovascular Exam: REGULAR RHYTHM, +S1, +S2 - GI/Abdominal Exam GI & Abdominal Exam: Soft, Normal Bowel Sounds. absent: Tenderness - Neurological Exam Neurological Exam: Altered, Awake, CN II-XII Intact - Psychiatric Exam Psychiatric exam: Normal Affect, Normal Mood - Skin Skin Exam: Dry, Intact, Normal Color, Warm Assessment and Plan - Assessment and Plan (Free Text) Assessment: 83 non-verbal and bedbound M with a PMHx of DM2, dementia, indwelling malik catheter, HTN, and parkinson's disease that [place] [facility] [place] [facility] ([facility]) after pt found to have right lower lobe infiltrates. Severe Sepsis HCAP DM2 Indwelling Malik HTN Parkinsons Dz Plan: CXR reviewed, found to have right lower lobe infiltrates, coming from [facility], significant leukocytosis, lactic acid of 2.2 ESBL day 4 of Tamiflu, merrem, vancomycin, doxycycline po Monitor clinically Will Follow up <El Michelle - Last Filed: 11/02/18 21:07> Objective - Vital Signs/Intake and Output Vital Signs (last 24 hours): Temp Pulse Resp BP Pulse Ox 98.7 F 88 18 143/74 100 11/02/18 15:06 11/02/18 15:06 11/02/18 15:06 11/02/18 15:06 11/02/18 06:00 Intake and Output: 11/02/18 11/03/18 18:59 06:59 Intake Total 325 Balance 325 - Medications Medications: Current Medications Acetaminophen (Tylenol 650 Mg Supp) 650 mg RC Q6H PRN PRN Reason: Temp>/=99.5F, pain (mod) Last Admin: 11/02/18 10:43 Dose: 650 mg Acetaminophen (Tylenol 650 Mg Supp) 650 mg RC Q6H PRN PRN Reason: TEMP>=99.5F Last Admin: 10/30/18 11:50 Dose: 650 mg Acetaminophen (Tylenol 650mg/20.3ml Solution Ud) 650 mg PEG Q6H PRN PRN Reason: temp>=99.5F Last Admin: 11/02/18 07:02 Dose: 650 mg Acetylcysteine (Acetylcysteine 20%) 4 ml IH [id number] [facility] Last Admin: 11/02/18 13:55 Dose: 4 ml Ascorbic Acid (Vitamin C Liq) 500 mg PEG DAILY [facility] Last Admin: 11/02/18 10:38 Dose: Not Given Aspirin (Aspirin Chewable) 81 mg PEG DAILY [facility] Last Admin: 11/02/18 10:37 Dose: 81 mg Carbidopa/Levodopa (Sinemet) 1 tab PEG 5XD [facility] Last Admin: 11/02/18 19:35 Dose: Not Given Enoxaparin Sodium (Lovenox) 40 mg SC DAILY [facility]; Protocol Last Admin: 11/02/18 10:37 Dose: 40 mg Levofloxacin/Dextrose (Levaquin 750mg) 750 mg in 150 mls @ 100 mls/hr IVPB DAILY [facility]; Protocol Stop: 11/07/18 22:38 Last Admin: 11/01/18 11:46 Dose: 100 mls/hr Meropenem (Merrem Iv 1 Gm Premix) 1 gm in 50 mls @ 100 mls/hr IVPB Q8 [facility]; Protocol Last Admin: 11/02/18 14:00 Dose: Not Given Vancomycin HCl (Vancomycin 1gm) 1 gm in 250 mls @ 167 mls/hr IVPB Q12H [facility]; Protocol Last Admin: 11/02/18 19:36 Dose: 167 mls/hr Dextrose/Sodium Chloride (Dextrose 5%/0.45% Ns 1000 Ml) 1,000 mls @ 60 mls/hr IV .[id number] [facility] Last Admin: 11/02/18 10:43 Dose: 60 mls/hr Insulin Human NPH (Humulin N) 5 units SC DAILY [facility] Last Admin: 11/02/18 10:38 Dose: Not Given Insulin Human NPH (Humulin N) 5 units SC DAILY@1800 [facility] Last Admin: 12/10/18 19:46 Dose: 5 units Insulin Human Regular (Humulin R Low) 0 units SC Q6H [facility]; Protocol Last Admin: 11/02/18 15:00 Dose: Not Given Levalbuterol HCl (Xopenex) 0.63 mg IH [id number] [facility] Last Admin: 11/02/18 13:55 Dose: 0.63 mg Metoprolol Tartrate (Lopressor) 50 mg PEG Q8H [facility] Last Admin: 11/02/18 12:32 Dose: 50 mg Multivitamins/Vitamin C (Multi-Delyn Liquid) 15 ml PEG 0800 [facility] Last Admin: 11/02/18 08:42 Dose: 15 ml Mupirocin (Bactroban Ointment) 0 gm NS BID [facility] Stop: 11/05/18 18:01 Last Admin: 11/02/18 19:25 Dose: Not Given Ondansetron HCl (Zofran Inj) 4 mg IVP Q4H PRN PRN Reason: Nausea/Vomiting Oseltamivir Phosphate (Tamiflu Susp) 75 mg PEG BID [facility]; Protocol Stop: 11/07/18 12:32 Last Admin: 11/02/18 19:36 Dose: Not Given Pantoprazole Sodium (Protonix Inj) 40 mg IVP DAILY [facility] Last Admin: 11/02/18 10:37 Dose: 40 mg - Labs Labs: 11/02/18 06:00 11/02/18 06:00 PT 19.0 SECONDS (9.4-12.5) H 10/29/18 19:03 INR 1.65 10/29/18 19:03 APTT 35.5 Seconds (25.1-36.5) 10/29/18 19:03 Assessment and Plan - Assessment and Plan (Free Text) Assessment: Infectious diseases Attending Physician Attestation Patient seen and examined, discussed with nurses medical assistants phlebotomists. I have reviewed the patient's history of present illness, past medical, social, personal and family histories, pertinent physical exam findings, course so far in this hospital admission, pertinent laboratory and imaging results. I agree with the above findings, assessment and plan. In addition, will continue Vanco, Doxy and Merrem as well Tamiflu (day 4) for sepsis due to right lower lobe HCAP. Complete 4-7 days of antibiotics. Will continue to monitor clinically.
[2018-11-02] MEDS: Oseltamivir 6 MG/ML PEG SCH ×2 (19:36→22:24)
[2018-11-03] MEDS: Acetylcysteine 20% Inhal Soln (4ml) IH SCH ×4 (02:20→20:23)
[2018-11-03] MEDS: Levalbuterol 0.63 MG/3 ML Inhal Soln UD IH SCH ×4 (02:20→20:23)
[2018-11-03] MEDS: Carbidopa/Levodopa 25/250 PEG SCH ×5 (05:28→21:05)
[2018-11-03] MEDS: Meropenem IV 1 gm in NS 1 GM/50 ML BAG IVPB SCH ×3 (05:28→21:05)
[2018-11-03] MEDS: Vancomycin 1gm in NS 250ml 1 GM/250 ML BAG IVPB SCH ×2 (06:26→18:39)
[2018-11-03 08:11] LABS: BASO # 0.02 K/mm3 (0.0-2.0); BASO % 0.2 % (0.0-3.0); EOS # 0.3 (0.0-0.7); EOS % 2.3 % (1.5-5.0); GRAN # 8.23 (1.4-6.5); GRAN % 74.9 % (50.0-68.0); HEMOGLOBIN 9.8 g/dL (14.0-18.0); LYMPH # 1.9 (1.2-3.4); MEAN CELL VOLUME 79.7 fl (80.0-105.0); MEAN CORPUSCULAR HEMOGLOBIN 25.5 pg (25.0-35.0); MEAN CORPUSCULAR HGB CONC 31.9 g/dl (31.0-37.0); MEAN PLATELET VOLUME 9.9 fl (7.0-11.0); MONO # 0.6 (0.1-0.6); MONO % 5.6 % (1.0-6.0); RBC 3.85 10^6/uL (3.5-6.1); RED CELL DISTRIBUTION WIDTH 17.1 % (11.5-14.5)
[2018-11-03] MEDS: Multi Vitamins 15 mL UD Oral Solution PEG SCH (08:12)
[2018-11-03 08:17] LABS: ALB/GLOB RATIO 0.6 (1.1-1.8); ALBUMIN 2.3 g/dL (3.0-4.8); ALT/SGPT 23 U/L (7-56); AST/SGOT 64 U/L (17-59); BILIRUBIN,DIRECT 0.4 mg/dL (0.0-0.4); BLOOD UREA NITROGEN 24 mg/dL (7-21); CALCIUM 8.2 mg/dL (8.4-10.5); GFR NON-AFRICAN AMERICAN > 60
--- NOTE | 2018-11-03 08:36 | RAD ---
Date of service: 11/03/2018 HISTORY: RLL PNEUMONIA COMPARISON: Portable chest 10/29/2018. FINDINGS: LUNGS: Persistent infiltrate is appreciate the mid inferior right lung zone with definitive air bronchograms scattered throughout the patchy density here. Linear atelectasis is appreciate the inferior left lung zone with left lung otherwise clear. PLEURA: No significant pleural effusion identified, no pneumothorax apparent. CARDIOVASCULAR: No aortic atherosclerotic calcification present. Normal cardiac size. No pulmonary vascular congestion. OSSEOUS STRUCTURES: No significant abnormalities. VISUALIZED UPPER ABDOMEN: Normal. OTHER FINDINGS: None. IMPRESSION: Persistent right lower lobe pneumonia.
--- NOTE | 2018-11-03 09:56 | CP.PCM.PN ---
<Adrienne Butler - Last Filed: 11/03/18 10:37> Subjective - Date & Time of Evaluation Date of Evaluation: 11/03/18 Time of Evaluation: 10:00 - Subjective Subjective: ID Progress Note - Dr Michelle Patient seen and examined at bedside. Pt has been tachycardic and hypertensive overnight, as per nursing staff. Pt resting comfortably. Feeding tube and malik in place. Objective - Vital Signs/Intake and Output Vital Signs (last 24 hours): Temp Pulse Resp BP Pulse Ox 97.9 F 97 H 20 160/77 H 100 11/03/18 06:00 11/03/18 06:00 11/03/18 06:00 11/03/18 06:00 11/03/18 06:00 Intake and Output: 11/03/18 11/03/18 06:59 18:59 Intake Total 2240 Output Total 2461 Balance -221 - Medications Medications: Current Medications Acetaminophen (Tylenol 650 Mg Supp) 650 mg RC Q6H PRN PRN Reason: Temp>/=99.5F, pain (mod) Last Admin: 11/02/18 10:43 Dose: 650 mg Acetaminophen (Tylenol 650 Mg Supp) 650 mg RC Q6H PRN PRN Reason: TEMP>=99.5F Last Admin: 10/30/18 11:50 Dose: 650 mg Acetaminophen (Tylenol 650mg/20.3ml Solution Ud) 650 mg PEG Q6H PRN PRN Reason: temp>=99.5F Last Admin: 11/02/18 07:02 Dose: 650 mg Acetylcysteine (Acetylcysteine 20%) 4 ml IH [id number] [facility] Last Admin: 11/03/18 07:26 Dose: 4 ml Ascorbic Acid (Vitamin C Liq) 500 mg PEG DAILY [facility] Last Admin: 11/02/18 10:38 Dose: Not Given Aspirin (Aspirin Chewable) 81 mg PEG DAILY [facility] Last Admin: 11/02/18 10:37 Dose: 81 mg Carbidopa/Levodopa (Sinemet) 1 tab PEG 5XD [facility] Last Admin: 11/03/18 05:28 Dose: 1 tab Enoxaparin Sodium (Lovenox) 40 mg SC DAILY [facility]; Protocol Last Admin: 11/02/18 10:37 Dose: 40 mg Levofloxacin/Dextrose (Levaquin 750mg) 750 mg in 150 mls @ 100 mls/hr IVPB LORE[facility] Y [facility]; Protocol Stop: 11/07/18 22:38 Last Admin: 11/01/18 11:46 Dose: 100 mls/hr Meropenem (Merrem Iv 1 Gm Premix) 1 gm in 50 mls @ 100 mls/hr IVPB Q8 [facility]; Protocol Last Admin: 11/03/18 05:28 Dose: 100 mls/hr Vancomycin HCl (Vancomycin 1gm) 1 gm in 250 mls @ 167 mls/hr IVPB Q12H [facility]; Protocol Last Admin: 11/03/18 06:26 Dose: 167 mls/hr Dextrose/Sodium Chloride (Dextrose 5%/0.45% Ns 1000 Ml) 1,000 mls @ 60 mls/hr IV .[id number] [facility] Last Admin: 11/02/18 10:43 Dose: 60 mls/hr Insulin Human NPH (Humulin N) 5 units SC DAILY [facility] Last Admin: 11/02/18 10:38 Dose: Not Given Insulin Human NPH (Humulin N) 5 units SC DAILY@1800 [facility] Last Admin: 11/02/18 19:46 Dose: 5 units Insulin Human Regular (Humulin R Low) 0 units SC Q6H [facility]; Protocol Last Admin: 11/02/18 22:22 Dose: Not Given Levalbuterol HCl (Xopenex) 0.63 mg IH [id number] [facility] Last Admin: 11/03/18 07:26 Dose: 0.63 mg Metoprolol Tartrate (Lopressor) 50 mg PEG Q8H [facility] Last Admin: 11/03/18 05:27 Dose: 50 mg Multivitamins/Vitamin C (Multi-Delyn Liquid) 15 ml PEG 0800 [facility] Last Admin: 11/02/18 08:42 Dose: 15 ml Mupirocin (Bactroban Ointment) 0 gm NS BID [facility] Stop: 11/05/18 18:01 Last Admin: 11/02/18 19:25 Dose: Not Given Ondansetron HCl (Zofran Inj) 4 mg IVP Q4H PRN PRN Reason: Nausea/Vomiting Oseltamivir Phosphate (Tamiflu Susp) 75 mg PEG BID [facility]; Protocol Stop: 11/07/18 12:32 Last Admin: 11/02/18 22:24 Dose: 75 mg Pantoprazole Sodium (Protonix Inj) 40 mg IVP DAILY [facility] Last Admin: 11/02/18 10:37 Dose: 40 mg - Labs Labs: 11/03/18 08:00 11/03/18 08:00 PT 19.0 SECONDS (9.4-12.5) H 10/29/18 19:03 INR 1.65 10/29/18 19:03 APTT 35.5 Seconds (25.1-36.5) 10/29/18 19:03 - Constitutional Appears: Cachectic, Chronically Ill - Head Exam Head Exam: ATRAUMATIC, NORMAL INSPECTION, NORMOCEPHALIC - Eye Exam Eye Exam: EOMI, Normal appearance, PERRL Pupil Exam: NORMAL ACCOMODATION, PERRL - ENT Exam ENT Exam: Mucous Membranes Dry - Respiratory Exam Respiratory Exam: Decreased Breath Sounds - Cardiovascular Exam Cardiovascular Exam: Tachycardia, +S1, +S2 - GI/Abdominal Exam GI & Abdominal Exam: Soft, Normal Bowel Sounds. absent: Tenderness - Neurological Exam Neurological Exam: Altered, Awake - Psychiatric Exam Psychiatric exam: Normal Affect, Normal Mood - Skin Skin Exam: Dry, Normal Color, Warm Assessment and Plan - Assessment and Plan (Free Text) Assessment: 83 non-verbal and bedbound M with a PMHx of DM2, dementia, indwelling malik catheter, HTN, and parkinson's disease that [place] [facility] [facility] ([facility]) after pt found to have right lower lobe infiltrates. Severe Sepsis HCAP DM2 Indwelling Malik HTN Parkinsons Dz Plan: CXR reviewed, found to have right lower lobe infiltrates, coming from residential, significant leukocytosis, lactic acid of 2.2 ESBL day 5 of Tamiflu, merrem, vancomycin, doxycycline po for sepsis due to right lower lobe HCAP. Complete 4-7 days of antibiotics. Will continue to monitor clinically. <El Michelle - Last Filed: 11/03/18 17:29> Objective - Vital Signs/Intake and Output Vital Signs (last 24 hours): Temp Pulse Resp BP Pulse Ox 97.9 F 99 H 20 162/80 H 100 11/03/18 06:00 18 11:17 11/03/18 06:00 11/03/18 11:17 11/03/18 06:00 Intake and Output: 11/03/18 11/03/18 06:59 18:59 Intake Total 2240 Output Total 2461 Balance -221 - Medications Medications: Current Medications Acetaminophen (Tylenol 650 Mg Supp) 650 mg RC Q6H PRN PRN Reason: Temp>/=99.5F, pain (mod) Last Admin: 11/02/18 10:43 Dose: 650 mg Acetaminophen (Tylenol 650 Mg Supp) 650 mg RC Q6H PRN PRN Reason: TEMP>=99.5F Last Admin: 10/30/18 11:50 Dose: 650 mg Acetaminophen (Tylenol 650mg/20.3ml Solution Ud) 650 mg PEG Q6H PRN PRN Reason: temp>=99.5F Last Admin: 11/02/18 07:02 Dose: 650 mg Acetylcysteine (Acetylcysteine 20%) 4 ml IH [id number] [facility] Last Admin: 11/03/18 13:19 Dose: 4 ml Ascorbic Acid (Vitamin C Liq) 500 mg PEG DAILY [facility] Last Admin: 11/03/18 10:53 Dose: 500 mg Aspirin (Aspirin Chewable) 81 mg PEG DAILY [facility] Last Admin: 11/03/18 11:08 Dose: 81 mg Carbidopa/Levodopa (Sinemet) 1 tab PEG 5XD [facility] Last Admin: 11/03/18 14:03 Dose: 1 tab Enoxaparin Sodium (Lovenox) 40 mg SC DAILY [facility]; Protocol Last Admin: 11/03/18 11:12 Dose: 40 mg Levofloxacin/Dextrose (Levaquin 750mg) 750 mg in 150 mls @ 100 mls/hr IVPB DAILY [facility]; Protocol Stop: 11/07/18 22:38 Last Admin: 11/03/18 11:16 Dose: 100 mls/hr Meropenem (Merrem Iv 1 Gm Premix) 1 gm in 50 mls @ 100 mls/hr IVPB Q8 [facility]; Protocol Last Admin: 11/03/18 14:03 Dose: 100 mls/hr Vancomycin HCl (Vancomycin 1gm) 1 gm in 250 mls @ 167 mls/hr IVPB Q12H [facility]; Protocol Last Admin: 11/03/18 06:26 Dose: 167 mls/hr Dextrose/Sodium Chloride (Dextrose 5%/0.45% Ns 1000 Ml) 1,000 mls @ 60 mls/hr IV .[id number] [facility] Last Admin: 11/03/18 14:03 Dose: 60 mls/hr Insulin Human NPH (Humulin N) 5 units SC DAILY [facility] Last Admin: 11/03/18 10:09 Dose: 5 units Insulin Human NPH (Humulin N) 5 units SC DAILY@1800 [facility] Last Admin: 11/02/18 19:46 Dose: 5 units Insulin Human Regular (Humulin R Low) 0 units SC Q6H [facility]; Protocol Last Admin: 11/03/18 11:11 Dose: Not Given Levalbuterol HCl (Xopenex) 0.63 mg IH [id number] [facility] Last Admin: 11/03/18 13:19 Dose: 0.63 mg Metoprolol Tartrate (Lopressor) 50 mg PEG Q8H [facility] Last Admin: 11/03/18 11:17 Dose: 50 mg Multivitamins/Vitamin C (Multi-Delyn Liquid) 15 ml PEG 0800 [facility] Last Admin: 11/03/18 08:12 Dose: 15 ml Mupirocin (Bactroban Ointment) 0 gm NS BID [facility] Stop: 11/05/18 18:01 Last Admin: 11/03/18 10:02 Dose: 1 applic Ondansetron HCl (Zofran Inj) 4 mg IVP Q4H PRN PRN Reason: Nausea/Vomiting Oseltamivir Phosphate (Tamiflu Susp) 75 mg PEG BID [facility]; Protocol Stop: 11/07/18 12:32 Last Admin: 11/03/18 10:20 Dose: 75 mg Pantoprazole Sodium (Protonix Inj) 40 mg IVP DAILY [facility] Last Admin: 11/03/18 11:12 Dose: 40 mg - Labs Labs: 11/03/18 08:00 11/03/18 08:00 PT 19.0 SECONDS (9.4-12.5) H 10/29/18 19:03 INR 1.65 10/29/18 19:03 APTT 35.5 Seconds (25.1-36.5) 10/29/18 19:03 Assessment and Plan - Assessment and Plan (Free Text) Assessment: Infectious diseases Attending Physician Attestation Patient seen and examined, discussed with medical collector. I have reviewed the patient's history of present illness, past medical, social, personal and family histories, pertinent physical exam findings, course so far in this hospital admission, pertinent laboratory and imaging results. I agree with the above findings, assessment and plan. I
[2018-11-03] MEDS: Mupirocin 2% Ointment 15 GM TUBE NS SCH ×2 (10:02→18:25)
[2018-11-03] MEDS: Insulin Human NPH 1 UNITS/0.01 ML SC SCH ×2 (10:09→18:30)
[2018-11-03] MEDS: Oseltamivir 6 MG/ML PEG SCH ×2 (10:20→18:26)
--- NOTE | 2018-11-03 10:45 | CARD ---
APPROVED REPORT Date of service: 10/29/2018 EKG Measurement Heart [id number] <Conclusion> Sinus tachycardia Otherwise normal ECG
[2018-11-03] MEDS: Ascorbic Acid 500 mg/5 ml Liq(50 ml) PEG SCH (10:53)
[2018-11-03] MEDS: Insulin Reg-LOW-Coverage SC SCH ×3 (11:11→22:43)
[2018-11-03] MEDS: Enoxaparin 40 mg Syringe SC SCH (11:12)
[2018-11-03] MEDS: levoFLOXacin 750 mg in D5W 750 MG/150 ML BAG IVPB SCH (11:16)
--- NOTE | 2018-11-03 12:08 | PN ---
DATE: 11/03/2018 SUBJECTIVE: The patient is now moved to 565, bed 1. The patient's telemetry was discontinued. Overnight nurse's notes were reviewed. The patient has been awake with eyes open, responsive to verbal stimuli. With eyes open, the patient is bedridden lying in the bed on specialty mattress with the head of the bed elevated. No adverse events were documented. PHYSICAL EXAMINATION: VITAL SIGNS: T-max 98.7, pulse 88-98, blood pressure 143/74. 167/83, 160/77, respirations 21, O2 sat 99%. HEENT: Head: Normocephalic, atraumatic. HEENT examination shows pinkish pale conjunctivae. Anicteric sclerae. No oropharyngeal lesion. No neck rigidity. Soft carotid bruit. CHEST: Kyphosis. LUNGS; Shows positive rhonchi, occasional crepitus, right more than the left. CARDIOVASCULAR: S1, S2, regular rhythm. Questionable soft systolic murmur left sternal border, right second intercostal space, left second intercostal space. ABDOMEN: Soft. Positive bowel sound, positive gastrostomy. GENITALIA: Male. Positive Vega catheter. EXTREMITIES: Shows no pitting edema, no calf tenderness. No Corinna's signs. NEUROLOGIC: The patient is awake. Eyes open, very minimally responsive to verbal stimuli. Positive contractures of upper and lower extremity. Positive muscle wasting noted. Gait examination, bedridden. Positive sacral decubitus ulceration noted which is unstageable at present. 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 Sensitive to cephalosporin, meropenem and Zosyn. Fingerstick blood sugar 166, 148.42, 132. Urine Legionella is negative. WBC 11.0, hemoglobin/hematocrit 9.8, 30.7, platelet 393. Granulocytes 75% segs. Sodium 142, potassium 3.8, chloride 109, CO2 29, BUN 24, creatinine 0.6, glucose 150, calcium 8.2, phosphorus 3.1, magnesium 2.1, AST 64, alk phos 219, albumin 2.3. Chest x-ray which was done today shows persistent right lower lobe pneumonia with air bronchogram and left lower lobe atelectasis. IMPRESSION AND PLAN: 1. Severe sepsis with and dry with healthcare-associated right lower lobe possible aspiration pneumonia and persistent right lower lobe pneumonia and infiltrate with air bronchogram and left lower lobe and atelectasis. 2. Morganella morganii sacral decubitus ulceration. 3. Insulin-requiring diabetes mellitus with hyperglycemia. 4. Severe leukocytosis with granulocytosis. 5. Normocytic anemia. 6. Status post packed red blood cell transfusion. 7. Prerenal kidney injury. 8. Hypernatremia. 9 Questionable transaminitis with elevated AST and alkaline phosphatase. 10. Crzy-wv-qvuwlhui hypoalbuminemia and toev-cu-nhinxiyv mild protein malnutrition. 11. Severe deconditioning, severe gait dysfunction and bedridden status and functional quadriplegia. 12. Severe advanced dementia and severe advanced Parkinson's disease. 13. Feeding dysfunction, status post gastrostomy tube placement. 14. Possible neurogenic bladder with chronic indwelling Vega catheter and urinary retention. 15. Sacral decubitus ulceration. 16. Hypertension. 17. Tachycardia. 18. Fever. 19. Prerenal kidney injury, resolving. 20. Hypernatremia (resolved). PLAN: At this time, the patient is presently on IV fluid D5 half normal at 60 mL an hour. The patient is currently on meropenem 1 g IV every 8 hours, Levaquin 750 mg IV daily, vancomycin 1 g IV every 12 hours and Tamiflu 75 mg twice a day. The patient is on GI, DVT prophylaxis. The patient is to be continued on clonidine patch weekly. The patient is to be continued on Lopressor 50 mg three times a day via the PEG. The patient is to be continued on GI, DVT prophylaxis. The patient is to be continued with aspiration precautions, suction oral airway, head of the bed elevated at 30-45 degrees. The patient is to be continued on wound care. At present, the patient will be continued on IV antibiotics until discontinued by the Infectious Disease and then the patient will be considered for discharge back to [facility]. The patient's code status is DNR/DNI. PROGNOSIS: Guarded to poor. The patient's family aware of above. Dictated and electronically signed, not read. Cameron Quinteros MD
[2018-11-03] MEDS: Dextrose 5%/0.45% NS 1,000 ML IV SCH (14:03)
[2018-11-04] MEDS: Acetylcysteine 20% Inhal Soln (4ml) IH SCH ×4 (01:30→19:18)
[2018-11-04] MEDS: Levalbuterol 0.63 MG/3 ML Inhal Soln UD IH SCH ×4 (01:31→19:18)
[2018-11-04] MEDS: Meropenem IV 1 gm in NS 1 GM/50 ML BAG IVPB SCH ×3 (05:09→21:59)
[2018-11-04] MEDS: Vancomycin 1gm in NS 250ml 1 GM/250 ML BAG IVPB SCH ×2 (05:14→18:42)
[2018-11-04] MEDS: Carbidopa/Levodopa 25/250 PEG SCH ×5 (05:50→22:01)
[2018-11-04 07:16] LABS: BASO # 0.02 K/mm3 (0.0-2.0); BASO % 0.2 % (0.0-3.0); EOS # 0.2 (0.0-0.7); EOS % 2.3 % (1.5-5.0); GRAN # 6.83 (1.4-6.5); GRAN % 72.8 % (50.0-68.0); HEMOGLOBIN 9.3 g/dL (14.0-18.0); LYMPH # 1.8 (1.2-3.4); LYMPH % 18.7 % (22.0-35.0); MEAN CELL VOLUME 79.4 fl (80.0-105.0); MEAN CORPUSCULAR HEMOGLOBIN 24.5 pg (25.0-35.0); MEAN CORPUSCULAR HGB CONC 30.9 g/dl (31.0-37.0); MEAN PLATELET VOLUME 9.9 fl (7.0-11.0); MONO # 0.6 (0.1-0.6); RBC 3.79 10^6/uL (3.5-6.1); RED CELL DISTRIBUTION WIDTH 17.3 % (11.5-14.5); WHITE BLOOD COUNT 9.4 10^3/uL (4.5-11.0)
--- NOTE | 2018-11-04 07:26 | CP.PCM.PN ---
<Adrienne Butler - Last Filed: 11/04/18 11:20> Subjective - Date & Time of Evaluation Date of Evaluation: 11/04/18 Time of Evaluation: 07:15 - Subjective Subjective: ID Progress Note - Dr Michelle Patient seen and examined at bedside. Pt has been tachycardic and hypertensive overnight. Pt sacral ulcer found to be draining purulent from stage 4 ulcer. Wet to dry dressing applied. Pt resting comfortably. Feeding tube and malik in place . Contact and droplet isolation in place. Objective - Vital Signs/Intake and Output Vital Signs (last 24 hours): Temp Pulse Resp BP Pulse Ox 98.1 F 95 H 18 157/77 H 99 11/03/18 22:32 11/04/18 04:52 11/03/18 22:32 11/04/18 04:52 11/03/18 22:32 Intake and Output: 11/04/18 11/04/18 06:59 18:59 Output Total 1400 Balance -1400 - Medications Medications: Current Medications Acetaminophen (Tylenol 650 Mg Supp) 650 mg RC Q6H PRN PRN Reason: Temp>/=99.5F, pain (mod) Last Admin: 11/02/18 10:43 Dose: 650 mg Acetaminophen (Tylenol 650 Mg Supp) 650 mg RC Q6H PRN PRN Reason: TEMP>=99.5F Last Admin: 10/30/18 11:50 Dose: 650 mg Acetaminophen (Tylenol 650mg/20.3ml Solution Ud) 650 mg PEG Q6H PRN PRN Reason: temp>=99.5F Last Admin: 11/02/18 07:02 Dose: 650 mg Acetylcysteine (Acetylcysteine 20%) 4 ml IH [id number] [facility] Last Admin: 11/04/18 01:30 Dose: 4 ml Ascorbic Acid (Vitamin C Liq) 500 mg PEG DAILY [facility] Last Admin: 11/03/18 10:53 Dose: 500 mg Aspirin (Aspirin Chewable) 81 mg PEG DAILY [facility] Last Admin: 11/03/18 11:08 Dose: 81 mg Carbidopa/Levodopa (Sinemet) 1 tab PEG 5XD [facility] Last Admin: 11/03/18 21:05 Dose: 1 tab Enoxaparin Sodium (Lovenox) 40 mg SC DAILY [facility]; Protocol Last Admin: 11/03/18 11:12 Dose: 40 mg Meropenem (Merrem Iv 1 Gm Premix) 1 gm in 50 mls @ 100 mls/hr IVPB Q8 [facility]; Protocol Last Admin: 11/04/18 05:09 Dose: 100 mls/hr Vancomycin HCl (Vancomycin 1gm) 1 gm in 250 mls @ 167 mls/hr IVPB Q12H [facility]; Protocol Last Admin: 11/04/18 05:14 Dose: 167 mls/hr Dextrose/Sodium Chloride (Dextrose 5%/0.45% Ns 1000 Ml) 1,000 mls @ 60 mls/hr IV .[id number] [facility] Last Admin: 11/03/18 14:03 Dose: 60 mls/hr Insulin Human NPH (Humulin N) 5 units SC DAILY [facility] Last Admin: 11/03/18 10:09 Dose: 5 units Insulin Human NPH (Humulin N) 5 units SC DAILY@1800 [facility] Last Admin: 11/03/18 18:30 Dose: 5 units Insulin Human Regular (Humulin R Low) 0 units SC Q6H [facility]; Protocol Last Admin: 11/03/18 22:43 Dose: Not Given Levalbuterol HCl (Xopenex) 0.63 mg IH [id number] [facility] Last Admin: 11/04/18 01:31 Dose: 0.63 mg Metoprolol Tartrate (Lopressor) 50 mg PEG Q8H [facility] Last Admin: 11/04/18 04:52 Dose: 50 mg Multivitamins/Vitamin C (Multi-Delyn Liquid) 15 ml PEG 0800 [facility] Last Admin: 11/03/18 08:12 Dose: 15 ml Mupirocin (Bactroban Ointment) 0 gm NS BID [facility] Stop: 11/05/18 18:01 Last Admin: 11/03/18 18:25 Dose: 1 applic Ondansetron HCl (Zofran Inj) 4 mg IVP Q4H PRN PRN Reason: Nausea/Vomiting Oseltamivir Phosphate (Tamiflu Susp) 75 mg PEG BID [facility]; Protocol Stop: 11/07/18 12:32 Last Admin: 11/03/18 18:26 Dose: 75 mg Pantoprazole Sodium (Protonix Inj) 40 mg IVP DAILY [facility] Last Admin: 11/03/18 11:12 Dose: 40 mg - Labs Labs: 11/03/18 08:00 11/03/18 08:00 PT 19.0 SECONDS (9.4-12.5) H 10/29/18 19:03 INR 1.65 10/29/18 19:03 APTT 35.5 Seconds (25.1-36.5) 10/29/18 19:03 - Constitutional Appears: Chronically Ill - Head Exam Head Exam: ATRAUMATIC, NORMAL INSPECTION, NORMOCEPHALIC - Eye Exam Eye Exam: EOMI, Normal appearance, PERRL Pupil Exam: NORMAL ACCOMODATION, PERRL - ENT Exam ENT Exam: Mucous Membranes Dry - Respiratory Exam Respiratory Exam: Decreased Breath Sounds, Rhonchi - Cardiovascular Exam Cardiovascular Exam: Tachycardia, +S1, +S2 - GI/Abdominal Exam GI & Abdominal Exam: Soft, Normal Bowel Sounds. absent: Tenderness - Neurological Exam Neurological Exam: Altered - Psychiatric Exam Psychiatric exam: Flat Affect - Skin Additional comments: sacral stage 4 ulcer dressing intact Assessment and Plan - Assessment and Plan (Free Text) Assessment: 83 non-verbal and bedbound M with a PMHx of DM2, dementia, indwelling malik catheter, HTN, and parkinson's disease that presented to the [facility] from correction ([facility]) after pt found to have right lower lobe infiltrates. Severe Sepsis HCAP Stage 4 draining sacral ulcer DM2 Indwelling Malik HTN Parkinsons Dz Plan: CXR reviewed, found to have right lower lobe infiltrates, coming from correction, significant leukocytosis resolved now ESBL day 6 of Tamiflu, merrem, vancomycin, doxycycline po for sepsis due to right lower lobe HCAP. Complete 4-7 days of antibiotics. Wet to dry dressing for sacral ulcer Will continue to monitor clinically. <El Michelle - Last Filed: 11/04/18 21:07> Objective - Vital Signs/Intake and Output Vital Signs (last 24 hours): Temp Pulse Resp BP Pulse Ox 98.1 F 91 H 20 147/76 97 11/04/18 15:30 11/04/18 15:30 11/04/18 15:30 11/04/18 15:30 11/04/18 15:30 - Medications Medications: Current Medications Acetaminophen (Tylenol 650 Mg Supp) 650 mg RC Q6H PRN PRN Reason: Temp>/=99.5F, pain (mod) Last Admin: 11/02/18 10:43 Dose: 650 mg Acetaminophen (Tylenol 650 Mg Supp) 650 mg RC Q6H PRN PRN Reason: TEMP>=99.5F Last Admin: 10/30/18 11:50 Dose: 650 mg Acetaminophen (Tylenol 650mg/20.3ml Solution Ud) 650 mg PEG Q6H PRN PRN Reason: temp>=99.5F Last Admin: 11/02/18 07:02 Dose: 650 mg Acetylcysteine (Acetylcysteine 20%) 4 ml IH [id number] [facility] Last Admin: 11/04/18 19:18 Dose: 4 ml Ascorbic Acid (Vitamin C Liq) 500 mg PEG DAILY [facility] Last Admin: 11/04/18 10:06 Dose: 500 mg Aspirin (Aspirin Chewable) 81 mg PEG DAILY [facility] Last Admin: 11/04/18 10:04 Dose: 81 mg Carbidopa/Levodopa (Sinemet) 1 tab PEG 5XD [facility] Last Admin: 11/04/18 20:35 Dose: 1 tab Enoxaparin Sodium (Lovenox) 40 mg SC DAILY [facility]; Protocol Last Admin: 11/04/18 09:59 Dose: 40 mg Meropenem (Merrem Iv 1 Gm Premix) 1 gm in 50 mls @ 100 mls/hr IVPB Q8 [facility]; Protocol Last Admin: 11/04/18 13:49 Dose: 100 mls/hr Vancomycin HCl (Vancomycin 1gm) 1 gm in 250 mls @ 167 mls/hr IVPB Q12H [facility]; Protocol Last Admin: 11/04/18 18:42 Dose: 167 mls/hr Insulin Human NPH (Humulin N) 5 units SC DAILY [facility] Last Admin: 11/04/18 09:58 Dose: 5 units Insulin Human NPH (Humulin N) 5 units SC DAILY@1800 [facility] Last Admin: 11/04/18 18:55 Dose: 5 units Insulin Human Regular (Humulin R Low) 0 units SC Q6H [facility]; Protocol Last Admin: 11/04/18 18:41 Dose: Not Given Levalbuterol HCl (Xopenex) 0.63 mg IH [id number] [facility] Last Admin: 11/04/18 19:18 Dose: 0.63 mg Metoprolol Tartrate (Lopressor) 50 mg PEG Q8H [facility] Last Admin: 11/04/18 12:07 Dose: 50 mg Multivitamins/Vitamin C (Multi-Delyn Liquid) 15 ml PEG 0800 [facility] Last Admin: 11/04/18 08:50 Dose: 15 ml Mupirocin (Bactroban Ointment) 0 gm NS BID [facility] Stop: 11/05/18 18:01 Last Admin: 11/04/18 18:43 Dose: 1 applic Ondansetron HCl (Zofran Inj) 4 mg IVP Q4H PRN PRN Reason: Nausea/Vomiting Pantoprazole Sodium (Protonix Inj) 40 mg IVP DAILY [facility] Last Admin: 11/04/18 09:59 Dose: 40 mg - Labs Labs: 11/04/18 06:45 11/04/18 06:45 PT 19.0 SECONDS (9.4-12.5) H 10/29/18 19:03 INR 1.65 10/29/18 19:03 APTT 35.5 Seconds (25.1-36.5) 10/29/18 19:03 Assessment and Plan - Assessment and Plan (Free Text) Assessment: Infectious diseases Attending Physician Attestation Patient seen and examined, discussed with biomedical equipment tech. I have reviewed the patient's history of present illness, past medical, social, personal and family histories, pertinent physical exam findings, course so far in this hospital admission, pertinent laboratory and imaging results. I agree with the above findings, assessment and plan. In addition, will continue Merrem and Vancomycin for sepsis due to right lower lobe HCAP, with positive MRSA screen of the nares. Day 6 today of 7. Overall prognosis is poor.
[2018-11-04 07:38] LABS: ALB/GLOB RATIO 0.6 (1.1-1.8); ALBUMIN 2.3 g/dL (3.0-4.8); ALT/SGPT 41 U/L (7-56); AST/SGOT 63 U/L (17-59); BILIRUBIN,DIRECT 0.3 mg/dL (0.0-0.4); BLOOD UREA NITROGEN 22 mg/dL (7-21); CALCIUM 8.3 mg/dL (8.4-10.5); GFR NON-AFRICAN AMERICAN > 60
[2018-11-04] MEDS: Multi Vitamins 15 mL UD Oral Solution PEG SCH (08:50)
[2018-11-04] MEDS: Potassium Chloride 40 mEq/30 ml LIQ UD PEG SCH ×2 (09:15→11:07)
[2018-11-04] MEDS: Insulin Reg-LOW-Coverage SC SCH ×3 (09:50→22:49)
[2018-11-04] MEDS: Mupirocin 2% Ointment 15 GM TUBE NS SCH ×2 (09:51→18:43)
[2018-11-04] MEDS: Insulin Human NPH 1 UNITS/0.01 ML SC SCH ×2 (09:58→18:55)
[2018-11-04] MEDS: Enoxaparin 40 mg Syringe SC SCH (09:59)
[2018-11-04] MEDS: Oseltamivir 6 MG/ML PEG SCH (10:02)
[2018-11-04] MEDS: Ascorbic Acid 500 mg/5 ml Liq(50 ml) PEG SCH (10:06)
--- NOTE | 2018-11-04 15:24 | PN ---
DATE: 11/04/2018 LOCATION: The patient is seen in room 565, bed 1. SUBJECTIVE: The patient is seen lying in the bed. The patient is awake, responsive, eyes open to verbal stimuli. The patient is lying in the bed. The patient is on isolation. Overnight nurse's notes were reviewed. The patient stayed comfortable with alert, awake, oriented x1, nonverbal. OBJECTIVE: VITAL SIGNS: T-max 98.1 to 98.7, heart rate 95, 91, 99, blood pressure 157/77, 142/74, 162/80, respiration 18, O2 sat 99%. HEAD: Normocephalic, atraumatic. HEENT: Shows pinkish pale conjunctivae. Anicteric sclerae. No oropharyngeal lesion. No neck rigidity. CHEST: Kyphosis. LUNGS: Shows positive rhonchi, right more than the left. Decreased breath sound at the bases. CARDIOVASCULAR: S1 and S2, regular rhythm. ABDOMEN: Soft. Positive bowel sound, positive gastrostomy. GENITALIA: Male. RECTAL: Deferred. Positive Vega catheter. No palpable hepatosplenomegaly. No organomegaly. EXTREMITIES: Shows positive contractures of the lower extremity. Positive SCDs. Positive contractures of upper extremity. NEUROLOGICAL: Limited as the patient is nonverbal. MUSCULOSKELETAL: Shows a decreased body mass index of 18. GAIT: The patient is bedridden. DIAGNOSTIC DATA: On 11/04/2018, WBC 9.4, hemoglobin/hematocrit 9.3/30.1, platelet 401. Granulocytes and 73% segs. Sodium is down to 139 from 155, potassium is down to 3.5, chloride 107, CO2 of 30, anion gap 5, BUN 22, creatinine 0.6. BUN is down to 22 from 49. GFR is greater than 60, glucose 108, calcium 8.3, phosphorus 3.1, magnesium 2.1. LFTs; AST 63, alk phos 196, albumin 2.3. Urine Legionella is negative. Blood cultures are negative. Sacral decubitus ulceration, Morganella morganii, blood and urine cultures are negative. MRSA nares are positive. The patient received one unit of PRBC. IMPRESSION AND PLAN: 1. Severe sepsis with right lower lobe healthcare-associated possible aspiration pneumonia. 2. High-grade fever. 3. Tachycardia. 4. Leukocytosis with granulocytosis. 5. Hyperchloremic . 6. Lactic acidosis. 7. Tachycardia. 8. Severe advanced dementia and severe advanced Parkinson disease. 9. Right lower lobe healthcare-associated possible aspiration pneumonia. 10. Normocytic anemia with decreasing hemoglobin and hematocrit. 11. Transient lactic acidosis. 12. Hypokalemia. 13. Prerenal kidney injury. 14. Noninsulin-requiring diabetes mellitus. 15. Hyperglycemia. 16. Transaminitis. 17. Mild hypoalbuminemia. 18. . 19. Microscopic hematuria. 20. Methicillin-resistant staphylococcus aureus nares. 21. Sacral decubitus ulceration. 22. Morganella moderate sacral decubitus ulceration. 23. Methicillin-resistant staphylococcus aureus nares positive. 24. Status post packed red blood cell transfusion x1. 25. Persistent right lower lobe pneumonia with air bronchogram and left lower lobe atelectasis. 26. Sinus tachycardia. 27. Feeding dysfunction with gastrostomy tube placement. 28. Possible neurogenic bladder with urinary retention and chronic indwelling Vega catheter. 29. Severe deconditioning and gait dysfunction with bedridden status and functional quadriplegia. 30. History of constipation. 31. Insulin-requiring diabetes mellitus. PLAN: At this time, the patient has been ordered potassium supplementation via the gastrostomy tube. Repeat CMP, LFT, magnesium, phosphorus has been ordered. Repeat CBC has been ordered. Current consultation, Infectious Disease. CURRENT MEDICATIONS: 1. Mucomyst nebulizer treatment 20% 4 mL every 6 hours with Xopenex nebulizer treatment 0.63 mg. 2. Ecotrin 81 mg daily. 3. Bactroban cream to the nares area twice a day for five days 4. NPH insulin 5 units at 07:00 a.m. and NPH insulin 5 units at 06:00 p.m. 5. Regular insulin sliding scale coverage every 6 hours. 6. Lopressor 50 mg every eight hours. 7. Lovenox 40 mg subcu daily. 8. Meropenem 1 g IV every eight hours. 9. Multivitamin liquid 15 mL via the PEG daily. 10. K-Dur, potassium supplementation 40 mEq every 1 hour x2 doses. 11. Protonix 40 mg IV daily. 12. Sinemet 25/250 five times a day. 13. Tamiflu suspension 75 mg twice a day. 14. Tylenol p.o. suppository every six hours p.r.n. 15. Vancomycin 1 g IV every 12 hours. 16. Ascorbic acid 500 mg via PEG daily. 17. Xopenex 0.63 mg every 6 hours. 18. Zofran 4 mg IV every four hours p.r.n. RENO stockings and SCDs, aspiration precautions. Head of the bed at 30 degrees, suction oropharynx has been ordered. The patient's IV antibiotic duration and discontinuation will be as per the Infectious Disease and we are awaiting for the discontinuation of the IV antibiotics to determine the patient's discharge back to the assisted. The patient will be continued to be continued on the gastrostomy tube feeding. The patient's IV fluid has been stopped. The patient has since the patient's electrolytes and sodium is corrected. Overall prognosis is guarded to poor. Code status; DNR/DNI. Dictated and electronically signed, not read. Cameron Quinteros MD
[2018-11-05] MEDS: Levalbuterol 0.63 MG/3 ML Inhal Soln UD IH SCH ×3 (01:43→13:21)
[2018-11-05] MEDS: Acetylcysteine 20% Inhal Soln (4ml) IH SCH ×3 (01:43→13:21)
[2018-11-05] MEDS: Meropenem IV 1 gm in NS 1 GM/50 ML BAG IVPB SCH (05:27)
[2018-11-05] MEDS: Carbidopa/Levodopa 25/250 PEG SCH ×3 (05:27→15:00)
[2018-11-05] MEDS: Vancomycin 1gm in NS 250ml 1 GM/250 ML BAG IVPB SCH (06:16)
[2018-11-05 08:07] VITALS: RESP 18
[2018-11-05 09:15] LABS: BASO # 0.02 K/mm3 (0.0-2.0); BASO % 0.2 % (0.0-3.0); EOS # 0.3 (0.0-0.7); EOS % 2.7 % (1.5-5.0); GRAN # 6.5 (1.4-6.5); GRAN % 68.5 % (50.0-68.0); HEMOGLOBIN 9.4 g/dL (14.0-18.0); LYMPH % 21.2 % (22.0-35.0); MEAN CELL VOLUME 79.8 fl (80.0-105.0); MEAN CORPUSCULAR HEMOGLOBIN 25.3 pg (25.0-35.0); MEAN CORPUSCULAR HGB CONC 31.8 g/dl (31.0-37.0); MEAN PLATELET VOLUME 9.8 fl (7.0-11.0); MONO # 0.7 (0.1-0.6); MONO % 7.4 % (1.0-6.0); RBC 3.71 10^6/uL (3.5-6.1); RED CELL DISTRIBUTION WIDTH 17.5 % (11.5-14.5); WHITE BLOOD COUNT 9.5 10^3/uL (4.5-11.0)
[2018-11-05 09:20] LABS: ALB/GLOB RATIO 0.6 (1.1-1.8); ALBUMIN 2.3 g/dL (3.0-4.8); ALT/SGPT 27 U/L (7-56); AST/SGOT 55 U/L (17-59); BILIRUBIN,DIRECT 0.3 mg/dL (0.0-0.4); BLOOD UREA NITROGEN 25 mg/dL (7-21); CALCIUM 8.3 mg/dL (8.4-10.5); GFR NON-AFRICAN AMERICAN > 60
[2018-11-05] MEDS: Insulin Reg-LOW-Coverage SC SCH ×2 (09:45→17:11)
[2018-11-05] MEDS: Ascorbic Acid 500 mg/5 ml Liq(50 ml) PEG SCH (10:00)
[2018-11-05] MEDS: Mupirocin 2% Ointment 15 GM TUBE NS SCH (10:00)
[2018-11-05] MEDS: Insulin Human NPH 1 UNITS/0.01 ML SC SCH (10:00)
--- NOTE | 2018-11-05 10:27 | PN ---
DATE: 11/05/2018 SUBJECTIVE: The patient is in bed in no acute distress, nontoxic. PHYSICAL EXAMINATION: VITAL SIGNS: Temperature is 98, blood pressure is 140/70, respiratory rate of 18, heart rate of 83. HEENT: Examination of HEENT is unremarkable. NECK: Supple. LUNGS: Have decreased breath sounds. HEART: Normal S1, S2. ABDOMEN: Soft, nontender. LABORATORY EXAMINATION: Reveals a white count of 9.4, hemoglobin of 9. Chemistries reveals a BUN of 22, creatinine of 0.6. Urinalysis is noted and serology and influenza is positive 80 A and B. The urine Legionella is negative and blood cultures are negative. The sacral cultures Morganella morganii subspecies morganii, review of orders reveals the patient to be on meropenem and vancomycin. Dr. Quinteros's note is reviewed from yesterday. ASSESSMENT AND PLAN: An 83-year-old male seen in 565, bed 1, earlier this morning was nonverbal and bed bound, who has severe sepsis with healthcare-associated pneumonia with stage IV draining sacral ulcers and diabetic and swelling Vega catheter, hypertension, Parkinson's and currently on day #7 of meropenem, vancomycin and his fevers are resolved. His white count has resolved. We will discontinue the antibiotics. No further antibiotics for this patient. The patient is at high risk of developing new infections with poor quality of life. We will discontinue the vancomycin and meropenem. Noé López MD
[2018-11-05] MEDS: Enoxaparin 40 mg Syringe SC SCH (11:13)
[2018-11-05] MEDS: Multi Vitamins 15 mL UD Oral Solution PEG SCH (12:00)
[2018-11-05 15:46] VITALS: BP 134/77; PULSE 90; TEMP 97.8; O2SAT 98
--- NOTE | 2018-11-06 08:38 | DS ---
DATE: 11/05/2018 SUBJECTIVE: Overnight nurse's notes were reviewed. No adverse events were documented. The patient is continued on gastrostomy tube feeding. The patient is continued on bedrest. The patient has been arousable to verbal stimuli and tactile stimuli. The patient is lying in the bed in room 561, bed 1. PHYSICAL EXAMINATION: VITAL SIGNS: T-max 98.1, heart rate 83 to 92 to 91, blood pressure 141/72, respirations 20, O2 sat 97%. HEENT: Head, normocephalic, atraumatic. Pinkish pale conjunctivae. Anicteric sclerae. Dry oral mucosa. NECK: No neck rigidity. CHEST: Kyphosis. LUNGS: Examination shows positive crepitations, rhonchi, right more than the left. CARDIOVASCULAR: S1, S2, regular rhythm. No audible murmur, gallop or rub at this time. ABDOMEN: Soft. Positive bowel sound. No palpable hepatosplenomegaly. Positive gastrostomy tube. GENITALIA: Male. Positive Vega catheter. EXTREMITIES: Positive flexion contractures of upper and lower extremities. Positive SCDs noted. MUSCULOSKELETAL: Examination shows decreased muscle mass as per the body mass index. NEUROLOGIC: Examination is limited as the patient is nonverbal secondary to advanced dementia and Parkinson's disease. Gait examination is not tested as the patient is bedridden. LABORATORY DATA: Fingerstick blood sugar 128, 141, 135, 178. DIAGNOSTIC DATA: The patient's diagnostic data from 11/05/2018 is pending, which will be reviewed when available and modifications and interventions will be ordered depending upon the available diagnostic lab data from today. According to the Infectious Disease notes the patient today is probably on the seventh or the last day of IV antibiotic. FINAL IMPRESSION AND DISCHARGE DIAGNOSES: 1. Severe sepsis secondary to healthcare-associated possible right lower lobe aspiration pneumonia, slow resolving. 2. Morganella morganii sacral decubitus ulceration. 3. Questionable and possible healthcare-associated right lower lobe aspiration pneumonia. 4. Severe advanced dementia and Parkinson's disease. 5. Feeding dysfunction with gastrostomy tube placement. 6. Dysarthria with speech dysfunction secondary to advanced dementia and Parkinson's disease. 7. Possible neurogenic bladder with urinary retention and incontinence with chronic indwelling Vega catheter. 8. Severe deconditioning and bedridden status with functional quadriplegia. 9. Upper and lower extremity flexion contractures secondary to advanced Parkinson disease. 10. Sacral decubitus ulceration. 11. History of hypertension. 12. High-grade fever. 13. Tachycardia. 14. Sepsis. 15. History of diabetes mellitus. 16. Insulin-requiring diabetes mellitus. 17. History of hypertension. 18. Status post acute kidney injury and prerenal kidney injury. PLAN: As per the MAR of today, the patient is still on IV meropenem 1 g IV every eight hours and vancomycin 1 g IV every 12 hours as per the orders of Infectious Disease. Once IV antibiotics are stopped by the Infectious Disease consult, the patient will be discharged back to [facility] with continuation of medications as per the updated ambulatory orders. The patient's overall prognosis is guarded to poor, which has been explained to the patient's family and the next of kin, daughter Cristal. The patient's code status is DNR/DNI. If the patient's IV antibiotics are discontinued today by the Infectious Disease, the patient will be considered for discharge back to [facility] for continuation of her [facility]term [facility] at the [facility] which the patient's family has agreed to that the patient will be a long-term care patient at [facility]. The patient's medications, discharge medications and updated ambulatory orders reviewed. The patient will be discharged after IV antibiotics stopped by Infectious Disease. The patient will be discharged on revised and modified updated ambulatory orders. Time spent 45 minutes. Cameron Quinteros MD
== END 2018-11-05 16:51 | DRG 871 ==
LOC: ED 18:03 → ERH 20:13 → 2RNO 10-30 17:09 → 5RNO 11-02 15:04
PROVIDERS: ADMIT Internal Medicine; ATTEND Internal Medicine
PROC: 30233N1 Transfusion of Nonautologous Red Blood Cells into Peripheral Vein, Percutaneous Approach (ICD-10-PCS; principal; 2018-11-02)
DX: A41.9 Sepsis, unspecified organism (principal); J18.1 Lobar pneumonia, unspecified organism; J69.0 Pneumonitis due to inhalation of food and vomit; L89.154 Pressure ulcer of sacral region, stage 4; R53.2 Functional quadriplegia; E87.0 Hyperosmolality and hypernatremia; E44.0 Moderate protein-calorie malnutrition; Z68.1 Body mass index [BMI] 19.9 or less, adult; R47.01 Aphasia; E87.2 Acidosis; J98.11 Atelectasis; D64.9 Anemia, unspecified; R65.20 Severe sepsis without septic shock; E11.65 Type 2 diabetes mellitus with hyperglycemia; G20 Parkinson's disease; F02.80 Dementia in other diseases classified elsewhere, unspecified severity, without behavioral disturbance, psychotic disturbance, mood disturbance, and anxiety; E87.6 Hypokalemia; I10 Essential (primary) hypertension; Z66 Do not resuscitate; E87.8 Other disorders of electrolyte and fluid balance, not elsewhere classified; N31.9 Neuromuscular dysfunction of bladder, unspecified; K57.30 Diverticulosis of large intestine without perforation or abscess without bleeding; R33.8 Other retention of urine; R31.29 Other microscopic hematuria; E88.09 Other disorders of plasma-protein metabolism, not elsewhere classified; Y95 Nosocomial condition; Z79.4 Long term (current) use of insulin; Z74.01 Bed confinement status; Z93.1 Gastrostomy status

== ENCOUNTER 2018-12-06 00:48 | Inpatient (IN) | payer OTHER, MEDICARE ==
[2018-12-06 00:55] VITALS: BMI 18.6
--- NOTE | 2018-12-06 01:17 | ED PDOC ---
Arrival/HPI <Cuauhtemoc Prince - Last Filed: 12/06/18 02:36> - General Historian: EMS EM Caveat: Dementia - History of Present Illness Narrative History of Present Illness (Text): Patient is a 83 yr old M with PMH Hypertension, dementia, parkinson's, sacral decubitus ulcer and pneumonia last month who was [place] [facility] [place] for elevated temperature at the nursing facility. Patient is nonverbal due to severe dementia and is unable to offer any ROS or history. 12 Point ROS could not be obtained due to advanced dementia. patient is resting comfortably and does not appear to be in any distress. 12/06/18 01:14 Time/Duration: Prior to Arrival, 1/2 hour Symptom Onset: Sudden Symptom Course: Improving Activities at Onset: Rest <Sana Neely - Last Filed: 12/06/18 02:37> - General Chief Complaint: Fever Time Seen by Provider: 12/06/18 01:10 Past Medical History - Provider Review Nursing Documentation Reviewed: Yes - Cardiac Hx Hypertension: Yes - Pulmonary Hx Respiratory Disorders: Yes Hx Pneumonia: Yes - Neurological Hx Dementia: Yes Hx Parkinson's Disease: Yes - HEENT Hx HEENT Disorder: Yes Hx Difficulty Chewing: Yes - Renal Hx Renal Disorder: No - Endocrine/Metabolic Hx Diabetes Mellitus Type 2: Yes - Hematological/Oncological Hx Anemia: Yes - Integumentary Hx Dermatological Disorder: Yes Other/Comment: skin breakdown sacrum - Musculoskeletal/Rheumatological Hx Musculoskeletal Disorders: Yes Hx Falls: No Hx Unsteady Gait: Yes Other/Comment: bed bound - Gastrointestinal Hx Gastrointestinal Disorders: No Other/Comment: PEG tube - Genitourinary/Gynecological Hx Genitourinary Disorders: Yes Hx Incontinence: Yes Hx Prostate Problems: Yes (BPH) Other/Comment: inguinal hernia - Psychiatric Hx Psychophysiologic Disorder: No Hx Substance Use: No - Anesthesia Hx Anesthesia: Yes Hx Anesthesia Reactions: No Hx Malignant Hyperthermia: No <Sana Neely - Last Filed: 12/06/18 02:37> Family/Social History - Physician Review Nursing Documentation Reviewed: Yes Family/Social History: Unknown Family HX Smoking Status: Never Smoked Hx Alcohol Use: No Hx Substance Use: No <Sana Neely - Last Filed: 12/06/18 02:37> Allergies/Home Meds <Cuauhtemoc Prince - Last Filed: 12/06/18 02:36> <Sana Neely - Last Filed: 12/06/18 02:37> Allergies/Adverse Reactions: Allergies No Known Allergies Allergy (Verified 12/06/18 00:53) Home Medications: Home Meds Medication Instructions Recorded Confirmed Ascorbic Acid [Vitamin C] 5 ml PEG DAILY 10/29/18 12/06/18 Insulin Human Regular-LOW [HumuLIN 0 units SC Q6H 10/29/18 12/06/18 R LOW] Pantoprazole [Protonix Inj] 40 mg PEG DAILY 10/29/18 12/06/18 traMADol [Ultram] 1 tab PEG Q12H PRN 10/29/18 12/06/18 Review of Systems - Review of Systems Systems not reviewed;Unavailable: Dementia <Sana eNely - Last Filed: 12/06/18 02:37> Physical Exam Vital Signs Temp Pulse Resp BP 12/06/18 01:10 99.7 F H 96 H 25 H 128/90 <Cuauhtemoc Prince - Last Filed: 12/06/18 02:36> - Physical Exam Physical Exam Limitations: Altered Mental Status (2/2 dementia) Vital Signs Reviewed: Yes Temperature: Afebrile (99.6 rectal temp) Blood Pressure: Normal Pulse: Tachycardic Respiratory Rate: Tachypneic Appearance: Positive for: Non-Toxic, Comfortable, Cachectic Pain Distress: None Mental Status: Positive for: other (severe dementia) - Systems Exam Head: Present: Atraumatic, Normocephalic Mouth: Present: Dry Respiratory/Chest: Present: Clear to Auscultation, Good Air Exchange. No: Respiratory Distress, Accessory Muscle Use, Wheezes, Rales, Rhonchi Cardiovascular: Present: Normal S1, S2, Tachycardic. No: Murmurs Abdomen: No: Tenderness, Distention, Peritoneal Signs, Guarding Genitourinary Male: Present: Other (indwelling malik in place urine in bag clear yellow) Upper Extremity: Present: Normal Inspection, NORMAL PULSES. No: Cyanosis, Edema Lower Extremity: Present: Normal Inspection, NORMAL PULSES. No: Edema, CALF TENDERNESS Neurological: No: Memory Normal (severe dementia) Skin: Present: Warm, Dry, Normal Color, Other (Stage IV sacral Decubitus Ulcer (chronic)). No: Rashes Psychiatric: Present: Other (severe dementia, minimally responsive to verbal and tactile stimuli). No: Oriented x 3 <NeelySana parker - Last Filed: 12/06/18 02:37> Medical Decision Making ED Course and Treatment: Impression: Pt seen and evaluated with resident. Aware and agree with HPI, clinical findings, plan, and management. Pt, whose past medical history includes hypertension, dementia, Parkinson's disease, sacral decubitus, and pneumonia, [facility] from [facility]. Plan: -- EKG -- Chest X-ray -- Labs, VBG, blood cultures -- Urinalysis, urine cultures -- IV fluids -- Reassess and disposition 12/06/18 02:[address] Quinteros, who is aware and agrees with plan. Accepts pt in to his service. Pt will be admitted to telemetry for pneumonia. Requests Dr. López on consult. residential treatment specialist notified. - Lab Interpretations Lab Results: Total Bilirubin 0.5 mg/dL (0.2-1.3) 12/06/18 01:20 AST 37 U/L (17-59) 12/06/18 01:20 ALT 18 U/L (7-56) 12/06/18 01:20 Alkaline Phosphatase 112 U/L (38-126) 12/06/18 01:20 Total Protein 7.8 g/dL (5.8-8.3) 12/06/18 01:20 Albumin 3.3 g/dL (3.0-4.8) 12/06/18 01:20 Globulin 4.5 gm/dL 12/06/18 01:20 Albumin/Globulin Ratio 0.7 (1.1-1.8) L 12/06/18 01:20 Urine Color Yellow (YELLOW) 12/06/18 01:20 Urine Appearance Sl cloudy (CLEAR) 12/06/18 01:20 Urine pH 8.5 (4.7-8.0) 12/06/18 01:20 Ur Specific [place] 1.010 (1.005-1.035) 12/06/18 01:20 Urine Protein Negative mg/dL (<30 mg/dL) 12/06/18 01:20 Urine Glucose (UA) Negative mg/dL (NEGATIVE) 12/06/18 01:20 Urine Ketones Negative mg/dL (NEGATIVE) 12/06/18 01:20 Urine Blood Small (NEGATIVE) H 12/06/18 01:20 Urine Nitrate Negative (NEGATIVE) 12/06/18 01:20 Urine Bilirubin Negative (NEGATIVE) 12/06/18 01:20 Urine Urobilinogen 0.2 E.U./dL (<1 E.U./dL) 12/06/18 01:20 Ur Leukocyte Esterase Small Vi/uL (NEGATIVE) H 12/06/18 01:20 - RAD Interpretation Radiology Orders: 12/06/18 01:09 CXR [CHEST PORTABLE] [RAD] Stat - Medication Orders Current Medication Orders: Sodium Chloride (Sodium Chloride 0.9%) 1,000 mls @ 999 mls/hr IV .Q1H1M STA Stop: 12/06/18 02:48 <Cuauhtemoc Prince - Last Filed: 12/06/18 02:36> ED Course and Treatment: Impression: 83 yr old male with recent admission for pneumonia presenting with fever of unknown origin Plan: CBC CMP Urinalysis Blood cx Urine cx VBG EKG CXR IVF reassess and dispo 12/06/18 01:22 CXR appears to show Left lower lobe infiltrate, possible pneumonia WBC count elevated, abx ordered 12/06/18 01:57 EKG normal sinus no ST changes 12/06/18 02:[address] Quinteros regarding pt admission, requests Dr. López for ID on consult, agreed to admit patient to his service, spoke with resident regarding patient admission, Patient will be admitteed to telemetry 12/06/18 02:33 - Lab Interpretations Interpretation: Abnormal lab values - RAD Interpretation Narrative RAD Interpretations (Text): CXR: appears to have left lower lobe patchy infiltrate, my read, reviewed and discussed with Dr. Prince who agrees 12/06/18 02:15 Radiology Orders: 12/06/18 01:09 CXR [CHEST PORTABLE] [RAD] Stat - EKG Interpretation EKG Interpretation (Text): NSR, 99 BPM, no ST Changes, read by Dr. Prince 12/06/18 02:16 Interpreted by ED Physician: Yes Type: 12 lead EKG <Sana Neely - Last Filed: 12/06/18 02:37> - PA / JACK MACHINE OPERATOR / Resident Statement / has reviewed & agrees with the documentation as recorded. / has examined the patient and agrees with the treatment plan. <Cuauhtemoc Prince - Last Filed: 12/06/18 02:36> Disposition/Present on Arrival - Present on Arrival Any Indicators Present on Arrival: No History of DVT/PE: No History of Uncontrolled Diabetes: No Urinary Catheter: Yes History of Decub. Ulcer: Yes History Surgical Site Infection Following: None - Disposition Have Diagnosis and Disposition been Completed?: Yes Disposition Time: 02:27 Patient Plan: Admission <Cuauhtemoc Prince - Last Filed: 12/06/18 02:36> - Present on Arrival Any Indicators Present on Arrival: Yes History of DVT/PE: No History of Uncontrolled Diabetes: No Urinary Catheter: Yes History of Decub. Ulcer: Yes (sacral stage IV) History Surgical Site Infection Following: None - Disposition Have Diagnosis and Disposition been Completed?: Yes Patient Plan: Admission <Sana Neely - Last Filed: 12/06/18 02:37> - Disposition Diagnosis: Pneumonia Disposition: HOSPITALIZED Patient Problems: Current Active Problems Problem Status Onset Pneumonia Acute Condition: STABLE Forms: [employer] (Mongolian)
[2018-12-06 01:39] LABS: VENOUS BLOOD GAS BASE EXCESS 5.8 mmol/L (0.0-2.0); VENOUS BLOOD GAS PO2 128 mm/Hg (30-55); VENOUS BLOOD PH 7.43 (7.32-7.43)
[2018-12-06 01:40] LABS: BASO # 0.02 K/mm3 (0.0-2.0); BASO % 0.1 % (0.0-3.0); EOS # 0.1 (0.0-0.7); EOS % 0.5 % (1.5-5.0); GRAN # 17.81 (1.4-6.5); GRAN % 80.6 % (50.0-68.0); HEMOGLOBIN 10.4 g/dL (14.0-18.0); LYMPH # 2.7 (1.2-3.4); LYMPH % 12.2 % (22.0-35.0); MEAN CORPUSCULAR HEMOGLOBIN 24.8 pg (25.0-35.0); MEAN CORPUSCULAR HGB CONC 31.4 g/dl (31.0-37.0); MEAN PLATELET VOLUME 8.5 fl (7.0-11.0); MONO # 1.5 (0.1-0.6); MONO % 6.6 % (1.0-6.0); PH,URINE 8.5 (4.7-8.0); RBC 4.19 10^6/uL (3.5-6.1); RED CELL DISTRIBUTION WIDTH 17.8 % (11.5-14.5); URINE APPEARANCE SL CLOUDY (CLEAR); URINE BILIRUBIN NEGATIVE (NEGATIVE); URINE BLOOD SMALL (NEGATIVE); URINE COLOR YELLOW (YELLOW); URINE GLUCOSE (UA) NEGATIVE (NEGATIVE); URINE LEUKOCYTE ESTERASE SMALL Leu/uL (NEGATIVE); URINE PROTEIN NEGATIVE mg/dL (<30 mg/dL); URINE UROBILINOGEN 0.2 E.U./dL (<1 E.U./dL); WHITE BLOOD COUNT 22.1 10^3/uL (4.5-11.0)
[2018-12-06 01:48] LABS: ALB/GLOB RATIO 0.7 (1.1-1.8); ALBUMIN 3.3 g/dL (3.0-4.8); ALT/SGPT 18 U/L (7-56); AST/SGOT 37 U/L (17-59); BLOOD UREA NITROGEN 21 mg/dL (7-21); CALCIUM 9.3 mg/dL (8.4-10.5); GFR NON-AFRICAN AMERICAN > 60
[2018-12-06] MEDS ORDERED: Sodium Chloride 0.9% 1,000 ML IV STA ×3 (01:48→03:21)
[2018-12-06] MEDS ORDERED: Vancomycin 1gm in NS 250ml 1 GM/250 ML BAG IVPB STA (01:53)
[2018-12-06] MEDS ORDERED: Piperacillin/Tazobact 3.375 gm 100 ML IVPB STA (01:53)
[2018-12-06 01:54] LABS: URINE BACTERIA MOD /hpf; URINE EPITHELIAL CELLS 0 - 2 /hpf (0-5)
[2018-12-06 01:55] LABS: URINE TRIPLE PHOSPHATE CRYSTAL FEW /hpf
--- NOTE | 2018-12-06 03:28 | CP.PCM.HP ---
<Ricardo Martinez - Last Filed: 12/06/18 03:05> History of Present Illness - History of Present Illness History of Present Illness: Ricardo Martinez, PGY-1, Internal Medicine History and Physical for Dr. Quinteros 83 year old male with past medical history of hypertension, dementia, Parkinson's disease, sacral decubitus ulcer stage IV, pneumonia, cholelithiasis, and diabetes mellitus type II presents from [facility] for fever of 101-102 degrees F rectally. Patient was administered tylenol suppository and subsequently, his fever reduced to 98.9. Patient reports to feeling chills prior to having temperature checked when he had his bed sheet off, but when his bed sheet was placed back on him, he no longer complained of chills. Patient was in no acute distress, had no other symptoms or complaints, and was at his baseline mental status, as per daughter. At bedside, patient is pleasantly demented and resting comfortably in bed with no acute distress. 12-point ROS could not be obtained due to patient's mental status. PMH: as stated above PSH: G tube placed on 08/07/18 FMHx: brother had diabetes mellitus type II SHx: resides at [facility], moved from [place] Allergies: NKDA PMD: Dr. Quinteros [place] Rx: reviewed MAR Information obtained from prior medical records. Present on Admission - Present on Admission Any Indicators Present on Admission: No Review of Systems - Review of Systems Systems not reviewed;Unavailable: Altered Mental Status Past Patient History - Past Medical History & Family History Past Medical History?: Yes - Past Social History Smoking Status: Never Smoked - CARDIAC Hx Hypertension: Yes - PULMONARY Hx Respiratory Disorders: Yes Hx Pneumonia: Yes - NEUROLOGICAL Hx Dementia: Yes Hx Parkinson's Disease: Yes - HEENT Hx HEENT Problems: Yes Hx Difficulty Chewing: Yes - RENAL Hx Chronic Kidney Disease: No - ENDOCRINE/METABOLIC Hx Diabetes Mellitus Type 2: Yes - HEMATOLOGICAL/ONCOLOGICAL Hx Anemia: Yes - INTEGUMENTARY Hx Dermatological Problems: Yes Other/Comment: skin breakdown sacrum - MUSCULOSKELETAL/RHEUMATOLOGICAL Hx Musculoskeletal Disorders: Yes Hx Falls: No Hx Unsteady Gait: Yes Other/Comment: bed bound - GASTROINTESTINAL Hx Gastrointestinal Disorders: No Other/Comment: PEG tube - GENITOURINARY/GYNECOLOGICAL Hx Genitourinary Disorders: Yes Hx Incontinence: Yes Hx Prostate Problems: Yes (BPH) Other/Comment: inguinal hernia - PSYCHIATRIC Hx Psychophysiologic Disorder: No Hx Substance Use: No - SURGICAL HISTORY Hx Surgeries: No - ANESTHESIA Hx Anesthesia: Yes Hx Anesthesia Reactions: No Hx Malignant Hyperthermia: No Meds Allergies/Adverse Reactions: Allergies Allergy/AdvReac Type Severity Reaction Status Date / Time No Known Allergies Allergy Verified 12/06/18 00:53 Physical Exam - Constitutional Appears: Well, Non-toxic, No Acute Distress - Head Exam Head Exam: ATRAUMATIC, NORMAL INSPECTION, NORMOCEPHALIC - Eye Exam Eye Exam: EOMI, PERRL - ENT Exam ENT Exam: Mucous Membranes Moist - Neck Exam Additional comments: unable to assess - Respiratory Exam Respiratory Exam: NORMAL BREATHING PATTERN. absent: Rales, Rhonchi, Wheezes Additional comments: decreased breath sounds - Cardiovascular Exam Cardiovascular Exam: Tachycardia, REGULAR RHYTHM - GI/Abdominal Exam GI & Abdominal Exam: Normal Bowel Sounds, Soft. absent: Tenderness - Extremities Exam Extremities exam: Positive for: normal inspection Additional comments: unable to assess ROM due to patient's mental status - Back Exam Additional comments: stage 4 sacral decubitus ulcer on right side of sacrum - Neurological Exam Neurological exam: Alert, CN II-XII Intact (grossly) Additional comments: AAOx1, pleasantly demented - Skin Additional comments: Sacral decubitus ulcer stage IV present on right buttocks. No erythema, swelling around the area. Patient reports tenderness and discharge present. Results - Vital Signs Recent Vital Signs: Last Vital Signs Temp 99.7 F H 12/06/18 01:10 Pulse 102 H 12/06/18 02:20 Resp 20 12/06/18 02:20 BP 154/81 H 12/06/18 02:20 Pulse Ox 100 12/06/18 02:20 - Labs Result Diagrams: 12/06/18 01:20 12/06/18 01:20 Labs: Laboratory Results - last 24 hr 12/06/18 12/06/18 12/06/18 01:20 01:20 01:20 WBC 22.1 H D RBC 4.19 Hgb 10.4 L Hct 33.1 L MCV 79.0 L MCH 24.8 L MCHC 31.4 RDW 17.8 H Plt Count 479 H MPV 8.5 Gran % 80.6 H Lymph % (Auto) 12.2 L [place] % (Auto) 6.6 H Eos % (Auto) 0.5 L Baso % (Auto) 0.1 Gran # 17.81 H Lymph # (Auto) 2.7 [place] # (Auto) 1.5 H Eos # (Auto) 0.1 Baso # (Auto) 0.02 pO2 VBG pH VBG pCO2 VBG HCO3 VBG Total CO2 VBG O2 Sat (Calc) VBG Base Excess VBG Potassium Sodium 134 Chloride 99 Glucose Lactate FiO2 Potassium 4.2 Carbon Dioxide 30 Anion Gap 10 BUN 21 Creatinine 0.6 L Est GFR ( Amer) > 60 Est GFR (Non-Af Amer) > 60 Random Glucose 121 H Calcium 9.3 Phosphorus 3.8 Magnesium 1.9 Total Bilirubin 0.5 AST 37 ALT 18 Alkaline Phosphatase 112 Total Protein 7.8 Albumin 3.3 Globulin 4.5 Albumin/Globulin Ratio 0.7 L Venous Blood Potassium Urine Color Yellow Urine Appearance Sl cloudy Urine pH 8.5 Ur Specific [place] 1.010 Urine Protein Negative Urine Glucose (UA) Negative Urine Ketones Negative Urine Blood Small H Urine Nitrate Negative Urine Bilirubin Negative Urine Urobilinogen 0.2 Ur Leukocyte Esterase Small H Urine RBC 1 - 3 H Urine WBC 1 - 3 Ur Epithelial Cells 0 - 2 Triple Phos Crystals Few Urine Bacteria Mod 12/06/18 01:20 WBC RBC Hgb Hct MCV MCH MCHC RDW Plt Count MPV Gran % Lymph % (Auto) [place] % (Auto) Eos % (Auto) Baso % (Auto) Gran # Lymph # (Auto) [place] # (Auto) Eos # (Auto) Baso # (Auto) pO2 128 H VBG pH 7.43 VBG pCO2 47.0 VBG HCO3 31.2 H VBG Total CO2 32.6 H VBG O2 Sat (Calc) 100.1 H VBG Base Excess 5.8 H VBG Potassium 4.0 Sodium 133.0 Chloride 99.0 Glucose 124 H Lactate 1.3 FiO2 21.0 Potassium Carbon Dioxide Anion Gap BUN Creatinine Est GFR ( Amer) Est GFR (Non-Af Amer) Random Glucose Calcium Phosphorus Magnesium Total Bilirubin AST ALT Alkaline Phosphatase Total Protein Albumin Globulin Albumin/Globulin Ratio Venous Blood Potassium 4.0 Urine Color Urine Appearance Urine pH Ur Specific [place] Urine Protein Urine Glucose (UA) Urine Ketones Urine Blood Urine Nitrate Urine Bilirubin Urine Urobilinogen Ur Leukocyte Esterase Urine RBC Urine WBC Ur Epithelial Cells Triple Phos Crystals Urine Bacteria Assessment & Plan - Assessment and Plan (Free Text) Assessment: 83 year old male with past medical history of hypertension, dementia, Parkinson's disease, sacral decubitus ulcer stage IV, pneumonia, cholelithiasis, and diabetes mellitus type II presents from [facility] for fever of 101-102 degrees F rectally. CXR shows left middle to lower patchy infiltrate. Plan: Febrile 2/2 to pneumonia vs. UTI Patient [place] [facility] [place] -Patient satisfies SIRS criteria and has a likely source of infection. Possible sepsis -CXR shows left middle to lower patchy infiltrate. -UA: small blood, small LE, negative nitrite, 1-3 RBC, 1-3 WBC, 0-2 epithelial cells, moderate bacteria -Follow up blood culture, urine culture, procalcitonin -Lactate unremarkable -Vancomycin and merrem for treatment of possible HAP -NS at 100cc/hr -Tylenol PRN for fever -Xopenex for shortness of breath. -Dr. López, ID, consulted for recommendations. Sacral Decubitus Ulcer stage IV -Wound care consulted -Wound culture, blood culture -Cannot rule out sacral decubitus ulcer as site of patient's current infection -Tramadol PRN for pain. -Dr. López, ID, consulted for recommendations. History of hypertension -Last blood pressure was 124/55 -Continue home clonidine patch, metoprolol tartrate, nitroglycerin History of Parkinson's Disease -Continue with home carbidopa and levodopa for Parkinson's History of diabetes mellitus type II -Random glucose: 121 -Last HgbA1c in 07/2018 was 6.4 -Low dose sliding scale insulin ordered GI prophylaxis: protonix 40 mg daily DVT prophylaxis: SCD Patient plan discussed with Dr. Quinteros - Date & Time Date: 12/06/18 Time: 03:31 <Cameron Quinteros - Last Filed: 12/16/18 16:01> Results - Vital Signs Recent Vital Signs: Last Vital Signs Temp 98.2 F 12/15/18 12:00 Pulse 82 12/15/18 12:00 Resp 20 12/15/18 12:00 BP 143/70 12/15/18 12:00 Pulse Ox 100 12/15/18 12:00 - Labs Result Diagrams: 12/12/18 08:00 12/12/18 08:00 Attending/Attestation - Attestation I have personally seen and examined this patient.: Yes I have fully participated in the care of the patient.: Yes I have reviewed all pertinent clinical information: Yes Notes (Text): Plese see/read my dictated notes.
[2018-12-06] MEDS ORDERED: MEROPENEM 500 MG in NS 500 MG/50 ML BAG IVPB SCH (06:00)
[2018-12-06] MEDS: Nitroglycerin 2% Ointment Foilpak UD TOP SCH ×3 (06:05→17:46)
[2018-12-06] MEDS: Carbidopa/Levodopa 25/250 PEG SCH ×5 (06:07→21:59)
[2018-12-06] MEDS: Levalbuterol 0.63 MG/3 ML Inhal Soln UD IH SCH ×3 (07:27→19:52)
[2018-12-06] MEDS: Acetylcysteine 20% Inhal Soln (4ml) IH SCH ×3 (07:27→19:52)
[2018-12-06] MEDS: Meropenem IV 1 gm in NS 1 GM/50 ML BAG IVPB SCH ×3 (10:04→21:56)
[2018-12-06] MEDS: Vancomycin 1gm in NS 250ml 1 GM/250 ML BAG IVPB SCH ×2 (10:05→21:59)
[2018-12-06] MEDS: Multi Vitamins 15 mL UD Oral Solution PEG SCH (10:06)
[2018-12-06] MEDS: Mupirocin 2% Ointment 15 GM TUBE NS SCH ×2 (10:08→18:00)
--- NOTE | 2018-12-06 10:20 | RAD ---
Date of service: 12/06/2018 HISTORY: Pneumonia suspected. COMPARISON: 11/03/2018. FINDINGS: LUNGS: Substantial improvement in perihilar, right lower lobe infiltrate compared to the prior study. Involving left lower lobe infiltrate a new finding. PLEURA: No significant pleural effusion identified, no pneumothorax apparent. CARDIOVASCULAR: No atherosclerotic calcification present No radiographic findings to suggest acute or significant cardiovascular disease. OSSEOUS STRUCTURES: No significant abnormalities. VISUALIZED UPPER ABDOMEN: Normal. OTHER FINDINGS: None. IMPRESSION: Resolution right lower lobe infiltrate. New left lower lobe infiltrate.
[2018-12-06] MEDS: Enoxaparin 40 mg Syringe SC SCH (11:00)
[2018-12-06] MEDS: Ascorbic Acid 500 mg/5 ml Liq(50 ml) PEG SCH (11:05)
[2018-12-06] MEDS: Insulin Reg-LOW-Coverage SC SCH ×2 (12:00→17:45)
[2018-12-06] MEDS: Lactated Ringer's 1,000 ML IV SCH ×2 (12:22→20:45)
--- NOTE | 2018-12-06 18:34 | CON ---
DATE: 12/06/2018 LOCATION: The patient is seen in room 568, bed 1. CHIEF COMPLIANT: Weakness times several days. HISTORY OF PRESENT ILLNESS: This is an 83-year-old male, who has a history of dementia, Parkinson's, sacral decubitus, diabetes mellitus, BPH, who is admitted through the emergency room. At the care home, he had a fever and admitted for further workup. REVIEW OF SYSTEMS: Reveals there has been fever, shortness of breath, and mild cough. No abdominal pain. No diarrhea or constipation. No bright red blood per rectum. PAST MEDICAL HISTORY: Significant for recent hospitalization. The patient is admitted from a care home with diabetes mellitus, BPH, chronic Vega catheter, hypertension, Parkinson's disease. PAST SURGICAL HISTORY: Significant for a PEG tube placement. ALLERGIES: THE PATIENT HAS NO KNOWN ALLERGIES. MEDICATIONS: Medications at the care home are reviewed and include tramadol, clonidine, Protonix, insulin. PHYSICAL EXAMINATION: GENERAL: The patient is in bed, in no acute distress. VITAL SINGS: Temperature of 99.7. In the emergency room with a heart rate of 102, respiratory rate of 25, blood pressure is 169/50. HEENT: Examination of HEENT is unremarkable. NECK: Supple. LUNGS: Have decreased breath sounds. HEART: Normal S1, S2. ABDOMEN: Soft, nontender. LABORATORY DATA: Laboratory examination reveals the patient's white count is 22,000, hemoglobin of 10, and platelets of 479. Chemistries reveal a BUN of 21, creatinine of 0.6. Urinalysis is noted and radiologically the patient has a chest x-ray. The official report is not available. Reviewing the chest x-ray appears to have infiltrates bilaterally, and history and physical examination by Dr. Ricardo Martinez is reviewed. The patient also has stage 4 decubitus ulcer. Microbiology from previous admissions, review of the sacral culture did have Morganella morganii relatively sensitive organism and in August of last year, the patient had ESBL Klebsiella, sacral ulcer and Kathya. The patient also had Kathya in the urine, had Pseudomonas aeruginosa in the blood in July. ASSESSMENT AND PLAN: This is an 83-year-old male, care home patient with sepsis, with bilateral healthcare-associated pneumonia, and infected sacral ulcer. We will treat the patient with vancomycin, meropenem, doxycycline, pending pancultures, blood, urine, wound, sputum, MRSA screen, procalcitonin, urine for Legionella antigen, wound cultures, blood cultures, urine cultures. We will adjust the meropenem. The patient's renal function, creatinine of 0.6. We will give 1 g every 8 hours of meropenem and vancomycin 1 g every 12 hours. Review of the renal function from the past reveals the patient's creatinine has been normal, although in 2018 creatinine had gone up to 3. We will follow the creatinine carefully with the vancomycin. Unable to use Zyvox because of tramadol, and we will add doxycycline through the PEG tube. We will follow with you. Noé López MD
[2018-12-06] MEDS ORDERED: Vancomycin 1gm in NS 250ml 1 GM/250 ML BAG IVPB SCH (22:00)
--- NOTE | 2018-12-06 22:15 | CARD ---
APPROVED REPORT Date of service: 12/06/2018 EKG Measurement Heart [id number] <Conclusion> Normal sinus rhythm Normal ECG
[2018-12-07] MEDS: Nitroglycerin 2% Ointment Foilpak UD TOP SCH ×4 (00:30→18:00)
[2018-12-07] MEDS: Insulin Reg-LOW-Coverage SC SCH ×4 (00:58→19:11)
[2018-12-07] MEDS: Levalbuterol 0.63 MG/3 ML Inhal Soln UD IH SCH ×4 (02:35→20:55)
[2018-12-07] MEDS: Acetylcysteine 20% Inhal Soln (4ml) IH SCH ×4 (02:35→20:55)
[2018-12-07] MEDS: Meropenem IV 1 gm in NS 1 GM/50 ML BAG IVPB SCH ×3 (05:56→22:52)
[2018-12-07] MEDS: Carbidopa/Levodopa 25/250 PEG SCH ×5 (05:57→21:18)
[2018-12-07 07:02] LABS: BASO # 0.03 K/mm3 (0.0-2.0); BASO % 0.2 % (0.0-3.0); EOS # 0.7 (0.0-0.7); EOS % 5.1 % (1.5-5.0); GRAN # 9.44 (1.4-6.5); GRAN % 69.7 % (50.0-68.0); HEMOGLOBIN 8.5 g/dL (14.0-18.0); LYMPH # 2.3 (1.2-3.4); MEAN CELL VOLUME 80.4 fl (80.0-105.0); MEAN CORPUSCULAR HEMOGLOBIN 24.1 pg (25.0-35.0); MEAN PLATELET VOLUME 8.8 fl (7.0-11.0); MONO # 1.1 (0.1-0.6); RBC 3.52 10^6/uL (3.5-6.1); WHITE BLOOD COUNT 13.6 10^3/uL (4.5-11.0)
[2018-12-07 07:22] LABS: ALB/GLOB RATIO 0.7 (1.1-1.8); ALBUMIN 2.7 g/dL (3.0-4.8); ALT/SGPT 13 U/L (7-56); AST/SGOT 33 U/L (17-59); BILIRUBIN,DIRECT 0.3 mg/dL (0.0-0.4); BLOOD UREA NITROGEN 13 mg/dL (7-21); CALCIUM 9.2 mg/dL (8.4-10.5); GFR NON-AFRICAN AMERICAN > 60
--- NOTE | 2018-12-07 08:51 | HP ---
DATE OF EXAM: 12/06/2018 HISTORY OF PRESENT ILLNESS: The patient is an 83-year-old male transferred from [facility] for high-grade fever of greater than 101 with abnormal chest x-ray showing new infiltrate. The patient was transferred to [facility] emergency room. The patient's was given Tylenol in the [facility]. The patient's stat lab was sent and a stat chest x-ray result came back right away, which shows multiple new infiltrates. The patient was transferred to [facility] after emergency room for evaluation. The patient's vital signs, diagnostic data, all imaging and diagnostic report reviewed. Please refer to the detailed history and physical examination by the medical physicist. IMPRESSION: 1. High-grade fever. 2. Possible sepsis versus systemic inflammatory response syndrome. 3. Tachycardia. 4. Tachypnea. 5. Leukocytosis with granulocytosis. 6. Normocytic anemia. 7. Possible sepsis with multilobar bilateral aspiration pneumonia. 8. Ggo-aszhljq-dmqqxcqek diabetes mellitus. 9. Microscopic hematuria, pyuria, bacteriuria and triple phosphate crystals. 10. Severe advanced dementia. 11. Severe advanced Parkinson's disease. 12. History of recurrent sepsis, pneumonia and urinary tract infection. 13. Sacral decubitus ulceration. 14. Feeding dysfunction with gastrostomy tube placement. 15. Speech dysfunction. 16. Multilobar bilateral possible aspiration pneumonia with a new left lower lobe pneumonia. 17. Sinus tachycardia. 18. Sepsis with pneumonia. 19. Feeding dysfunction. 20. Possible functional quadriplegia with bedridden status and severe gait dysfunction. 21. Severe advanced dementia. 22. Severe advanced Parkinson's disease. 23. History of hypertension. 24. Insulin-requiring diabetes mellitus. 25. History of tachycardia. 26. Chronic pain syndrome. 27. History of recurrent sepsis and aspiration pneumonia. 28. History of sacral decubitus ulceration, history of recurrent aspiration pneumonia. 29. History of feeding dysfunction. 30. History of dysarthria, speech dysfunction. 31. History of neurogenic bladder with urinary retention incontinence and chronic indwelling Vega catheter placement. 32. Upper and lower extremity flexion contractures. 33. History of methicillin-resistant Staphylococcus aureus nares. 34. Possible functional quadriplegia with severe deconditioning, gait dysfunction, bedridden status. 35. History of hypernatremia. 36. History of malnutrition and hypoalbuminemia. 37. Recurrent sacral decubitus ulceration, recurrent aspiration pneumonia. 38. History of prostatic hypertrophy, history of gait dysfunction. PLAN: At this time, the patient is to be admitted to [facility]. The patient has been ordered serial labs. Procalcitonin level ordered. Repeat CMP, CBC, magnesium, phosphorus ordered. Blood urine cultures, sputum cultures, wound cultures, MRSA screen ordered. Current consultation, Infectious Disease. Legionella urine titers ordered. Current medications, Mucomyst nebulizer 20% with Xopenex nebulizer 0.63 mg every 6 hours, Ecotrin 81 mg via PEG daily, Bactroban cream to the affected area twice a day, clonidine 0.1 mg patch weekly, doxycycline 100 mg via PEG every 12, regular insulin sliding scale coverage, lactate Ringer's 100 mL an hour, Lopressor 50 mg every 8, Lovenox 40 mg subcutaneously daily, meropenem 1 g IV every 8, multivitamin liquid via PEG daily, nitro paste 1 inch every 6 hours, Protonix 40 mg IV daily, Remeron 15 mg via PEG at bedtime, Sinemet 25/250 1 tablet via PEG five times a day. The patient received 2 liters of IV fluid normal saline in the ER, Tylenol p.o. suppository every 6 p.r.n., Ultram 50 mg via the PEG tube every 12 p.r.n., vancomycin 1 g IV every 12, ascorbic acid 500 mg via PEG daily, Xopenex nebulizer, Zofran 4 IV every 4 p.r.n. The patient received Zosyn 3.375 in the emergency room. The patient received vancomycin in the emergency room. The patient is started on meropenem and vancomycin by Infectious Disease, oxygen via nasal cannula, RENO stockings, SCDs, head of the bed at 30 degrees, specialty mattress has been ordered. At present, the patient's overall prognosis is guarded to poor. CODE STATUS: DNR/DNI. The patient's overall prognosis is guarded to poor which the patient's family has been explained on multiple occasions during the previous hospitalization and office visit, which they acknowledged understand. At the at this time, the patient is admitted to [facility]. The patient's further management will refer upon the patient's clinical condition, hemodynamic status and as per the patient response to therapeutic intervention, as per the patient's diagnostic test results and as per recommendation by all the physician involved in the care of the patient. Dictated and electronically signed, not read. Cameron Quinteros MD
[2018-12-07] MEDS ORDERED: Vancomycin 1gm in NS 250ml 1 GM/250 ML BAG IVPB SCH (10:00)
[2018-12-07] MEDS: Enoxaparin 40 mg Syringe SC SCH (10:46)
[2018-12-07] MEDS: Ascorbic Acid 500 mg/5 ml Liq(50 ml) PEG SCH (10:47)
[2018-12-07] MEDS: Mupirocin 2% Ointment 15 GM TUBE NS SCH ×2 (10:48→19:09)
[2018-12-07] MEDS: Multi Vitamins 15 mL UD Oral Solution PEG SCH (10:49)
[2018-12-07] MEDS: Vancomycin 1gm in NS 250ml 1 GM/250 ML BAG IVPB SCH ×2 (11:00→20:50)
--- NOTE | 2018-12-07 11:10 | PN ---
DATE: 12/07/2018 LOCATION: The patient is in room 568, bed 1. SUBJECTIVE: The patient is seen lying in the bed. The last 24 hours nurse's notes were reviewed. The patient had episodic agitation and attempted to pull out IVs and gastrostomy tube. The patient required soft restraints. After that, the patient stayed calm. After that, no further adverse events were reported or documented. OBJECTIVE: VITAL SIGNS: T-max 97.7, pulse 76, blood pressure 135/59, respirations 18, O2 sat 100%. HEENT: Head examination normocephalic, atraumatic. HEENT examination shows pinkish pale conjunctivae. Dry oral mucosa. NECK: No neck rigidity. CHEST: Kyphosis. LUNGS: Shows positive rhonchi, occasional creps bilaterally left bilaterally, left more than the right. CARDIOVASCULAR: S1, S2, regular rhythm. Questionable soft systolic murmur left sternal border, right second intercostal space, left second intercostal space. ABDOMEN: Soft. Positive bowel sound, positive gastrostomy tube. GENITALIA: Male. Positive Vega catheter. EXTREMITIES: Shows no pitting edema, no calf tenderness, no Corinna's signs. Positive Multi Podus boot noted. MUSCULOSKELETAL: Shows a decreased muscle mass. NEUROLOGIC: The patient is lethargic, nonverbal and mostly lying in the bed. Cranial nerves II-XII limited. Gait examination is not tested. VASCULAR: Palpable pulses. DIAGNOSTICS: 12/07 procalcitonin level is 5.13. Fingerstick blood sugar 188, 168, 147, 159. WBC 13.6, hemoglobin/hematocrit has dropped to 8.5, 28.3, platelet 432. Sodium 140, potassium 3.9, chloride 110, CO2 of 29, BUN 13, creatinine 0.5, glucose 114, calcium 9.2, phosphorus 3.3, magnesium 1.9. LFTs are okay, albumin is 2.7. Blood cultures negative. Urinalysis shows blood and bacteria. IMPRESSION AND PLAN: 1. Sepsis with multilobar bilateral healthcare-associated pneumonia. 2. Sacral decubitus ulceration. 3. Hyperprocalcitoninemia. 4. Insulin-requiring diabetes mellitus. 5. Microscopic hematuria, pyuria, bacteriuria 6. Leukocytosis with granulocytosis. 7. Anemia with decreasing hemoglobin/hematocrit. 8. Mild hypoalbuminemia. 9. Severely advanced dementia and Parkinson disease. 10. Severe gait dysfunction and deconditioning and bedridden status with functional quadriplegia. 11. History of hypertension. 12. History of gait dysfunction. 1. High-grade fever. 2. Possible sepsis versus systemic inflammatory response syndrome. 3. Tachycardia. 4. Tachypnea. 5. Leukocytosis with granulocytosis. 6. Normocytic anemia. 7. Possible sepsis with multilobar bilateral aspiration pneumonia. 8. Ber-lzcgucb-udyqmgagi diabetes mellitus. 9. Microscopic hematuria, pyuria, bacteriuria and triple phosphate crystals. 10. Severe advanced dementia. 11. Severe advanced Parkinson's disease. 12. History of recurrent sepsis, pneumonia and urinary tract infection. 13. Sacral decubitus ulceration. 14. Feeding dysfunction with gastrostomy tube placement. 15. Speech dysfunction. 16. Multilobar bilateral possible aspiration pneumonia with a new left lower lobe pneumonia. 17. Sinus tachycardia. 18. Sepsis with pneumonia. 19. Feeding dysfunction. 20. Possible functional quadriplegia with bedridden status and severe gait dysfunction. 21. Severe advanced dementia. 22. Severe advanced Parkinson's disease. 23. History of hypertension. 24. Insulin-requiring diabetes mellitus. 25. History of tachycardia. 26. Chronic pain syndrome. 27. History of recurrent sepsis and aspiration pneumonia. 28. History of sacral decubitus ulceration, history of recurrent aspiration pneumonia. 29. History of feeding dysfunction. 30. History of dysarthria, speech dysfunction. 31. History of neurogenic bladder with urinary retention incontinence and chronic indwelling Vega catheter placement. 32. Upper and lower extremity flexion contractures. 33. History of methicillin-resistant Staphylococcus aureus nares. 34. Possible functional quadriplegia with severe deconditioning, gait dysfunction, bedridden status. 35. History of hypernatremia. 36. History of malnutrition and hypoalbuminemia. 37. Recurrent sacral decubitus ulceration, recurrent aspiration pneumonia. 38. History of prostatic hypertrophy, history of gait dysfunction. PLAN: At this time, the patient has been ordered PRBC transfusion x1 unit. The patient will be continued on IV antibiotics as per Infectious Disease. The patient will be continued on gastrostomy tube feeding, the patient will be continued all the medications as per the MAR of today. ADDENDUM TO IMPRESSION: 1. Feeding dysfunction with gastrostomy tube placement. 2. High risk for aspiration. 3. Voiding dysfunction with neurogenic bladder requiring chronic indwelling Vega catheter. 4. Possible upper and lower extremity contractures. Treatment plan as dictated above. The patient is to be continued on all the medications as per the MAR of today which was reviewed and updated. Dictated and electronically signed, not read. Cameron Quinteros MD MTDD
--- NOTE | 2018-12-07 16:24 | CP.PCM.PN ---
Subjective - Date & Time of Evaluation Date of Evaluation: 12/07/18 Time of Evaluation: 08:50 - Subjective Subjective: Not in distress but not very responsive, no fevers. Objective - Vital Signs/Intake and Output Vital Signs (last 24 hours): Temp Pulse Resp BP Pulse Ox 97.7 F 87 20 172/81 H 100 12/07/18 14:00 12/07/18 14:00 12/07/18 14:00 12/07/18 14:00 12/07/18 14:00 - Medications Medications: Current Medications Acetaminophen (Tylenol 325mg Tab) 650 mg PO Q6 PRN PRN Reason: TEMP>=99.5F Acetaminophen (Tylenol 650 Mg Supp) 650 mg RC Q6H PRN PRN Reason: TEMP>=99.5F Acetylcysteine (Acetylcysteine 20%) 4 ml IH [id number] [facility] Last Admin: 12/07/18 14:03 Dose: 4 ml Ascorbic Acid (Vitamin C Liq) 500 mg PEG DAILY [facility] Last Admin: 12/07/18 10:47 Dose: 500 mg Aspirin (Aspirin Chewable) 81 mg PEG DAILY [facility] Last Admin: 12/07/18 10:49 Dose: 81 mg Carbidopa/Levodopa (Sinemet) 1 tab PEG 5XD [facility] Last Admin: 12/07/18 10:49 Dose: 1 tab Clonidine HCl (Catapres Tts1 0.1 Mg/24 Hr) 1 patch TD Q7D@1000 [facility] Last Admin: 12/06/18 11:05 Dose: 1 patch Doxycycline Hyclate (Doryx) 100 mg PO Q12 [facility]; Protocol Stop: 12/15/18 10:01 Last Admin: 12/07/18 10:49 Dose: 100 mg Enoxaparin Sodium (Lovenox) 40 mg SC DAILY [facility]; Protocol Last Admin: 12/07/18 10:46 Dose: 40 mg Meropenem (Merrem Iv 1 Gm Premix) 1 gm in 50 mls @ 100 mls/hr IVPB Q8 [facility]; Protocol Stop: 12/15/18 09:46 Last Admin: 12/07/18 05:56 Dose: 100 mls/hr Vancomycin HCl (Vancomycin 1gm) 1 gm in 250 mls @ 167 mls/hr IVPB Q12H [facility]; Protocol Stop: 12/15/18 09:46 Last Admin: 12/07/18 11:00 Dose: 167 mls/hr Lactated Ringer's (Lactated Ringer's) 1,000 mls @ 100 mls/hr IV .Q10H [facility] Last Admin: 12/06/18 20:45 Dose: 100 mls/hr Insulin Human Regular (Humulin R Low) 0 units SC Q6 [facility]; Protocol Last Admin: 12/07/18 08:34 Dose: Not Given Levalbuterol HCl (Xopenex) 0.63 mg IH [id number] [facility] Last Admin: 12/07/18 14:03 Dose: 0.63 mg Metoprolol Tartrate (Lopressor) 50 mg PEG Q8H [facility] Last Admin: 12/07/18 02:02 Dose: 50 mg Mirtazapine (Remeron) 15 mg PEG HS [facility] Last Admin: 12/06/18 21:59 Dose: 15 mg Multivitamins/Vitamin C (Multi-Delyn Liquid) 15 ml PEG 0800 [facility] Last Admin: 12/07/18 10:49 Dose: 15 ml Mupirocin (Bactroban Ointment) 0 gm NS BID [facility] Stop: 12/11/18 10:01 Last Admin: 12/07/18 10:48 Dose: 1 applic Nitroglycerin (Nitro-Bid 2% Oint) 1 ea TOP Q6 [facility] Last Admin: 12/07/18 12:23 Dose: 1 ea Ondansetron HCl (Zofran Inj) 4 mg IVP Q4H PRN PRN Reason: Nausea/Vomiting Pantoprazole Sodium (Protonix Inj) 40 mg IV DAILY [facility] Last Admin: 12/07/18 10:49 Dose: 40 mg Tramadol HCl (Ultram) 50 mg GT Q12H PRN PRN Reason: Pain, moderate (4-7) - Labs Labs: 12/07/18 06:35 12/07/18 06:35 - Constitutional Appears: Chronically Ill - Head Exam Head Exam: NORMAL INSPECTION - Respiratory Exam Respiratory Exam: Decreased Breath Sounds - Cardiovascular Exam Cardiovascular Exam: +S1, +S2 - GI/Abdominal Exam GI & Abdominal Exam: Soft. absent: Tenderness Assessment and Plan - Assessment and Plan (Free Text) Plan: Assessment sepsis due to bilateral HCAP, infected sacral ulcer S/P sepsis due to aspiration pneumonia in this patient with fecal impaction (S/P disimpaction), less likely bowel obstruction S/P [place] gastrostomy tube placement - air under diaphragm noted on CT A/P probably related to the gastrostomy tube placement (as discussed with Dr. Ball) DM HTN history of UTI's Plan continue Vancomycin, Merrem and Doxycycline day 2 pending blood and wound cx results; urine cx showing GNB follow up further plans of Surgery monitor clinically overall prognosis is poor
[2018-12-08] MEDS: Nitroglycerin 2% Ointment Foilpak UD TOP SCH ×4 (00:31→18:19)
[2018-12-08] MEDS: Acetylcysteine 20% Inhal Soln (4ml) IH SCH ×4 (02:11→19:49)
[2018-12-08] MEDS: Levalbuterol 0.63 MG/3 ML Inhal Soln UD IH SCH ×4 (02:11→19:49)
[2018-12-08] MEDS: Meropenem IV 1 gm in NS 1 GM/50 ML BAG IVPB SCH ×3 (06:44→22:10)
[2018-12-08 08:17] LABS: BASO # 0.02 K/mm3 (0.0-2.0); BASO % 0.2 % (0.0-3.0); EOS # 0.6 (0.0-0.7); EOS % 4.5 % (1.5-5.0); GRAN # 8.32 (1.4-6.5); GRAN % 64.5 % (50.0-68.0); HEMOGLOBIN 9.3 g/dL (14.0-18.0); LYMPH # 2.9 (1.2-3.4); LYMPH % 22.2 % (22.0-35.0); MEAN CELL VOLUME 80.6 fl (80.0-105.0); MEAN CORPUSCULAR HEMOGLOBIN 24.3 pg (25.0-35.0); MEAN CORPUSCULAR HGB CONC 30.2 g/dl (31.0-37.0); MEAN PLATELET VOLUME 8.5 fl (7.0-11.0); MONO # 1.1 (0.1-0.6); MONO % 8.6 % (1.0-6.0); RBC 3.82 10^6/uL (3.5-6.1); RED CELL DISTRIBUTION WIDTH 17.9 % (11.5-14.5); WHITE BLOOD COUNT 12.9 10^3/uL (4.5-11.0)
[2018-12-08 08:38] LABS: ALB/GLOB RATIO 0.7 (1.1-1.8); ALBUMIN 3.1 g/dL (3.0-4.8); ALT/SGPT 19 U/L (7-56); AST/SGOT 22 U/L (17-59); BILIRUBIN,DIRECT 0.2 mg/dL (0.0-0.4); BLOOD UREA NITROGEN 15 mg/dL (7-21); CALCIUM 9.4 mg/dL (8.4-10.5); GFR NON-AFRICAN AMERICAN > 60
[2018-12-08] MEDS: Insulin Reg-LOW-Coverage SC SCH ×3 (09:22→18:21)
--- NOTE | 2018-12-08 09:37 | CP.PCM.PN ---
<Marino Suarez - Last Filed: 12/08/18 14:16> Subjective - Date & Time of Evaluation Date of Evaluation: 12/08/18 Time of Evaluation: 09:36 - Subjective Subjective: Patient seen and examined at bedside with daughter and nurse. Patient's wound dressing was being changed at the time. Nurse states no acute events overnight aside from patient coughing from time to time. Objective - Vital Signs/Intake and Output Vital Signs (last 24 hours): Temp Pulse Resp BP Pulse Ox 98.2 F 79 20 142/69 100 12/08/18 06:00 12/08/18 06:00 12/08/18 06:00 12/08/18 06:00 12/08/18 06:00 Intake and Output: 12/08/18 12/08/18 06:59 18:59 Intake Total 0 Output Total 1200 Balance -1200 - Medications Medications: Current Medications Acetaminophen (Tylenol 325mg Tab) 650 mg PO Q6 PRN PRN Reason: TEMP>=99.5F Acetaminophen (Tylenol 650 Mg Supp) 650 mg RC Q6H PRN PRN Reason: TEMP>=99.5F Acetylcysteine (Acetylcysteine 20%) 4 ml IH [id number] [facility] Last Admin: 12/08/18 07:26 Dose: 4 ml Ascorbic Acid (Vitamin C Liq) 500 mg PEG DAILY [facility] Last Admin: 12/07/18 10:47 Dose: 500 mg Aspirin (Aspirin Chewable) 81 mg PEG DAILY [facility] Last Admin: 12/07/18 10:49 Dose: 81 mg Carbidopa/Levodopa (Sinemet) 1 tab PEG 5XD [facility] Last Admin: 12/07/18 21:18 Dose: 1 tab Clonidine HCl (Catapres Tts1 0.1 Mg/24 Hr) 1 patch TD Q7D@1000 [facility] Last Admin: 12/06/18 11:05 Dose: 1 patch Doxycycline Hyclate (Doryx) 100 mg PO Q12 [facility]; Protocol Stop: 12/15/18 10:01 Last Admin: 12/07/18 21:18 Dose: 100 mg Enoxaparin Sodium (Lovenox) 40 mg SC DAILY [facility]; Protocol Last Admin: 12/07/18 10:46 Dose: 40 mg Meropenem (Merrem Iv 1 Gm Premix) 1 gm in 50 mls @ 100 mls/hr IVPB Q8 [facility]; P rotocol Stop: 12/15/18 09:46 Last Admin: 12/08/18 06:44 Dose: 100 mls/hr Vancomycin HCl (Vancomycin 1gm) 1 gm in 250 mls @ 167 mls/hr IVPB Q12H [facility]; Protocol Stop: 12/15/18 09:46 Last Admin: 12/07/18 20:50 Dose: 167 mls/hr Lactated Ringer's (Lactated Ringer's) 1,000 mls @ 100 mls/hr IV .Q10H [facility] Last Admin: 12/06/18 20:45 Dose: 100 mls/hr Insulin Human Regular (Humulin R Low) 0 units SC Q6 [facility]; Protocol Last Admin: 12/08/18 09:22 Dose: Not Given Levalbuterol HCl (Xopenex) 0.63 mg IH [id number] [facility] Last Admin: 12/08/18 07:26 Dose: 0.63 mg Metoprolol Tartrate (Lopressor) 50 mg PEG Q8H [facility] Last Admin: 12/08/18 06:53 Dose: Not Given Mirtazapine (Remeron) 15 mg PEG HS [facility] Last Admin: 12/07/18 21:18 Dose: 15 mg Multivitamins/Vitamin C (Multi-Delyn Liquid) 15 ml PEG 0800 [facility] Last Admin: 12/07/18 10:49 Dose: 15 ml Mupirocin (Bactroban Ointment) 0 gm NS BID [facility] Stop: 12/11/18 10:01 Last Admin: 12/07/18 19:09 Dose: 1 applic Nitroglycerin (Nitro-Bid 2% Oint) 1 ea TOP Q6 [facility] Last Admin: 12/08/18 09:23 Dose: Not Given Ondansetron HCl (Zofran Inj) 4 mg IVP Q4H PRN PRN Reason: Nausea/Vomiting Pantoprazole Sodium (Protonix Inj) 40 mg IV DAILY [facility] Last Admin: 12/07/18 10:49 Dose: 40 mg Tramadol HCl (Ultram) 50 mg GT Q12H PRN PRN Reason: Pain, moderate (4-7) - Labs Labs: 12/08/18 08:00 12/08/18 08:00 - Head Exam Head Exam: ATRAUMATIC, NORMAL INSPECTION, NORMOCEPHALIC - ENT Exam ENT Exam: Mucous Membranes Dry - Respiratory Exam Respiratory Exam: absent: Clear to Ausculation Bilateral (congested) - Cardiovascular Exam Cardiovascular Exam: REGULAR RHYTHM, +S1, +S2 - GI/Abdominal Exam GI & Abdominal Exam: Soft - Extremities Exam Extremities Exam: Normal Inspection - Back Exam Additional comments: 5 x 8 cm stage IV sacral ulcer - Neurological Exam Neurological Exam: absent: Alert, Awake (eyes closed) - Psychiatric Exam Psychiatric exam: Normal Mood - Skin Skin Exam: Dry, Warm Additional comments: 5 x 8 cm stage IV sacral ulcer Assessment and Plan - Assessment and Plan (Free Text) Assessment: 83 M with history of DM, and hypertension presenting with sepsis secondary to bilateral HAP and infected sacral ulcer. Sepsis secondary to bilateral HAP and infected sacral ulcer. -continue with IVF -Continue with Vanc, Merrem, doxycycline day 3 -Urine culture shows proteus mirabalis Sacral wound Stage IV -Silvadene -Algiform and Optifoam for dressing Hypertension -Continue clonidine -Continue lopressor DM -ISS-low GI/DVT ppx -Protonix/Lovenox <Cameron Quinteros U - Last Filed: 12/16/18 16:00> Objective - Vital Signs/Intake and Output Vital Signs (last 24 hours): Temp Pulse Resp BP Pulse Ox 98.2 F 82 20 143/70 100 12/15/18 12:00 12/15/18 12:00 12/15/18 12:00 12/15/18 12:00 12/15/18 12:00 - Labs Labs: 12/12/18 08:00 12/12/18 08:00 Attending/Attestation - Attestation I have personally seen and examined this patient.: Yes I have fully participated in the care of the patient.: Yes I have reviewed all pertinent clinical information, including history, physical exam and plan: Yes Notes (Text): Please see/read my dictated notes.
--- NOTE | 2018-12-08 11:07 | PN ---
DATE: 12/08/2018 LOCATION: Room 568, bed 1. The patient is again seen lying in the bed. The patient is arousable to painful stimuli. Overnight last 24 hours nurse's notes were reviewed. The patient required stop restraints to prevent gastrostomy tube pulling and IV access pulling. The patient did not get packed red blood cell transfusion ordered yesterday. This issue was discussed with the nurse in charge today. The reasons are unknown why the patient did not get packed red blood cell transfusion yesterday when the patient's hemoglobin dropped to around 8 from his baseline hemoglobin around 11-plus grams. PHYSICAL EXAMINATION: VITAL SIGNS: Today, his T-max 97, heart rate 75, blood pressure 125/66, respiration 20, O2 sat 92 to 100%. HEAD: Normocephalic, atraumatic. HEENT: Pale conjunctivae. Anicteric sclerae, dry oral mucosa. No neck rigidity. CHEST: Kyphosis. LUNGS: Positive rhonchi bilaterally, left more than the right. CARDIOVASCULAR: S1, S2, regular rhythm. Questionable soft systolic murmur at left sternal border, right second intercostal space, left second intercostal space. ABDOMEN: Soft. Positive gastrostomy. No palpable hepatosplenomegaly noted. GENITALIA: Male. Positive Vega catheter. EXTREMITIES: Positive Multi-Podus boot. No pitting edema noted. MUSCULOSKELETAL: Decreased muscle mass. NEUROLOGICAL: Examination is limited secondary to advanced dementia and Parkinson's disease. Gait examination is bedridden. DIAGNOSTICS: Urine culture is growing questionable multidrug-resistant Proteus mirabilis urinary tract infection. WBC count 12.9, hemoglobin and hematocrit 9.3 and 30.8, platelet 480. Sodium 141, potassium 4, chloride 108, CO2 of 30, BUN 15, creatinine 0.5, glucose 127, calcium 9.4, phosphorus 3.4, magnesium 1.9. LFTs are within normal limit. IMPRESSION: 1. Sepsis with multilobar bilateral healthcare-associated pneumonia versus questionable aspiration pneumonia. 2. Advanced Parkinson's disease and dementia with questionable behavioral disorder with episodic agitation. 3. Questionable multidrug-resistant Proteus mirabilis urinary tract infection. 4. Slow-resolving leukocytosis with granulocytosis. 5. Normocytic anemia with decreasing hemoglobin and hematocrit. 6. Insulin-requiring diabetes mellitus. 7. Severe feeding dysfunction and oropharyngeal dysphagia with placement of gastrostomy tube. 8. Neurogenic bladder with chronic indwelling Vega catheter. 9. Sacral decubitus ulceration. 10. Severe advanced Parkinson's disease and dementia. 11. Severe gait dysfunction and deconditioning and bedridden status and functional quadriplegia. 12. History of hypertension. 13. History of diabetes mellitus. 1. Sepsis with multilobar bilateral healthcare-associated pneumonia. 2. Sacral decubitus ulceration. 3. Hyperprocalcitoninemia. 4. Insulin-requiring diabetes mellitus. 5. Microscopic hematuria, pyuria, bacteriuria 6. Leukocytosis with granulocytosis. 7. Anemia with decreasing hemoglobin/hematocrit. 8. Mild hypoalbuminemia. 9. Severely advanced dementia and Parkinson disease. 10. Severe gait dysfunction and deconditioning and bedridden status with functional quadriplegia. 11. History of hypertension. 12. History of gait dysfunction. 1. High-grade fever. 2. Possible sepsis versus systemic inflammatory response syndrome. 3. Tachycardia. 4. Tachypnea. 5. Leukocytosis with granulocytosis. 6. Normocytic anemia. 7. Possible sepsis with multilobar bilateral aspiration pneumonia. 8. [id number] diabetes mellitus. 9. Microscopic hematuria, pyuria, bacteriuria and triple phosphate crystals. 10. Severe advanced dementia. 11. Severe advanced Parkinson's disease. 12. History of recurrent sepsis, pneumonia and urinary tract infection. 13. Sacral decubitus ulceration. 14. Feeding dysfunction with gastrostomy tube placement. 15. Speech dysfunction. 16. Multilobar bilateral possible aspiration pneumonia with a new left lower lobe pneumonia. 17. Sinus tachycardia. 18. Sepsis with pneumonia. 19. Feeding dysfunction. 20. Possible functional quadriplegia with bedridden status and severe gait dysfunction. 21. Severe advanced dementia. 22. Severe advanced Parkinson's disease. 23. History of hypertension. 24. Insulin-requiring diabetes mellitus. 25. History of tachycardia. 26. Chronic pain syndrome. 27. History of recurrent sepsis and aspiration pneumonia. 28. History of sacral decubitus ulceration, history of recurrent aspiration pneumonia. 29. History of feeding dysfunction. 30. History of dysarthria, speech dysfunction. 31. History of neurogenic bladder with urinary retention incontinence and chronic indwelling Vega catheter placement. 32. Upper and lower extremity flexion contractures. 33. History of methicillin-resistant Staphylococcus aureus nares. 34. Possible functional quadriplegia with severe deconditioning, gait dysfunction, bedridden status. 35. History of hypernatremia. 36. History of malnutrition and hypoalbuminemia. 37. Recurrent sacral decubitus ulceration, recurrent aspiration pneumonia. 38. History of prostatic hypertrophy, history of gait dysfunction. PLAN: At this time, the patient is to be continued on IV antibiotics for urinary tract infection and pneumonia. The patient will be continued on gastrostomy feeding and IV fluid. The patient will be continued on GI, DVT prophylaxis. The patient will be continued on basal and bolus insulin with sliding scale coverage. The patient's packed red blood cell transfusion 1 unit will be given to keep hemoglobin around 10 to 11 g which is the patient's baseline hemoglobin. The patient's IV antibiotic duration is as per the Infectious Disease recommendation. Once the patient's IV antibiotics duration is completed, the patient will be returning back to [facility]. I have attempted to contact the patient's daughter, Cristal, yesterday via the phone. The daughter's voice mail was full and unable to the message. The patient's overall prognosis is guarded to poor secondary to advanced age and multiple complicated comorbidities and multiple episodic decompensation. Dictated and electronically signed, not read. Cameron Quinteros MD MTDD
[2018-12-08] MEDS: Enoxaparin 40 mg Syringe SC SCH (11:33)
[2018-12-08] MEDS: Multi Vitamins 15 mL UD Oral Solution PEG SCH (11:34)
[2018-12-08] MEDS: Carbidopa/Levodopa 25/250 PEG SCH ×4 (11:35→22:10)
[2018-12-08] MEDS: Vancomycin 1gm in NS 250ml 1 GM/250 ML BAG IVPB SCH ×2 (11:35→22:30)
[2018-12-08] MEDS ORDERED: Albuterol-Ipratrop 3 mg / 0.5 (3 ml) UD IH PRN (12:43)
[2018-12-08] MEDS: Albuterol-Ipratrop 3 mg / 0.5 (3 ml) UD IH SCH ×2 (13:29→19:49)
[2018-12-08] MEDS: Mupirocin 2% Ointment 15 GM TUBE NS SCH ×2 (14:27→18:27)
[2018-12-08] MEDS: Lactated Ringer's 1,000 ML IV SCH (14:28)
[2018-12-08] MEDS: Ascorbic Acid 500 mg/5 ml Liq(50 ml) PEG SCH (14:31)
--- NOTE | 2018-12-08 18:06 | CP.PCM.PN ---
Subjective - Date & Time of Evaluation Date of Evaluation: 12/08/18 Time of Evaluation: 09:25 - Subjective Subjective: Awake but lethargic, no fevers. Objective - Vital Signs/Intake and Output Vital Signs (last 24 hours): Temp Pulse Resp BP Pulse Ox 97.7 F 87 20 172/81 H 100 12/07/18 14:00 12/07/18 14:00 12/07/18 14:00 12/07/18 14:00 12/07/18 14:00 - Medications Medications: Current Medications Acetaminophen (Tylenol 325mg Tab) 650 mg PO Q6 PRN PRN Reason: TEMP>=99.5F Acetaminophen (Tylenol 650 Mg Supp) 650 mg RC Q6H PRN PRN Reason: TEMP>=99.5F Acetylcysteine (Acetylcysteine 20%) 4 ml IH [id number] [facility] Last Admin: 12/07/18 14:03 Dose: 4 ml Ascorbic Acid (Vitamin C Liq) 500 mg PEG DAILY [facility] Last Admin: 12/07/18 10:47 Dose: 500 mg Aspirin (Aspirin Chewable) 81 mg PEG DAILY [facility] Last Admin: 12/07/18 10:49 Dose: 81 mg Carbidopa/Levodopa (Sinemet) 1 tab PEG 5XD [facility] Last Admin: 12/07/18 10:49 Dose: 1 tab Clonidine HCl (Catapres Tts1 0.1 Mg/24 Hr) 1 patch TD Q7D@1000 [facility] Last Admin: 12/06/18 11:05 Dose: 1 patch Doxycycline Hyclate (Doryx) 100 mg PO Q12 [facility]; Protocol Stop: 12/15/18 10:01 Last Admin: 12/07/18 10:49 Dose: 100 mg Enoxaparin Sodium (Lovenox) 40 mg SC DAILY [facility]; Protocol Last Admin: 12/07/18 10:46 Dose: 40 mg Meropenem (Merrem Iv 1 Gm Premix) 1 gm in 50 mls @ 100 mls/hr IVPB Q8 [facility]; Protocol Stop: 12/15/18 09:46 Last Admin: 12/07/18 05:56 Dose: 100 mls/hr Vancomycin HCl (Vancomycin 1gm) 1 gm in 250 mls @ 167 mls/hr IVPB Q12H [facility]; Protocol Stop: 12/15/18 09:46 Last Admin: 12/07/18 11:00 Dose: 167 mls/hr Lactated Ringer's (Lactated Ringer's) 1,000 mls @ 100 mls/hr IV .Q10H [facility] Last Admin: 12/06/18 20:45 Dose: 100 mls/hr Insulin Human Regular (Humulin R Low) 0 units SC Q6 [facility]; Protocol Last Admin: 12/07/18 08:34 Dose: Not Given Levalbuterol HCl (Xopenex) 0.63 mg IH [id number] [facility] Last Admin: 12/07/18 14:03 Dose: 0.63 mg Metoprolol Tartrate (Lopressor) 50 mg PEG Q8H [facility] Last Admin: 12/07/18 02:02 Dose: 50 mg Mirtazapine (Remeron) 15 mg PEG HS [facility] Last Admin: 12/06/18 21:59 Dose: 15 mg Multivitamins/Vitamin C (Multi-Delyn Liquid) 15 ml PEG 0800 [facility] Last Admin: 12/07/18 10:49 Dose: 15 ml Mupirocin (Bactroban Ointment) 0 gm NS BID [facility] Stop: 12/11/18 10:01 Last Admin: 12/07/18 10:48 Dose: 1 applic Nitroglycerin (Nitro-Bid 2% Oint) 1 ea TOP Q6 [facility] Last Admin: 12/07/18 12:23 Dose: 1 ea Ondansetron HCl (Zofran Inj) 4 mg IVP Q4H PRN PRN Reason: Nausea/Vomiting Pantoprazole Sodium (Protonix Inj) 40 mg IV DAILY [facility] Last Admin: 12/07/18 10:49 Dose: 40 mg Tramadol HCl (Ultram) 50 mg GT Q12H PRN PRN Reason: Pain, moderate (4-7) - Labs Labs: 12/07/18 06:35 12/07/18 06:35 - Constitutional Appears: Chronically Ill - Head Exam Head Exam: NORMAL INSPECTION - Respiratory Exam Respiratory Exam: Decreased Breath Sounds - Cardiovascular Exam Cardiovascular Exam: +S1, +S2 - GI/Abdominal Exam GI & Abdominal Exam: Soft. absent: Tenderness Assessment and Plan - Assessment and Plan (Free Text) Plan: Assessment sepsis due to bilateral HCAP, infected sacral ulcer S/P sepsis due to aspiration pneumonia in this patient with fecal impaction (S/P disimpaction), less likely bowel obstruction S/P [place] gastrostomy tube placement - air under diaphragm noted on CT A/P probably related to the gastrostomy tube placement (as discussed with Dr. Ball) DM HTN history of UTI's Plan continue Vancomycin, Merrem and Doxycycline day 3 pending blood and wound cx results; urine cx showing GNB follow up further plans of Surgery monitor clinically overall prognosis is poor
[2018-12-08] MEDS: Silver Sulfadiazine 1% Cream (25 gm) TP SCH (18:19)
[2018-12-09] MEDS: Nitroglycerin 2% Ointment Foilpak UD TOP SCH ×4 (00:15→18:30)
[2018-12-09] MEDS: Lactated Ringer's 1,000 ML IV SCH (00:30)
[2018-12-09] MEDS: Acetylcysteine 20% Inhal Soln (4ml) IH SCH ×4 (01:48→21:21)
[2018-12-09] MEDS: Albuterol-Ipratrop 3 mg / 0.5 (3 ml) UD IH SCH ×4 (01:50→21:21)
[2018-12-09] MEDS: Insulin Reg-LOW-Coverage SC SCH ×4 (06:00→18:25)
[2018-12-09] MEDS: Carbidopa/Levodopa 25/250 PEG SCH ×5 (06:30→21:35)
[2018-12-09] MEDS: Meropenem IV 1 gm in NS 1 GM/50 ML BAG IVPB SCH ×3 (06:30→21:35)
[2018-12-09 07:12] LABS: BASO # 0.03 K/mm3 (0.0-2.0); BASO % 0.3 % (0.0-3.0); EOS # 0.4 (0.0-0.7); EOS % 3.6 % (1.5-5.0); GRAN # 6.03 (1.4-6.5); GRAN % 62.1 % (50.0-68.0); HEMOGLOBIN 11.2 g/dL (14.0-18.0); LYMPH # 2.5 (1.2-3.4); LYMPH % 25.6 % (22.0-35.0); MEAN CELL VOLUME 79.8 fl (80.0-105.0); MEAN CORPUSCULAR HEMOGLOBIN 25.2 pg (25.0-35.0); MEAN CORPUSCULAR HGB CONC 31.5 g/dl (31.0-37.0); MEAN PLATELET VOLUME 8.6 fl (7.0-11.0); MONO # 0.8 (0.1-0.6); MONO % 8.4 % (1.0-6.0); RBC 4.45 10^6/uL (3.5-6.1); RED CELL DISTRIBUTION WIDTH 17.3 % (11.5-14.5); WHITE BLOOD COUNT 9.7 10^3/uL (4.5-11.0)
[2018-12-09 07:39] LABS: ALB/GLOB RATIO 0.7 (1.1-1.8); ALBUMIN 3.3 g/dL (3.0-4.8); ALT/SGPT 9 U/L (7-56); AST/SGOT 33 U/L (17-59); BILIRUBIN,DIRECT 0.3 mg/dL (0.0-0.4); BLOOD UREA NITROGEN 16 mg/dL (7-21); CALCIUM 9.5 mg/dL (8.4-10.5); GFR NON-AFRICAN AMERICAN > 60
[2018-12-09] MEDS: Levalbuterol 0.63 MG/3 ML Inhal Soln UD IH SCH ×3 (08:09→21:22)
[2018-12-09] MEDS: Enoxaparin 40 mg Syringe SC SCH (10:53)
[2018-12-09] MEDS: Vancomycin 1gm in NS 250ml 1 GM/250 ML BAG IVPB SCH ×2 (10:54→21:36)
[2018-12-09] MEDS: Multi Vitamins 15 mL UD Oral Solution PEG SCH (10:54)
[2018-12-09] MEDS: Ascorbic Acid 500 mg/5 ml Liq(50 ml) PEG SCH (10:55)
[2018-12-09] MEDS: Mupirocin 2% Ointment 15 GM TUBE NS SCH ×2 (10:56→18:26)
[2018-12-09] MEDS: Silver Sulfadiazine 1% Cream (25 gm) TP SCH (11:12)
--- NOTE | 2018-12-09 11:12 | CP.PCM.CON ---
History of Present Illness - History of Present Illness History of Present Illness: Surgery Consult note- Dr. Farmer (covering for Dr. Ball) Reason for Consult: PEG tube Eval, Sacral Decubitus ulcer 83M pmhx significant for HTN, Parkinsons, dementia, sacral decubitus ulcers, initially presented to [facility] [place] [place] from [facility] for fevers. Patient was found to have pneumonia. During hospital work up, patient G-tube was found to have some leaking around the tube site. No local skin excoriation noted. S acrum was also evaluated at bedside, noting a clean base with healthy granulation tissue. PMH: hypertension, dementia, Parkinson's disease, sacral decubitus ulcer stage IV, pneumonia, cholelithiasis, and diabetes mellitus type II PSH: G tube placed on 08/07/18 ALL: NKDA SocialHx: resides at [facility], moved from [place] FH: brother had diabetes mellitus type II PMD: Dr. Quinteros Review of Systems - Review of Systems All systems: reviewed and no additional remarkable complaints except - Constitutional Constitutional: As Per HPI Past Patient History - Past Medical History & Family History Past Medical History?: Yes - Past Social History Smoking Status: Unknown If Ever Smoked - CARDIAC Hx Hypertension: Yes - PULMONARY Hx Respiratory Disorders: Yes Hx Pneumonia: Yes - NEUROLOGICAL Hx Dementia: Yes Hx Parkinson's Disease: Yes - HEENT Hx HEENT Problems: Yes Hx Difficulty Chewing: Yes - RENAL Hx Chronic Kidney Disease: No - ENDOCRINE/METABOLIC Hx Diabetes Mellitus Type 2: Yes - HEMATOLOGICAL/ONCOLOGICAL Hx Anemia: Yes - INTEGUMENTARY Hx Dermatological Problems: Yes Other/Comment: skin breakdown sacrum - MUSCULOSKELETAL/RHEUMATOLOGICAL Hx Musculoskeletal Disorders: Yes Hx Falls: No Hx Unsteady Gait: Yes Other/Comment: bed bound - GASTROINTESTINAL Hx Gastrointestinal Disorders: No Other/Comment: PEG tube - GENITOURINARY/GYNECOLOGICAL Hx Genitourinary Disorders: Yes Hx Incontinence: Yes Hx Prostate Problems: Yes (BPH) Other/Comment: inguinal hernia - PSYCHIATRIC Hx Psychophysiologic Disorder: No - SURGICAL HISTORY Hx Surgeries: No - ANESTHESIA Hx Anesthesia: Yes Hx Anesthesia Reactions: No Hx Malignant Hyperthermia: No Meds Allergies/Adverse Reactions: Allergies Allergy/AdvReac Type Severity Reaction Status Date / Time No Known Allergies Allergy Verified 12/06/18 00:53 - Medications Medications: Current Medications Acetaminophen (Tylenol 325mg Tab) 650 mg PO Q6 PRN PRN Reason: TEMP>=99.5F Acetaminophen (Tylenol 650 Mg Supp) 650 mg RC Q6H PRN PRN Reason: TEMP>=99.5F Acetylcysteine (Acetylcysteine 20%) 4 ml IH [id number] [facility] Last Admin: 12/09/18 08:09 Dose: 4 ml Albuterol/Ipratropium (Duoneb 3 Mg/0.5 Mg (3 Ml) Ud) 3 ml IH [id number] [facility] Last Admin: 12/09/18 08:10 Dose: Not Given Albuterol/Ipratropium (Duoneb 3 Mg/0.5 Mg (3 Ml) Ud) 3 ml IH Q2H PRN PRN Reason: Shortness of Breath Ascorbic Acid (Vitamin C Liq) 500 mg PEG DAILY [facility] Last Admin: 12/08/18 14:31 Dose: 500 mg Aspirin (Aspirin Chewable) 81 mg PEG DAILY [facility] Last Admin: 12/08/18 11:29 Dose: 81 mg Carbidopa/Levodopa (Sinemet) 1 tab PEG 5XD [facility] Last Admin: 12/09/18 06:30 Dose: 1 tab Clonidine HCl (Catapres Tts1 0.1 Mg/24 Hr) 1 patch TD Q7D@1000 [facility] Last Admin: 12/06/18 11:05 Dose: 1 patch Doxycycline Hyclate (Doryx) 100 mg PO Q12 [facility]; Protocol Stop: 12/15/18 10:01 Last Admin: 12/08/18 22:10 Dose: 100 mg Enoxaparin Sodium (Lovenox) 40 mg SC DAILY [facility]; Protocol Last Admin: 12/08/18 11:33 Dose: Not Given Furosemide (Lasix) 40 mg IVP ONCE PRN PRN Reason: Systolic Blood Pressure Last Admin: 12/08/18 14:35 Dose: 40 mg Meropenem (Merrem Iv 1 Gm Premix) 1 gm in 50 mls @ 100 mls/hr IVPB Q8 [facility]; Protocol Stop: 12/15/18 09:46 Last Admin: 12/09/18 06:30 Dose: 100 mls/hr Vancomycin HCl (Vancomycin 1gm) 1 gm in 250 mls @ 167 mls/hr IVPB Q12H [facility]; Protocol Stop: 12/15/18 09:46 Last Admin: 12/08/18 22:30 Dose: 167 mls/hr Lactated Ringer's (Lactated Ringer's) 1,000 mls @ 100 mls/hr IV .Q10H [facility] Last Admin: 12/09/18 00:30 Dose: 100 mls/hr Insulin Human Regular (Humulin R Low) 0 units SC Q6 [facility]; Protocol Last Admin: 12/09/18 00:00 Dose: Not Given Levalbuterol HCl (Xopenex) 0.63 mg IH [id number] [facility] Last Admin: 12/09/18 08:09 Dose: 0.63 mg Metoprolol Tartrate (Lopressor) 50 mg PEG Q8H [facility] Last Admin: 12/09/18 02:30 Dose: 50 mg Mirtazapine (Remeron) 15 mg PEG HS [facility] Last Admin: 12/08/18 22:10 Dose: 15 mg Multivitamins/Vitamin C (Multi-Delyn Liquid) 15 ml PEG 0800 [facility] Last Admin: 12/08/18 11:34 Dose: 15 ml Mupirocin (Bactroban Ointment) 0 gm NS BID [facility] Stop: 12/11/18 10:01 Last Admin: 12/08/18 18:27 Dose: 2 applic Nitroglycerin (Nitro-Bid 2% Oint) 1 ea TOP Q6 [facility] Last Admin: 12/09/18 06:30 Dose: 1 ea Ondansetron HCl (Zofran Inj) 4 mg IVP Q4H PRN PRN Reason: Nausea/Vomiting Pantoprazole Sodium (Protonix Inj) 40 mg IV DAILY [facility] Last Admin: 12/08/18 09:35 Dose: 40 mg Silver Sulfadiazine (Silvadene 1% 25 Gm) 0 gm TP DAILY [facility] Last Admin: 12/08/18 18:19 Dose: 25 gm Tramadol HCl (Ultram) 50 mg GT Q12H PRN PRN Reason: Pain, moderate (4-7) Physical Exam - Constitutional Appears: Non-toxic, No Acute Distress, Chronically Ill - Head Exam Head Exam: ATRAUMATIC - Eye Exam Eye Exam: absent: Scleral icterus - ENT Exam ENT Exam: Mucous Membranes Moist - Respiratory Exam Respiratory Exam: NORMAL BREATHING PATTERN. absent: Accessory Muscle Use, Respiratory Distress - Cardiovascular Exam Cardiovascular Exam: REGULAR RHYTHM, +S1, +S2. absent: Bradycardia, Tachycardia - GI/Abdominal Exam GI & Abdominal Exam: Hernia (Right inguinal hernia, easily reducible), Soft. absent: Diminished Bowel Sounds, Distended, Firm, Guarding, Tenderness Additional comments: G-tube in place. Bumper is loose. Mild leakage from tube feeds. Skin around G- tube intact - Rectal Exam Rectal Exam: absent: Bloody Stool - Extremities Exam Extremities exam: Negative for: calf tenderness - Back Exam Additional comments: Sacral Decubitus ulcer stage III clean base, healthy tissue. No necrosis noted. - Neurological Exam Neurological exam: Alert, Oriented x3 - Psychiatric Exam Psychiatric exam: Normal Affect - Skin Skin Exam: Intact, Warm Results - Vital Signs Recent Vital Signs: Last Vital Signs Temp 97.0 F L 12/09/18 06:00 Pulse 87 12/09/18 06:00 Resp 20 12/09/18 06:00 BP 168/72 H 12/09/18 06:00 Pulse Ox 99 12/09/18 06:00 - Labs Result Diagrams: 12/09/18 06:30 12/09/18 06:30 Labs: Laboratory Results - last 24 hr 12/07/18 12/08/18 12/08/18 07:55 11:18 15:50 WBC RBC Hgb Hct MCV MCH MCHC RDW Plt Count MPV Gran % Lymph % (Auto) [place] % (Auto) Eos % (Auto) Baso % (Auto) Gran # Lymph # (Auto) [place] # (Auto) Eos # (Auto) Baso # (Auto) Sodium Potassium Chloride Carbon Dioxide Anion Gap BUN Creatinine Est GFR ( Amer) Est GFR (Non-Af Amer) POC Glucose (mg/dL) 166 H 160 H Random Glucose Calcium Phosphorus Magnesium Total Bilirubin Direct Bilirubin AST ALT Alkaline Phosphatase Total Protein Albumin Globulin Albumin/Globulin Ratio Blood Type A POSITIVE Antibody Screen Negative Crossmatch See Detail BBK History Checked Patient has bt 12/08/18 12/09/18 12/09/18 21:05 06:30 06:30 WBC 9.7 D RBC 4.45 Hgb 11.2 L Hct 35.5 L MCV 79.8 L MCH 25.2 MCHC 31.5 RDW 17.3 H Plt Count 477 H MPV 8.6 Gran % 62.1 Lymph % (Auto) 25.6 [place] % (Auto) 8.4 H Eos % (Auto) 3.6 Baso % (Auto) 0.3 Gran # 6.03 Lymph # (Auto) 2.5 [place] # (Auto) 0.8 H Eos # (Auto) 0.4 Baso # (Auto) 0.03 Sodium 138 Potassium 4.3 Chloride 104 Carbon Dioxide 29 Anion Gap 9 L BUN 16 Creatinine 0.5 L Est GFR ( Amer) > 60 Est GFR (Non-Af Amer) > 60 POC Glucose (mg/dL) 114 H Random Glucose 115 H Calcium 9.5 Phosphorus 3.0 Magnesium 2.0 Total Bilirubin 0.5 Direct Bilirubin 0.3 AST 33 ALT 9 Alkaline Phosphatase 119 Total Protein 8.0 Albumin 3.3 Globulin 4.7 Albumin/Globulin Ratio 0.7 L Blood Type Antibody Screen Crossmatch BBK History Checked 12/09/18 06:31 WBC RBC Hgb Hct MCV MCH MCHC RDW Plt Count MPV Gran % Lymph % (Auto) [place] % (Auto) Eos % (Auto) Baso % (Auto) Gran # Lymph # (Auto) [place] # (Auto) Eos # (Auto) Baso # (Auto) Sodium Potassium Chloride Carbon Dioxide Anion Gap BUN Creatinine Est GFR ( Amer) Est GFR (Non-Af Amer) POC Glucose (mg/dL) 112 H Random Glucose Calcium Phosphorus Magnesium Total Bilirubin Direct Bilirubin AST ALT Alkaline Phosphatase Total Protein Albumin Globulin Albumin/Globulin Ratio Blood Type Antibody Screen Crossmatch BBK History Checked Assessment & Plan - Assessment and Plan (Free Text) Assessment: 83M admitted for Pneumonia; milk leakage around G-tube site, with no active signs of infection, and stage III sacral decubitus ulcer w/ good healthy granulation tissue Plan: - Will find and replace G-tube bumper to prevent continued drainage of tube feeds around g-tube site - local wound care for sacrum; no surgical intervention required at this time - turn q2 - air mattress - further recs per Dr. Farmer covering for Dr. Quinn Del Angel PGY2
--- NOTE | 2018-12-09 11:40 | PN ---
DATE: 12/09/2018 SUBJECTIVE: The patient is now moved to room 266, bed 2 for isolation purposes. The patient is seen in room 266, bed 2. Overnight nurse's notes were reviewed. No adverse events were reported or documented. The patient is lying in the bed. The patient is nonverbal. OBJECTIVE: VITAL SIGNS: T-max 98 degrees Fahrenheit, heart rate 87, 95, blood pressure 168/72, respirations 20, O2 sat 99%. GENERAL: The patient is seen lying in the bed. HEENT: Head: Normocephalic, atraumatic. HEENT examination shows pinkish pale conjunctivae. Anicteric sclerae, dry oral mucosa. NECK: No neck rigidity. CHEST: Kyphosis. LUNGS: Shows positive rhonchi bilaterally, left more than the right. CARDIOVASCULAR: S1, S2, regular rhythm. Positive systolic murmur left sternal border, right second intercostal space, left second intercostal space. ABDOMEN: Soft. Positive bowel sound, positive gastrostomy tube placement noted. GENITALIA: Male. Positive Vega catheter. EXTREMITIES: Shows negative pitting edema, no calf tenderness. Positive Multi Podus boot. GAIT: The patient's gait examination is not tested as the patient is lying in the bed and the patient is bedridden. DIAGNOSTICS: 12/09, WBC count is down to 9.7, hemoglobin and hematocrit 11.2, 35.5, platelets 477. Urine cultures, Proteus mirabilis urinary tract infection. Sodium 138, potassium 4.3, chloride 104, CO2 of 29, BUN 16, creatinine 0.5, glucose 115, calcium 9.5, phosphorus 3.0, magnesium 2.0. LFTs are within normal limit. The patient received 1 unit of PRBC. IMPRESSION AND PLAN: 1. Sepsis with multilobar bilateral healthcare-associated possible aspiration pneumonia. 2. Sacral decubitus ulceration. 3. Proteus mirabilis urinary tract infection. 4. Normocytic anemia with decreasing hemoglobin/hematocrit. 5. Status post packed red blood cell transfusion x1. 6. Advanced Parkinson disease and parkinsonism with severely advanced dementia. 7. Hypertension. 8. Feeding dysfunction with gastrostomy tube placement. 9. Voiding dysfunction with neurogenic bladder requiring Vega catheter dependent. 10. Severe gait dysfunction and bedridden status and possible functional quadriplegia. 1. Sepsis with multilobar bilateral healthcare-associated pneumonia versus questionable aspiration pneumonia. 2. Advanced Parkinson's disease and dementia with questionable behavioral disorder with episodic agitation. 3. Questionable multidrug-resistant Proteus mirabilis urinary tract infection. 4. Slow-resolving leukocytosis with granulocytosis. 5. Normocytic anemia with decreasing hemoglobin and hematocrit. 6. Insulin-requiring diabetes mellitus. 7. Severe feeding dysfunction and oropharyngeal dysphagia with placement of gastrostomy tube. 8. Neurogenic bladder with chronic indwelling Vega catheter. 9. Sacral decubitus ulceration. 10. Severe advanced Parkinson's disease and dementia. 11. Severe gait dysfunction and deconditioning and bedridden status and functional quadriplegia. 12. History of hypertension. 13. History of diabetes mellitus. 1. Sepsis with multilobar bilateral healthcare-associated pneumonia. 2. Sacral decubitus ulceration. 3. Hyperprocalcitoninemia. 4. Insulin-requiring diabetes mellitus. 5. Microscopic hematuria, pyuria, bacteriuria 6. Leukocytosis with granulocytosis. 7. Anemia with decreasing hemoglobin/hematocrit. 8. Mild hypoalbuminemia. 9. Severely advanced dementia and Parkinson disease. 10. Severe gait dysfunction and deconditioning and bedridden status with functional quadriplegia. 11. History of hypertension. 12. History of gait dysfunction. 1. High-grade fever. 2. Possible sepsis versus systemic inflammatory response syndrome. 3. Tachycardia. 4. Tachypnea. 5. Leukocytosis with granulocytosis. 6. Normocytic anemia. 7. Possible sepsis with multilobar bilateral aspiration pneumonia. 8. Bir-canjsui-vfjyuyvbs diabetes mellitus. 9. Microscopic hematuria, pyuria, bacteriuria and triple phosphate crystals. 10. Severe advanced dementia. 11. Severe advanced Parkinson's disease. 12. History of recurrent sepsis, pneumonia and urinary tract infection. 13. Sacral decubitus ulceration. 14. Feeding dysfunction with gastrostomy tube placement. 15. Speech dysfunction. 16. Multilobar bilateral possible aspiration pneumonia with a new left lower lobe pneumonia. 17. Sinus tachycardia. 18. Sepsis with pneumonia. 19. Feeding dysfunction. 20. Possible functional quadriplegia with bedridden status and severe gait dysfunction. 21. Severe advanced dementia. 22. Severe advanced Parkinson's disease. 23. History of hypertension. 24. Insulin-requiring diabetes mellitus. 25. History of tachycardia. 26. Chronic pain syndrome. 27. History of recurrent sepsis and aspiration pneumonia. 28. History of sacral decubitus ulceration, history of recurrent aspiration pneumonia. 29. History of feeding dysfunction. 30. History of dysarthria, speech dysfunction. 31. History of neurogenic bladder with urinary retention incontinence and chronic indwelling Vega catheter placement. 32. Upper and lower extremity flexion contractures. 33. History of methicillin-resistant Staphylococcus aureus nares. 34. Possible functional quadriplegia with severe deconditioning, gait dysfunction, bedridden status. 35. History of hypernatremia. 36. History of malnutrition and hypoalbuminemia. 37. Recurrent sacral decubitus ulceration, recurrent aspiration pneumonia. 38. History of prostatic hypertrophy, history of gait dysfunction. PLAN: At this time, the patient is to be continued on IV fluid, gastrostomy tube feeding, IV antibiotics as per the Infectious Disease. ADDENDUM TO IMPRESSION: Positive methicillin resistant Staphylococcus aureus nares. PLAN: At this time, the patient will be continued on therapeutic intervention as per the MAR of today which was reviewed. The patient is to be continued on broad-spectrum IV antibiotics as per Infectious Disease recommendation. The duration of IV antibiotics will be as per the Infectious Disease. The patient is to be continued on both GI, DVT prophylaxis. The patient has been ordered all the medications through the gastrostomy tube. The patient is on broad-spectrum IV antibiotics. The patient's overall prognosis is guarded to poor which has been explained to the patient's family on multiple occasions in the previous hospitalization and at the [facility]. Dictated and electronically signed, not read. Cameron Quinteros MD [id number]
--- NOTE | 2018-12-09 13:55 | CP.PCM.PN ---
<Marino Suarez - Last Filed: 12/09/18 13:56> Subjective - Date & Time of Evaluation Date of Evaluation: 12/09/18 Time of Evaluation: 06:40 - Subjective Subjective: Patient seen and examined at bedside. Patient seen with surgical team. Patient was able to open his eyes and communicate. No acute events overnight. - Head Exam Head Exam: ATRAUMATIC, NORMAL INSPECTION, NORMOCEPHALIC - ENT Exam ENT Exam: Mucous Membranes Dry - Respiratory Exam Respiratory Exam: absent: Clear to Ausculation Bilateral (congested) - Cardiovascular Exam Cardiovascular Exam: REGULAR RHYTHM, +S1, +S2 - GI/Abdominal Exam GI & Abdominal Exam: Soft - Extremities Exam Extremities Exam: Normal Inspection - Back Exam Additional comments: 5 x 8 cm stage IV sacral ulcer - Neurological Exam Neurological Exam: absent: Alert, Awake (eyes closed) - Psychiatric Exam Psychiatric exam: Normal Mood - Skin Skin Exam: Dry, Warm Additional comments: 5 x 8 cm stage IV sacral ulcer w/o eschar Objective - Vital Signs/Intake and Output Vital Signs (last 24 hours): Temp Pulse Resp BP Pulse Ox 97.0 F L 88 20 176/82 H 99 12/09/18 06:00 12/09/18 10:57 12/09/18 06:00 12/09/18 10:57 12/09/18 06:00 Intake and Output: 12/09/18 12/09/18 06:59 18:59 Intake Total 1380 Output Total 720 Balance 660 - Medications Medications: Current Medications Acetaminophen (Tylenol 325mg Tab) 650 mg PO Q6 PRN PRN Reason: TEMP>=99.5F Acetaminophen (Tylenol 650 Mg Supp) 650 mg RC Q6H PRN PRN Reason: TEMP>=99.5F Acetylcysteine (Acetylcysteine 20%) 4 ml IH [id number] [facility] Last Admin: 12/09/18 08:09 Dose: 4 ml Albuterol/Ipratropium (Duoneb 3 Mg/0.5 Mg (3 Ml) Ud) 3 ml IH [id number] [facility] Last Admin: 12/09/18 08:10 Dose: Not Given Albuterol/Ipratropium (Duoneb 3 Mg/0.5 Mg (3 Ml) Ud) 3 ml IH Q2H PRN PRN Reason: Shortness of Breath Ascorbic Acid (Vitamin C Liq) 500 mg PEG DAILY [facility] Last Admin: 12/09/18 10:55 Dose: 500 mg Aspirin (Aspirin Chewable) 81 mg PEG DAILY [facility] Last Admin: 12/09/18 10:54 Dose: 81 mg Carbidopa/Levodopa (Sinemet) 1 tab PEG 5XD [facility] Last Admin: 12/09/18 06:30 Dose: 1 tab Clonidine HCl (Catapres Tts1 0.1 Mg/24 Hr) 1 patch TD Q7D@1000 [facility] Last Admin: 12/06/18 11:05 Dose: 1 patch Doxycycline Hyclate (Doryx) 100 mg PO Q12 [facility]; Protocol Stop: 12/15/18 10:01 Last Admin: 12/09/18 10:54 Dose: 100 mg Enoxaparin Sodium (Lovenox) 40 mg SC DAILY [facility]; Protocol Last Admin: 12/09/18 10:53 Dose: 40 mg Furosemide (Lasix) 40 mg IVP ONCE PRN PRN Reason: Systolic Blood Pressure Last Admin: 12/08/18 14:35 Dose: 40 mg Meropenem (Merrem Iv 1 Gm Premix) 1 gm in 50 mls @ 100 mls/hr IVPB Q8 [facility]; Protocol Stop: 12/15/18 09:46 Last Admin: 12/09/18 06:30 Dose: 100 mls/hr Vancomycin HCl (Vancomycin 1gm) 1 gm in 250 mls @ 167 mls/hr IVPB Q12H [facility]; Protocol Stop: 12/15/18 09:46 Last Admin: 12/09/18 10:54 Dose: 167 mls/hr Lactated Ringer's (Lactated Ringer's) 1,000 mls @ 100 mls/hr IV .Q10H [facility] Last Admin: 12/09/18 00:30 Dose: 100 mls/hr Insulin Human Regular (Humulin R Low) 0 units SC Q6 [facility]; Protocol Last Admin: 12/09/18 00:00 Dose: Not Given Levalbuterol HCl (Xopenex) 0.63 mg IH [id number] [facility] Last Admin: 12/09/18 08:09 Dose: 0.63 mg Metoprolol Tartrate (Lopressor) 50 mg PEG Q8H [facility] Last Admin: 12/09/18 10:57 Dose: 50 mg Mirtazapine (Remeron) 15 mg PEG HS [facility] Last Admin: 12/08/18 22:10 Dose: 15 mg Multivitamins/Vitamin C (Multi-Delyn Liquid) 15 ml PEG 0800 [facility] Last Admin: 12/09/18 10:54 Dose: 15 ml Mupirocin (Bactroban Ointment) 0 gm NS BID [facility] Stop: 12/11/18 10:01 Last Admin: 12/09/18 10:56 Dose: 2 applic Nitroglycerin (Nitro-Bid 2% Oint) 1 ea TOP Q6 [facility] Last Admin: 12/09/18 11:08 Dose: 1 ea Ondansetron HCl (Zofran Inj) 4 mg IVP Q4H PRN PRN Reason: Nausea/Vomiting Pantoprazole Sodium (Protonix Inj) 40 mg IV DAILY [facility] Last Admin: 12/09/18 10:54 Dose: 40 mg Silver Sulfadiazine (Silvadene 1% 25 Gm) 0 gm TP DAILY [facility] Last Admin: 12/09/18 11:12 Dose: 25 gm Tramadol HCl (Ultram) 50 mg GT Q12H PRN PRN Reason: Pain, moderate (4-7) - Labs Labs: 12/09/18 06:30 12/09/18 06:30 Assessment and Plan - Assessment and Plan (Free Text) Assessment: 83 M with history of DM, and hypertension presenting with sepsis secondary to bilateral HAP and infected sacral ulcer. Sepsis secondary to bilateral HAP and infected sacral ulcer. -continue with IVF -Continue with Vanc, Merrem, doxycycline day 4 -Urine culture shows proteus mirabalis Sacral wound Stage IV -Continue with Silvadene -wet to dry dressing -wound cultures sent Hypertension -Continue clonidine -Continue lopressor DM -ISS-low GI/DVT ppx -Protonix/Lovenox <Cameron Quinteros U - Last Filed: 12/16/18 16:00> Objective - Vital Signs/Intake and Output Vital Signs (last 24 hours): Temp Pulse Resp BP Pulse Ox 98.2 F 82 20 143/70 100 12/15/18 12:00 12/15/18 12:00 12/15/18 12:00 12/15/18 12:00 12/15/18 12:00 - Labs Labs: 12/12/18 08:00 12/12/18 08:00 Attending/Attestation - Attestation I have personally seen and examined this patient.: Yes I have fully participated in the care of the patient.: Yes I have reviewed all pertinent clinical information, including history, physical exam and plan: Yes Notes (Text): Please see/read my dictated notes.
--- NOTE | 2018-12-09 18:26 | CP.PCM.PN ---
Subjective - Date & Time of Evaluation Date of Evaluation: 12/09/18 Time of Evaluation: 09:35 - Subjective Subjective: Comfortable in bed, no acute events overnight, no fevers overnight. Objective - Vital Signs/Intake and Output Vital Signs (last 24 hours): Temp Pulse Resp BP Pulse Ox 98.4 F 85 18 165/83 H 99 12/09/18 12:00 12/09/18 12:00 12/09/18 12:00 12/09/18 12:00 12/09/18 06:00 Intake and Output: 12/09/18 12/09/18 06:59 18:59 Intake Total 1380 Output Total 720 Balance 660 - Medications Medications: Current Medications Acetaminophen (Tylenol 325mg Tab) 650 mg PO Q6 PRN PRN Reason: TEMP>=99.5F Acetaminophen (Tylenol 650 Mg Supp) 650 mg RC Q6H PRN PRN Reason: TEMP>=99.5F Acetylcysteine (Acetylcysteine 20%) 4 ml [facility] [id number] [facility] Last Admin: 12/09/18 13:59 Dose: 4 ml Albuterol/Ipratropium (Duoneb 3 Mg/0.5 Mg (3 Ml) Ud) 3 ml [facility]H [id number] [facility] Last Admin: 12/09/18 14:00 Dose: Not Given Albuterol/Ipratropium (Duoneb 3 Mg/0.5 Mg (3 Ml) Ud) 3 ml IH Q2H PRN PRN Reason: Shortness of Breath Ascorbic Acid (Vitamin C Liq) 500 mg PEG DAILY [facility] Last Admin: 12/09/18 10:55 Dose: 500 mg Aspirin (Aspirin Chewable) 81 mg PEG DAILY [facility] Last Admin: 12/09/18 10:54 Dose: 81 mg Carbidopa/Levodopa (Sinemet) 1 tab PEG 5XD [facility] Last Admin: 12/09/18 14:00 Dose: 1 tab Clonidine HCl (Catapres Tts1 0.1 Mg/24 Hr) 1 patch TD Q7D@1000 [facility] Last Admin: 12/06/18 11:05 Dose: 1 patch Doxycycline Hyclate (Doryx) 100 mg PO Q12 [facility]; Protocol Stop: 12/15/18 10:01 Last Admin: 12/09/18 10:54 Dose: 100 mg Enoxaparin Sodium (Lovenox) 40 mg SC DAILY [facility]; Protocol Last Admin: 12/09/18 10:53 Dose: 40 mg Furosemide (Lasix) 40 mg IVP ONCE PRN PRN Reason: Systolic Blood Pressure Last Admin: 12/08/18 14:35 Dose: 40 mg Meropenem (Merrem Iv 1 Gm Premix) 1 gm in 50 mls @ 100 mls/hr IVPB Q8 [facility]; Protocol Stop: 12/15/18 09:46 Last Admin: 12/09/18 14:00 Dose: 100 mls/hr Vancomycin HCl (Vancomycin 1gm) 1 gm in 250 mls @ 167 mls/hr IVPB Q12H [facility]; Protocol Stop: 12/15/18 09:46 Last Admin: 12/09/18 10:54 Dose: 167 mls/hr Lactated Ringer's (Lactated Ringer's) 1,000 mls @ 100 mls/hr IV .Q10H [facility] Last Admin: 12/09/18 00:30 Dose: 100 mls/hr Insulin Human Regular (Humulin R Low) 0 units SC Q6 [facility]; Protocol Last Admin: 12/09/18 12:30 Dose: Not Given Levalbuterol HCl (Xopenex) 0.63 mg IH [id number] [facility] Last Admin: 12/09/18 14:00 Dose: 0.63 mg Metoprolol Tartrate (Lopressor) 50 mg PEG Q8H [facility] Last Admin: 12/09/18 10:57 Dose: 50 mg Mirtazapine (Remeron) 15 mg PEG HS [facility] Last Admin: 12/08/18 22:10 Dose: 15 mg Multivitamins/Vitamin C (Multi-Delyn Liquid) 15 ml PEG 0800 [facility] Last Admin: 12/09/18 10:54 Dose: 15 ml Mupirocin (Bactroban Ointment) 0 gm NS BID [facility] Stop: 12/11/18 10:01 Last Admin: 12/09/18 10:56 Dose: 2 applic Nitroglycerin (Nitro-Bid 2% Oint) 1 ea TOP Q6 [facility] Last Admin: 12/09/18 11:08 Dose: 1 ea Ondansetron HCl (Zofran Inj) 4 mg IVP Q4H PRN PRN Reason: Nausea/Vomiting Pantoprazole Sodium (Protonix Inj) 40 mg IV DAILY [facility] Last Admin: 12/09/18 10:54 Dose: 40 mg Silver Sulfadiazine (Silvadene 1% 25 Gm) 0 gm TP DAILY [facility] Last Admin: 12/09/18 11:12 Dose: 25 gm Tramadol HCl (Ultram) 50 mg GT Q12H PRN PRN Reason: Pain, moderate (4-7) - Labs Labs: 12/09/18 06:30 12/09/18 06:30 - Constitutional Appears: Chronically Ill - Head Exam Head Exam: NORMAL INSPECTION - Respiratory Exam Respiratory Exam: Decreased Breath Sounds - Cardiovascular Exam Cardiovascular Exam: +S1, +S2 - GI/Abdominal Exam GI & Abdominal Exam: Soft. absent: Tenderness Assessment and Plan - Assessment and Plan (Free Text) Plan: Assessment sepsis due to bilateral HCAP, infected sacral ulcer S/P sepsis due to aspiration pneumonia in this patient with fecal impaction (S/P disimpaction), less likely bowel obstruction S/P [place] gastrostomy tube placement - air under diaphragm noted on CT A/P probably related to the gastrostomy tube placement (as discussed with Dr. Ball) DM HTN history of UTI's Plan continue Vancomycin, Merrem and Doxycycline day 4 pending blood and wound cx results; urine cx showing multidrug-resistant Proteus follow up further plans of Surgery will continue to monitor clinically overall prognosis is poor
[2018-12-10] MEDS: Nitroglycerin 2% Ointment Foilpak UD TOP SCH ×4 (00:35→18:55)
[2018-12-10] MEDS: Insulin Reg-LOW-Coverage SC SCH ×3 (01:02→18:55)
[2018-12-10] MEDS: Acetylcysteine 20% Inhal Soln (4ml) IH SCH ×4 (04:27→19:44)
[2018-12-10] MEDS: Lactated Ringer's 1,000 ML IV SCH (04:30)
[2018-12-10] MEDS: Albuterol-Ipratrop 3 mg / 0.5 (3 ml) UD IH SCH ×4 (04:32→19:44)
[2018-12-10] MEDS: Carbidopa/Levodopa 25/250 PEG SCH ×5 (05:41→22:34)
[2018-12-10] MEDS: Meropenem IV 1 gm in NS 1 GM/50 ML BAG IVPB SCH ×3 (05:41→22:33)
[2018-12-10 07:14] LABS: BASO # 0.03 K/mm3 (0.0-2.0); BASO % 0.3 % (0.0-3.0); EOS # 0.5 (0.0-0.7); EOS % 4.5 % (1.5-5.0); GRAN # 7.16 (1.4-6.5); GRAN % 63.6 % (50.0-68.0); HEMOGLOBIN 12.1 g/dL (14.0-18.0); LYMPH # 2.7 (1.2-3.4); LYMPH % 24.3 % (22.0-35.0); MEAN CELL VOLUME 80.8 fl (80.0-105.0); MEAN CORPUSCULAR HEMOGLOBIN 25.2 pg (25.0-35.0); MEAN CORPUSCULAR HGB CONC 31.2 g/dl (31.0-37.0); MEAN PLATELET VOLUME 8.7 fl (7.0-11.0); MONO # 0.8 (0.1-0.6); MONO % 7.3 % (1.0-6.0); RBC 4.8 10^6/uL (3.5-6.1); RED CELL DISTRIBUTION WIDTH 17.4 % (11.5-14.5); WHITE BLOOD COUNT 11.3 10^3/uL (4.5-11.0)
[2018-12-10 07:41] LABS: ALB/GLOB RATIO 0.7 (1.1-1.8); ALBUMIN 3.4 g/dL (3.0-4.8); ALT/SGPT 16 U/L (7-56); AST/SGOT 29 U/L (17-59); BILIRUBIN,DIRECT 0.2 mg/dL (0.0-0.4); BLOOD UREA NITROGEN 13 mg/dL (7-21); CALCIUM 9.7 mg/dL (8.4-10.5); GFR NON-AFRICAN AMERICAN > 60
--- NOTE | 2018-12-10 07:47 | CP.PCM.PN ---
Subjective - Date & Time of Evaluation Date of Evaluation: 12/10/18 Time of Evaluation: 07:10 - Subjective Subjective: Surgery progress note Patient seen and examined at bedside. No acute events overnight. Objective - Vital Signs/Intake and Output Vital Signs (last 24 hours): Temp Pulse Resp BP Pulse Ox 97.2 F L 74 18 147/64 100 12/10/18 06:00 12/10/18 06:00 12/10/18 06:00 12/10/18 06:00 12/10/18 06:00 Intake and Output: 12/10/18 12/10/18 06:59 18:59 Intake Total 1650 Output Total 1600 Balance 50 - Medications Medications: Current Medications Acetaminophen (Tylenol 325mg Tab) 650 mg PO Q6 PRN PRN Reason: TEMP>=99.5F Acetaminophen (Tylenol 650 Mg Supp) 650 mg RC Q6H PRN PRN Reason: TEMP>=99.5F Acetylcysteine (Acetylcysteine 20%) 4 ml IH [id number] [facility] Last Admin: 12/10/18 04:27 Dose: 4 ml Albuterol/Ipratropium (Duoneb 3 Mg/0.5 Mg (3 Ml) Ud) 3 ml IH [id number] [facility] Last Admin: 12/10/18 04:32 Dose: 3 ml Albuterol/Ipratropium (Duoneb 3 Mg/0.5 Mg (3 Ml) Ud) 3 ml IH Q2H PRN PRN Reason: Shortness of Breath Ascorbic Acid (Vitamin C Liq) 500 mg PEG DAILY [facility] Last Admin: 12/09/18 10:55 Dose: 500 mg Aspirin (Aspirin Chewable) 81 mg PEG DAILY [facility] Last Admin: 12/09/18 10:54 Dose: 81 mg Carbidopa/Levodopa (Sinemet) 1 tab PEG 5XD [facility] Last Admin: 12/10/18 05:41 Dose: 1 tab Clonidine HCl (Catapres Tts1 0.1 Mg/24 Hr) 1 patch TD Q7D@1000 [facility] Last Admin: 12/06/18 11:05 Dose: 1 patch Doxycycline Hyclate (Doryx) 100 mg PO Q12 [facility]; Protocol Stop: 12/15/18 10:01 Last Admin: 12/09/18 21:35 Dose: 100 mg Enoxaparin Sodium (Lovenox) 40 mg SC DAILY [facility]; Protocol Last Admin: 12/09/18 10:53 Dose: 40 mg Furosemide (Lasix) 40 mg IVP ONCE PRN PRN Reason: Systolic Blood Pressure Last Admin: 12/08/18 14:35 Dose: 40 mg Meropenem (Merrem Iv 1 Gm Premix) 1 gm in 50 mls @ 100 mls/hr IVPB Q8 [facility]; Protocol Stop: 12/15/18 09:46 Last Admin: 12/10/18 05:41 Dose: 100 mls/hr Vancomycin HCl (Vancomycin 1gm) 1 gm in 250 mls @ 167 mls/hr IVPB Q12H [facility]; Protocol Stop: 12/15/18 09:46 Last Admin: 12/09/18 21:36 Dose: 167 mls/hr Lactated Ringer's (Lactated Ringer's) 1,000 mls @ 100 mls/hr IV .Q10H [facility] Last Admin: 12/10/18 04:30 Dose: 100 mls/hr Insulin Human Regular (Humulin R Low) 0 units SC Q6 [facility]; Protocol Last Admin: 12/10/18 06:56 Dose: Not Given Levalbuterol HCl (Xopenex) 0.63 mg IH [id number] [facility] Last Admin: 12/09/18 21:22 Dose: 0.63 mg Metoprolol Tartrate (Lopressor) 50 mg PEG Q8H [facility] Last Admin: 12/10/18 01:58 Dose: 50 mg Mirtazapine (Remeron) 15 mg PEG HS [facility] Last Admin: 12/09/18 21:35 Dose: 15 mg Multivitamins/Vitamin C (Multi-Delyn Liquid) 15 ml PEG 0800 [facility] Last Admin: 12/09/18 10:54 Dose: 15 ml Mupirocin (Bactroban Ointment) 0 gm NS BID [facility] Stop: 12/11/18 10:01 Last Admin: 12/09/18 18:26 Dose: 2 applic Nitroglycerin (Nitro-Bid 2% Oint) 1 ea TOP Q6 [facility] Last Admin: 12/10/18 05:41 Dose: 1 ea Ondansetron HCl (Zofran Inj) 4 mg IVP Q4H PRN PRN Reason: Nausea/Vomiting Pantoprazole Sodium (Protonix Inj) 40 mg IV DAILY [facility] Last Admin: 12/09/18 10:54 Dose: 40 mg Silver Sulfadiazine (Silvadene 1% 25 Gm) 0 gm TP DAILY [facility] Last Admin: 12/09/18 11:12 Dose: 25 gm Tramadol HCl (Ultram) 50 mg GT Q12H PRN PRN Reason: Pain, moderate (4-7) Last Admin: 12/09/18 19:57 Dose: 50 mg - Labs Labs: 12/09/18 06:30 12/10/18 06:45 - Additional Findings Additional findings: - Head Exam Head Exam: ATRAUMATIC, NORMAL INSPECTION, NORMOCEPHALIC - ENT Exam ENT Exam: Mucous Membranes Dry - Respiratory Exam Respiratory Exam: absent: Clear to Ausculation Bilateral (congested) - Cardiovascular Exam Cardiovascular Exam: REGULAR RHYTHM, +S1, +S2 - GI/Abdominal Exam GI & Abdominal Exam: Soft - Extremities Exam Extremities Exam: Normal Inspection - Back Exam Additional comments: 5 x 8 cm stage IV sacral ulcer - Neurological Exam Neurological Exam: absent: Alert, Awake (eyes closed) - Psychiatric Exam Psychiatric exam: Normal Mood - Skin Skin Exam: Dry, Warm Additional comments: 5 x 8 cm stage IV sacral ulcer w/o eschar Assessment and Plan - Assessment and Plan (Free Text) Assessment: 83 y/o male admitted for PNA. Found to have leakage around G-tube and stage IV sacral decubitus ulcer with no signs of infections Sacral decubitus ulcer stage IV Cholelithiasis Pneumonia HTN DM2 Dementia Parkinson's disease Plan: -replace G-tube bumper -sacral wound care -air mattress, repositioning q2h -no surgical interventions at this time -further recs per attending Dr. Darian Cerna DO
[2018-12-10] MEDS: Levalbuterol 0.63 MG/3 ML Inhal Soln UD IH SCH ×3 (07:57→19:44)
--- NOTE | 2018-12-10 10:18 | PN ---
DATE: 12/10/2018 LOCATION: The patient is in still isolation 266, bed 2. SUBJECTIVE: Overnight nurse's notes were reviewed. No adverse events were documented, reported or notified. OBJECTIVE: VITAL SIGNS: T-max 97.2, heart rate 74, blood pressure 147/64, respirations 18, O2 sat 100%. GENERAL: The patient is lying in the bed. The patient is lethargic but responsive to painful stimuli. With eyes closed. HEENT: Head: Normocephalic, atraumatic. HEENT examination shows pinkish pale conjunctivae. Anicteric sclerae, dry oral mucosa. NECK: No neck rigidity. CHEST: Kyphosis. LUNGS: Shows positive rhonchi, creps bilaterally. No crackles, rales or wheezing noted. CARDIOVASCULAR: S1, S2, regular rhythm. Questionable systolic murmur left sternal border, right second intercostal space, left second intercostal space. ABDOMEN: Soft. Positive bowel sound, positive gastrostomy tube noted. Positive dressing noted. GENITALIA: Male. Positive Vega catheter noted. MUSCULOSKELETAL: Positive Multi Podus boot noted. VASCULAR: Palpable pulses. NEUROLOGIC: The patient is lethargic but responsive to painful stimuli and loud verbal stimuli. GAIT: Bedridden. Positive sacral decubitus ulceration is noted as per the nurse's notes. No pitting edema noted of the lower extremity. MUSCULOSKELETAL: Shows a decreased body mass index. DIAGNOSTICS: Fingerstick blood sugar 122, 128, 109, 122. WBC 11.3, hemoglobin/hematocrit 12.1, 38.8, platelet 474. Sodium 140, potassium 3.9, chloride 103, CO2 31, BUN 13, creatinine 0.6, glucose 127, calcium 9.7, phosphorus 3.1, magnesium 2.0. LFTs are within normal limit. IMPRESSION AND PLAN: 1. Sepsis. 2. Multilobar bilateral healthcare-associated aspiration pneumonia. 3. Stage IV sacral decubitus ulceration. 4. Normocytic anemia with decreasing hemoglobin/hematocrit. 5. Status post packed red blood cell transfusion x1. 6. Leukocytosis with granulocytosis. 7. Reactive thrombocytosis. 8. Insulin-requiring diabetes mellitus. 9. Feeding dysfunction with gastrostomy tube placement. 10. Neurogenic bladder with Vega catheter placement. 11. Severe gait dysfunction, bedridden status and severe deconditioning and possible functional quadriplegia. 12. Severe advanced dementia and severe advanced Parkinson disease. 1. Sepsis with multilobar bilateral healthcare-associated possible aspiration pneumonia. 2. Sacral decubitus ulceration. 3. Proteus mirabilis urinary tract infection. 4. Normocytic anemia with decreasing hemoglobin/hematocrit. 5. Status post packed red blood cell transfusion x1. 6. Advanced Parkinson disease and parkinsonism with severely advanced dementia. 7. Hypertension. 8. Feeding dysfunction with gastrostomy tube placement. 9. Voiding dysfunction with neurogenic bladder requiring Vega catheter dependent. 10. Severe gait dysfunction and bedridden status and possible functional quadriplegia. 1. Sepsis with multilobar bilateral healthcare-associated pneumonia versus questionable aspiration pneumonia. 2. Advanced Parkinson's disease and dementia with questionable behavioral disorder with episodic agitation. 3. Questionable multidrug-resistant Proteus mirabilis urinary tract infection. 4. Slow-resolving leukocytosis with granulocytosis. 5. Normocytic anemia with decreasing hemoglobin and hematocrit. 6. Insulin-requiring diabetes mellitus. 7. Severe feeding dysfunction and oropharyngeal dysphagia with placement of gastrostomy tube. 8. Neurogenic bladder with chronic indwelling Vega catheter. 9. Sacral decubitus ulceration. 10. Severe advanced Parkinson's disease and dementia. 11. Severe gait dysfunction and deconditioning and bedridden status and functional quadriplegia. 12. History of hypertension. 13. History of diabetes mellitus. 1. Sepsis with multilobar bilateral healthcare-associated pneumonia. 2. Sacral decubitus ulceration. 3. Hyperprocalcitoninemia. 4. Insulin-requiring diabetes mellitus. 5. Microscopic hematuria, pyuria, bacteriuria 6. Leukocytosis with granulocytosis. 7. Anemia with decreasing hemoglobin/hematocrit. 8. Mild hypoalbuminemia. 9. Severely advanced dementia and Parkinson disease. 10. Severe gait dysfunction and deconditioning and bedridden status with functional quadriplegia. 11. History of hypertension. 12. History of gait dysfunction. 1. High-grade fever. 2. Possible sepsis versus systemic inflammatory response syndrome. 3. Tachycardia. 4. Tachypnea. 5. Leukocytosis with granulocytosis. 6. Normocytic anemia. 7. Possible sepsis with multilobar bilateral aspiration pneumonia. 8. [id number] diabetes mellitus. 9. Microscopic hematuria, pyuria, bacteriuria and triple phosphate crystals. 10. Severe advanced dementia. 11. Severe advanced Parkinson's disease. 12. History of recurrent sepsis, pneumonia and urinary tract infection. 13. Sacral decubitus ulceration. 14. Feeding dysfunction with gastrostomy tube placement. 15. Speech dysfunction. 16. Multilobar bilateral possible aspiration pneumonia with a new left lower lobe pneumonia. 17. Sinus tachycardia. 18. Sepsis with pneumonia. 19. Feeding dysfunction. 20. Possible functional quadriplegia with bedridden status and severe gait dysfunction. 21. Severe advanced dementia. 22. Severe advanced Parkinson's disease. 23. History of hypertension. 24. Insulin-requiring diabetes mellitus. 25. History of tachycardia. 26. Chronic pain syndrome. 27. History of recurrent sepsis and aspiration pneumonia. 28. History of sacral decubitus ulceration, history of recurrent aspiration pneumonia. 29. History of feeding dysfunction. 30. History of dysarthria, speech dysfunction. 31. History of neurogenic bladder with urinary retention incontinence and chronic indwelling Vega catheter placement. 32. Upper and lower extremity flexion contractures. 33. History of methicillin-resistant Staphylococcus aureus nares. 34. Possible functional quadriplegia with severe deconditioning, gait dysfunction, bedridden status. 35. History of hypernatremia. 36. History of malnutrition and hypoalbuminemia. 37. Recurrent sacral decubitus ulceration, recurrent aspiration pneumonia. 38. History of prostatic hypertrophy, history of gait dysfunction. PLAN: At this time, the patient is to be continued on IV intravenous antibiotic as per Infectious Disease recommendation. Their recommendations are noted and recommend to continue IV meropenem, IV vancomycin. At present, the patient will be continued on all the medications as per the MAR of today which was reviewed. The patient's further discharge disposition is as per the duration of the IV antibiotics as per recommended by Infectious Disease. Overall prognosis is guarded to poor. Dictated and electronically signed, not read. Cameron Quinteros MD EPI
[2018-12-10] MEDS: Vancomycin 1gm in NS 250ml 1 GM/250 ML BAG IVPB SCH ×2 (10:43→22:34)
[2018-12-10] MEDS: Enoxaparin 40 mg Syringe SC SCH (10:47)
[2018-12-10] MEDS: Mupirocin 2% Ointment 15 GM TUBE NS SCH ×2 (10:48→18:56)
[2018-12-10] MEDS: Silver Sulfadiazine 1% Cream (25 gm) TP SCH (10:49)
[2018-12-10] MEDS: Multi Vitamins 15 mL UD Oral Solution PEG SCH (10:58)
[2018-12-10] MEDS: Ascorbic Acid 500 mg/5 ml Liq(50 ml) PEG SCH (10:59)
--- NOTE | 2018-12-10 15:30 | CP.PCM.PN ---
Subjective - Date & Time of Evaluation Date of Evaluation: 12/10/18 Time of Evaluation: 10:20 - Subjective Subjective: No acute events overnight, not in distress, no fevers. Objective - Vital Signs/Intake and Output Vital Signs (last 24 hours): Temp Pulse Resp BP Pulse Ox 98.4 F 85 18 165/83 H 99 12/09/18 12:00 12/09/18 12:00 12/09/18 12:00 12/09/18 12:00 12/09/18 06:00 Intake and Output: 12/09/18 12/09/18 06:59 18:59 Intake Total 1380 Output Total 720 Balance 660 - Medications Medications: Current Medications Acetaminophen (Tylenol 325mg Tab) 650 mg PO Q6 PRN PRN Reason: TEMP>=99.5F Acetaminophen (Tylenol 650 Mg Supp) 650 mg RC Q6H PRN PRN Reason: TEMP>=99.5F Acetylcysteine (Acetylcysteine 20%) 4 ml IH [id number] [facility] Last Admin: 12/09/18 13:59 Dose: 4 ml Albuterol/Ipratropium (Duoneb 3 Mg/0.5 Mg (3 Ml) Ud) 3 ml IH [id number] [facility] Last Admin: 12/09/18 14:00 Dose: Not Given Albuterol/Ipratropium (Duoneb 3 Mg/0.5 Mg (3 Ml) Ud) 3 ml IH Q2H PRN PRN Reason: Shortness of Breath Ascorbic Acid (Vitamin C Liq) 500 mg PEG DAILY [facility] Last Admin: 12/09/18 10:55 Dose: 500 mg Aspirin (Aspirin Chewable) 81 mg PEG DAILY [facility] Last Admin: 12/09/18 10:54 Dose: 81 mg Carbidopa/Levodopa (Sinemet) 1 tab PEG 5XD [facility] Last Admin: 12/09/18 14:00 Dose: 1 tab Clonidine HCl (Catapres Tts1 0.1 Mg/24 Hr) 1 patch TD Q7D@1000 [facility] Last Admin: 12/06/18 11:05 Dose: 1 patch Doxycycline Hyclate (Doryx) 100 mg PO Q12 [facility]; Protocol Stop: 12/15/18 10:01 Last Admin: 12/09/18 10:54 Dose: 100 mg Enoxaparin Sodium (Lovenox) 40 mg SC DAILY [facility]; Protocol Last Admin: 12/09/18 10:53 Dose: 40 mg Furosemide (Lasix) 40 mg IVP ONCE PRN PRN Reason: Systolic Blood Pressure Last Admin: 12/08/18 14:35 Dose: 40 mg Meropenem (Merrem Iv 1 Gm Premix) 1 gm in 50 mls @ 100 mls/hr IVPB Q8 [facility]; Protocol Stop: 12/15/18 09:46 Last Admin: 12/09/18 14:00 Dose: 100 mls/hr Vancomycin HCl (Vancomycin 1gm) 1 gm in 250 mls @ 167 mls/hr IVPB Q12H [facility]; Protocol Stop: 12/15/18 09:46 Last Admin: 12/09/18 10:54 Dose: 167 mls/hr Lactated Ringer's (Lactated Ringer's) 1,000 mls @ 100 mls/hr IV .Q10H [facility] Last Admin: 12/09/18 00:30 Dose: 100 mls/hr Insulin Human Regular (Humulin R Low) 0 units SC Q6 [facility]; Protocol Last Admin: 12/09/18 18:25 Dose: Not Given Levalbuterol HCl (Xopenex) 0.63 mg IH [id number] [facility] Last Admin: 12/09/18 14:00 Dose: 0.63 mg Metoprolol Tartrate (Lopressor) 50 mg PEG Q8H [facility] Last Admin: 12/09/18 10:57 Dose: 50 mg Mirtazapine (Remeron) 15 mg PEG HS [facility] Last Admin: 12/08/18 22:10 Dose: 15 mg Multivitamins/Vitamin C (Multi-Delyn Liquid) 15 ml PEG 0800 [facility] Last Admin: 12/09/18 10:54 Dose: 15 ml Mupirocin (Bactroban Ointment) 0 gm NS BID [facility] Stop: 12/11/18 10:01 Last Admin: 12/09/18 10:56 Dose: 2 applic Nitroglycerin (Nitro-Bid 2% Oint) 1 ea TOP Q6 [facility] Last Admin: 12/09/18 11:08 Dose: 1 ea Ondansetron HCl (Zofran Inj) 4 mg IVP Q4H PRN PRN Reason: Nausea/Vomiting Pantoprazole Sodium (Protonix Inj) 40 mg IV DAILY [facility] Last Admin: 12/09/18 10:54 Dose: 40 mg Silver Sulfadiazine (Silvadene 1% 25 Gm) 0 gm TP DAILY [facility] Last Admin: 12/09/18 11:12 Dose: 25 gm Tramadol HCl (Ultram) 50 mg GT Q12H PRN PRN Reason: Pain, moderate (4-7) - Labs Labs: 12/09/18 06:30 12/09/18 06:30 - Constitutional Appears: Chronically Ill - Head Exam Head Exam: NORMAL INSPECTION - Respiratory Exam Respiratory Exam: Decreased Breath Sounds - Cardiovascular Exam Cardiovascular Exam: +S1, +S2 - GI/Abdominal Exam GI & Abdominal Exam: Soft. absent: Tenderness Assessment and Plan - Assessment and Plan (Free Text) Plan: Assessment sepsis due to bilateral HCAP, infected sacral ulcer S/P sepsis due to aspiration pneumonia in this patient with fecal impaction (S/P disimpaction), less likely bowel obstruction S/P [place] gastrostomy tube placement - air under diaphragm noted on CT A/P probably related to the gastrostomy tube placement (as discussed with Dr. Ball) DM HTN history of UTI's Plan continue Vancomycin, Merrem and Doxycycline day 5 pending blood and wound cx results; urine cx showing multidrug-resistant Proteus; target up to 7 days of antibiotics - sacral ulcer cultures are negative so far follow up further plans of Surgery will continue to monitor clinically overall prognosis is poor
[2018-12-11] MEDS: Insulin Reg-LOW-Coverage SC SCH ×3 (01:53→18:57)
[2018-12-11] MEDS: Nitroglycerin 2% Ointment Foilpak UD TOP SCH ×4 (01:57→18:58)
[2018-12-11] MEDS: Acetylcysteine 20% Inhal Soln (4ml) IH SCH ×4 (02:49→19:31)
[2018-12-11] MEDS: Albuterol-Ipratrop 3 mg / 0.5 (3 ml) UD IH SCH ×2 (02:50→07:59)
[2018-12-11] MEDS: Levalbuterol 0.63 MG/3 ML Inhal Soln UD IH SCH ×4 (02:55→19:32)
[2018-12-11] MEDS: Carbidopa/Levodopa 25/250 PEG SCH ×5 (05:50→21:38)
[2018-12-11] MEDS: Meropenem IV 1 gm in NS 1 GM/50 ML BAG IVPB SCH ×2 (05:51→21:31)
[2018-12-11] MEDS: Lactated Ringer's 1,000 ML IV SCH ×3 (06:20→12:24)
[2018-12-11 07:42] LABS: BASO # 0.02 K/mm3 (0.0-2.0); BASO % 0.2 % (0.0-3.0); EOS # 0.5 (0.0-0.7); EOS % 5.9 % (1.5-5.0); GRAN # 5.24 (1.4-6.5); GRAN % 62.2 % (50.0-68.0); LYMPH # 1.9 (1.2-3.4); LYMPH % 22.7 % (22.0-35.0); MEAN CELL VOLUME 81.4 fl (80.0-105.0); MEAN CORPUSCULAR HEMOGLOBIN 24.7 pg (25.0-35.0); MEAN CORPUSCULAR HGB CONC 30.4 g/dl (31.0-37.0); MEAN PLATELET VOLUME 8.1 fl (7.0-11.0); MONO # 0.8 (0.1-0.6); RBC 3.92 10^6/uL (3.5-6.1); RED CELL DISTRIBUTION WIDTH 17.4 % (11.5-14.5); WHITE BLOOD COUNT 8.4 10^3/uL (4.5-11.0)
[2018-12-11 07:53] LABS: HEMOGLOBIN 9.7 g/dL (14.0-18.0)
[2018-12-11 08:06] LABS: ALB/GLOB RATIO 0.7 (1.1-1.8); ALBUMIN 2.8 g/dL (3.0-4.8); ALT/SGPT 18 U/L (7-56); AST/SGOT 34 U/L (17-59); BILIRUBIN,DIRECT 0.2 mg/dL (0.0-0.4); BLOOD UREA NITROGEN 15 mg/dL (7-21); CALCIUM 9.3 mg/dL (8.4-10.5); GFR NON-AFRICAN AMERICAN > 60
--- NOTE | 2018-12-11 09:21 | CP.PCM.PN ---
Subjective - Date & Time of Evaluation Date of Evaluation: 12/11/18 Time of Evaluation: 09:18 - Subjective Subjective: Surgery progress note- Dr. Farmer (Covering for Dr. Ball) Patient seen and examined at bedside. No acute events overnight. remains aphasic. G-tube no longer leaking, receiving tube feeds Objective - Vital Signs/Intake and Output Vital Signs (last 24 hours): Temp Pulse Resp BP Pulse Ox 97.0 F L 78 20 168/72 H 96 12/11/18 00:01 12/11/18 02:14 12/11/18 00:01 12/11/18 02:14 12/11/18 00:01 Intake and Output: 12/11/18 12/11/18 06:59 18:59 Output Total 1200 Balance -1200 - Medications Medications: Current Medications Acetaminophen (Tylenol 325mg Tab) 650 mg PO Q6 PRN PRN Reason: TEMP>=99.5F Acetaminophen (Tylenol 650 Mg Supp) 650 mg RC Q6H PRN PRN Reason: TEMP>=99.5F Acetylcysteine (Acetylcysteine 20%) 4 ml IH [id number] [facility] Last Admin: 12/11/18 07:59 Dose: 4 ml Albuterol/Ipratropium (Duoneb 3 Mg/0.5 Mg (3 Ml) Ud) 3 ml IH [id number] [facility] Last Admin: 12/11/18 07:59 Dose: 3 ml Albuterol/Ipratropium (Duoneb 3 Mg/0.5 Mg (3 Ml) Ud) 3 ml IH Q2H PRN PRN Reason: Shortness of Breath Ascorbic Acid (Vitamin C Liq) 500 mg PEG DAILY [facility] Last Admin: 12/10/18 10:59 Dose: 500 mg Aspirin (Aspirin Chewable) 81 mg PEG DAILY [facility] Last Admin: 12/10/18 10:47 Dose: 81 mg Carbidopa/Levodopa (Sinemet) 1 tab PEG 5XD [facility] Last Admin: 12/11/18 05:50 Dose: 1 tab Clonidine HCl (Catapres Tts1 0.1 Mg/24 Hr) 1 patch TD Q7D@1000 [facility] Last Admin: 12/06/18 11:05 Dose: 1 patch Doxycycline Hyclate (Doryx) 100 mg PO Q12 [facility]; Protocol Stop: 12/15/18 10:01 Last Admin: 12/10/18 22:33 Dose: 100 mg Enoxaparin Sodium (Lovenox) 40 mg SC DAILY [facility]; Protocol Last Admin: 12/10/18 10:47 Dose: 40 mg Furosemide (Lasix) 40 mg IVP ONCE PRN PRN Reason: Systolic Blood Pressure Last Admin: 12/08/18 14:35 Dose: 40 mg Meropenem (Merrem Iv 1 Gm Premix) 1 gm in 50 mls @ 100 mls/hr IVPB Q8 [facility]; Protocol Stop: 12/15/18 09:46 Last Admin: 12/11/18 05:51 Dose: 100 mls/hr Vancomycin HCl (Vancomycin 1gm) 1 gm in 250 mls @ 167 mls/hr IVPB Q12H [facility]; Protocol Stop: 12/15/18 09:46 Last Admin: 12/10/18 22:34 Dose: 167 mls/hr Lactated Ringer's (Lactated Ringer's) 1,000 mls @ 100 mls/hr IV .Q10H [facility] Last Admin: 12/11/18 06:20 Dose: 100 mls/hr Insulin Human Regular (Humulin R Low) 0 units SC Q6 [facility]; Protocol Last Admin: 12/11/18 01:53 Dose: Not Given Levalbuterol HCl (Xopenex) 0.63 mg IH [id number] [facility] Last Admin: 12/11/18 08:00 Dose: 0.63 mg Metoprolol Tartrate (Lopressor) 50 mg PEG Q8H [facility] Last Admin: 12/11/18 02:14 Dose: 50 mg Mirtazapine (Remeron) 15 mg PEG HS [facility] Last Admin: 12/10/18 22:33 Dose: 15 mg Multivitamins/Vitamin C (Multi-Delyn Liquid) 15 ml PEG 0800 [facility] Last Admin: 12/10/18 10:58 Dose: 15 ml Mupirocin (Bactroban Ointment) 0 gm NS BID [facility] Stop: 12/11/18 10:01 Last Admin: 12/10/18 18:56 Dose: 1 applic Nitroglycerin (Nitro-Bid 2% Oint) 1 ea TOP Q6 [facility] Last Admin: 12/11/18 05:53 Dose: 1 ea Ondansetron HCl (Zofran Inj) 4 mg IVP Q4H PRN PRN Reason: Nausea/Vomiting Pantoprazole Sodium (Protonix Inj) 40 mg IV DAILY [facility] Last Admin: 12/10/18 10:44 Dose: 40 mg Silver Sulfadiazine (Silvadene 1% 25 Gm) 0 gm TP DAILY [facility] Last Admin: 12/10/18 10:49 Dose: 25 gm Tramadol HCl (Ultram) 50 mg GT Q12H PRN PRN Reason: Pain, moderate (4-7) Last Admin: 12/09/18 19:57 Dose: 50 mg - Labs Labs: 12/11/18 07:30 12/11/18 07:30 - Constitutional Appears: No Acute Distress, Chronically Ill - Eye Exam Eye Exam: EOMI. absent: Scleral icterus - ENT Exam ENT Exam: Mucous Membranes Moist - Respiratory Exam Respiratory Exam: NORMAL BREATHING PATTERN. absent: Accessory Muscle Use, Respiratory Distress - Cardiovascular Exam Cardiovascular Exam: +S1, +S2. absent: Bradycardia, Tachycardia - GI/Abdominal Exam GI & Abdominal Exam: Soft. absent: Distended, Firm, Guarding, Rigid, Tenderness Additional comments: G-tube in place, no longer sliding. no leakage around area - Neurological Exam Neurological Exam: Awake - Skin Skin Exam: Intact, Warm Additional comments: sacral ulcer stage III. wound vac placed Assessment and Plan - Assessment and Plan (Free Text) Assessment: 83Madmitted for PNA. Found to have leakage around G-tube and stage IV sacral decubitus ulcer with no signs of infections Sacral decubitus ulcer stage III; well healed good granulation tissue Cholelithiasis Pneumonia HTN DM2 Dementia Parkinson's disease Plan: -G-tube re-adjusted no leaking around edges anymore -sacral wound care- wound vac applied 12/11/18 -air mattress, repositioning q2h -no surgical interventions at this time -further recs per attending Dr. Farmer covering for Dr. Quinn Del Angel PGY2
[2018-12-11] MEDS ORDERED: Fluconazole IV 200mg/100 ml NS 100 MG in Premixed IV 1 EA IVPB SCH (11:15)
[2018-12-11] MEDS: Enoxaparin 40 mg Syringe SC SCH (12:06)
[2018-12-11] MEDS: Multi Vitamins 15 mL UD Oral Solution PEG SCH (12:10)
[2018-12-11] MEDS: Vancomycin 1gm in NS 250ml 1 GM/250 ML BAG IVPB SCH ×2 (12:18→20:12)
[2018-12-11] MEDS: Ascorbic Acid 500 mg/5 ml Liq(50 ml) PEG SCH (12:18)
[2018-12-11] MEDS: Mupirocin 2% Ointment 15 GM TUBE NS SCH (12:21)
[2018-12-11] MEDS: Silver Sulfadiazine 1% Cream (25 gm) TP SCH (12:22)
--- NOTE | 2018-12-11 13:10 | PN ---
DATE: 12/11/2018 SUBJECTIVE: The patient is seen in room 266, bed 2. The patient is seen lying in the bed. Overnight nurse's notes were reviewed. The patient stayed well without any adverse events documented. The patient slept most of the night. OBJECTIVE: VITAL SIGNS: T-max 97, heart rate 78, 84, 92, 60, blood pressure 150/69, 165/81, 168/72, respirations 20, O2 sat 96%. INTAKE/OUTPUT: Output was 1600 yesterday. HEENT: Head; normocephalic, atraumatic. HEENT examination shows pinkish pale conjunctivae. Anicteric sclerae. No oropharyngeal lesion. No neck rigidity. CHEST: Kyphosis. Positive rhonchi noted bilaterally, upper lung zhang. Decreasing crackle and creps noted. CARDIOVASCULAR: Shows S1, S2, regular rhythm. ABDOMEN: Soft. Positive bowel sound, positive gastrostomy. GENITALIA: Male. Positive Vega catheter. EXTREMITIES: Shows positive Multi Podus boot. MUSCULOSKELETAL: Shows a decreased muscle mass of 20. NEUROLOGIC: The patient is arousable to painful stimuli. The patient is unable to move upper and lower extremity. The patient has upper and lower extremity flexion contractures. Gait examination is bedridden. Positive sacral decubitus ulceration noted. DIAGNOSTICS: 12/11/2018, WBC 8.4, hemoglobin/hematocrit 9.7, 32, platelet 376. Sodium 139, potassium 4.0, chloride 105, CO2 32, BUN 15, creatinine 0.5, GFR greater than 60, glucose 121, calcium 9.3, phosphorus 3.0, magnesium 2.0. LFTs are normal. Fingerstick blood sugar 206, 140, 121, 120, 130, 169. Sacral decubitus ulceration and gram-negative dahiana and yeast species. Urine culture, Proteus mirabilis. IMPRESSION AND PLAN: 1. Sepsis. 2. Multilobar bilateral healthcare-associated versus aspiration pneumonia. 3. Slow resolving right lower lobe pneumonia and new left lower lobe pneumonia. 4. Hypertension. 5. Slow resolving leukocytosis with granulocytosis. 6. Anemia with decreasing hemoglobin/hematocrit. 7. Status post packed red blood cell transfusion. 8. Hzw-ctsldxf-shgkzweho diabetes mellitus. 9. Hyperprocalcitoninemia. 10. Multidrug resistant Proteus mirabilis urinary tract infection with microscopic hematuria, pyuria, bacteriuria. 11. Gram-negative dahiana and yeast species, sacral decubitus ulceration and stage IV sacral decubitus ulceration. 12. Questionable gastrostomy tube malfunction and leak. 13. Severe advanced dementia and severe advanced Parkinson disease. 14. Severe gait dysfunction, deconditioning and bedridden status and functional quadriplegia. 15. Insomnia. 1. Sepsis. 2. Multilobar bilateral healthcare-associated aspiration pneumonia. 3. Stage IV sacral decubitus ulceration. 4. Normocytic anemia with decreasing hemoglobin/hematocrit. 5. Status post packed red blood cell transfusion x1. 6. Leukocytosis with granulocytosis. 7. Reactive thrombocytosis. 8. Insulin-requiring diabetes mellitus. 9. Feeding dysfunction with gastrostomy tube placement. 10. Neurogenic bladder with Vega catheter placement. 11. Severe gait dysfunction, bedridden status and severe deconditioning and possible functional quadriplegia. 12. Severe advanced dementia and severe advanced Parkinson disease. 1. Sepsis with multilobar bilateral healthcare-associated possible aspiration pneumonia. 2. Sacral decubitus ulceration. 3. Proteus mirabilis urinary tract infection. 4. Normocytic anemia with decreasing hemoglobin/hematocrit. 5. Status post packed red blood cell transfusion x1. 6. Advanced Parkinson disease and parkinsonism with severely advanced dementia. 7. Hypertension. 8. Feeding dysfunction with gastrostomy tube placement. 9. Voiding dysfunction with neurogenic bladder requiring Vega catheter dependent. 10. Severe gait dysfunction and bedridden status and possible functional quadriplegia. 1. Sepsis with multilobar bilateral healthcare-associated pneumonia versus questionable aspiration pneumonia. 2. Advanced Parkinson's disease and dementia with questionable behavioral disorder with episodic agitation. 3. Questionable multidrug-resistant Proteus mirabilis urinary tract infection. 4. Slow-resolving leukocytosis with granulocytosis. 5. Normocytic anemia with decreasing hemoglobin and hematocrit. 6. Insulin-requiring diabetes mellitus. 7. Severe feeding dysfunction and oropharyngeal dysphagia with placement of gastrostomy tube. 8. Neurogenic bladder with chronic indwelling Vega catheter. 9. Sacral decubitus ulceration. 10. Severe advanced Parkinson's disease and dementia. 11. Severe gait dysfunction and deconditioning and bedridden status and functional quadriplegia. 12. History of hypertension. 13. History of diabetes mellitus. 1. Sepsis with multilobar bilateral healthcare-associated pneumonia. 2. Sacral decubitus ulceration. 3. Hyperprocalcitoninemia. 4. Insulin-requiring diabetes mellitus. 5. Microscopic hematuria, pyuria, bacteriuria 6. Leukocytosis with granulocytosis. 7. Anemia with decreasing hemoglobin/hematocrit. 8. Mild hypoalbuminemia. 9. Severely advanced dementia and Parkinson disease. 10. Severe gait dysfunction and deconditioning and bedridden status with functional quadriplegia. 11. History of hypertension. 12. History of gait dysfunction. 1. High-grade fever. 2. Possible sepsis versus systemic inflammatory response syndrome. 3. Tachycardia. 4. Tachypnea. 5. Leukocytosis with granulocytosis. 6. Normocytic anemia. 7. Possible sepsis with multilobar bilateral aspiration pneumonia. 8. Bnv-gevhxhr-qoevzseex diabetes mellitus. 9. Microscopic hematuria, pyuria, bacteriuria and triple phosphate crystals. 10. Severe advanced dementia. 11. Severe advanced Parkinson's disease. 12. History of recurrent sepsis, pneumonia and urinary tract infection. 13. Sacral decubitus ulceration. 14. Feeding dysfunction with gastrostomy tube placement. 15. Speech dysfunction. 16. Multilobar bilateral possible aspiration pneumonia with a new left lower lobe pneumonia. 17. Sinus tachycardia. 18. Sepsis with pneumonia. 19. Feeding dysfunction. 20. Possible functional quadriplegia with bedridden status and severe gait dysfunction. 21. Severe advanced dementia. 22. Severe advanced Parkinson's disease. 23. History of hypertension. 24. Insulin-requiring diabetes mellitus. 25. History of tachycardia. 26. Chronic pain syndrome. 27. History of recurrent sepsis and aspiration pneumonia. 28. History of sacral decubitus ulceration, history of recurrent aspiration pneumonia. 29. History of feeding dysfunction. 30. History of dysarthria, speech dysfunction. 31. History of neurogenic bladder with urinary retention incontinence and chronic indwelling Vega catheter placement. 32. Upper and lower extremity flexion contractures. 33. History of methicillin-resistant Staphylococcus aureus nares. 34. Possible functional quadriplegia with severe deconditioning, gait dysfunction, bedridden status. 35. History of hypernatremia. 36. History of malnutrition and hypoalbuminemia. 37. Recurrent sacral decubitus ulceration, recurrent aspiration pneumonia. 38. History of prostatic hypertrophy, history of gait dysfunction. PLAN: At this time, the patient is on Mucomyst nebulizer with Xopenex nebulizer, aspirin 81 daily, clonidine patch 0.1 mg daily, Diflucan 100 mg IV daily total 3 doses, DuoNeb nebulizer every 2 hours p.r.n.. The patient is on lactated Ringer at 100 ml an hour, which will be decreased to 60 ml an hour. IV FLUIDS: Ringer lactate will be decreased to 60 mL an hour. The patient is on Lopressor 50 mg. The patient is on metoprolol 50 mg via PEG tube, Lovenox 40 mg subcu daily, multivitamin liquid via the PEG 15 mL, nitro paste 1 HU 6, Protonix 40 mg daily, Remeron 50 mg at bedtime, Silvadene cream to the affected area, Sinemet 25-250 five times a day via the PEG, Tylenol p.o. suppository every 6 hour p.r.n., tramadol 50 mg every 12 hours p.r.n., ascorbic acid 500 mg daily, Xopenex nebulizer, Zofran 4 mg IV every 4 hours p.r.n. Patient's meropenem, vancomycin and doxycycline are no longer on the MAR, it is exactly not known what is the status of the IV antibiotics. The patient's IV vancomycin, IV meropenem, and IV doxycycline have been discontinued and appears that it fell off the MAR. At present, the patient's IV antibiotic duration will be as per the Infectious Disease. Once IV antibiotics are completed and is discontinued by the Infectious Disease, the patient will be considered for discharge back to the skilled nursing. Dictated and electronically signed, not read. Cameron Quinteros MD [id number]
[2018-12-11] MEDS ORDERED: Vancomycin 1gm in NS 250ml 1 GM/250 ML BAG IVPB SCH (14:45)
--- NOTE | 2018-12-11 14:49 | CP.PCM.PN ---
Subjective - Date & Time of Evaluation Date of Evaluation: 12/11/18 Time of Evaluation: 11:25 - Subjective Subjective: Not in distress, no fevers, still not very responsive. No diarrhea. Objective - Vital Signs/Intake and Output Vital Signs (last 24 hours): Temp Pulse Resp BP Pulse Ox 97.1 F L 62 18 135/71 100 12/10/18 12:00 12/10/18 12:00 12/10/18 12:00 12/10/18 12:00 12/10/18 06:00 Intake and Output: 12/10/18 12/10/18 06:59 18:59 Intake Total 1650 Output Total 1600 Balance 50 - Medications Medications: Current Medications Acetaminophen (Tylenol 325mg Tab) 650 mg PO Q6 PRN PRN Reason: TEMP>=99.5F Acetaminophen (Tylenol 650 Mg Supp) 650 mg RC Q6H PRN PRN Reason: TEMP>=99.5F Acetylcysteine (Acetylcysteine 20%) 4 ml IH [id number] [facility] Last Admin: 12/10/18 13:15 Dose: 4 ml Albuterol/Ipratropium (Duoneb 3 Mg/0.5 Mg (3 Ml) Ud) 3 ml IH [id number] [facility] Last Admin: 12/10/18 13:15 Dose: 3 ml Albuterol/Ipratropium (Duoneb 3 Mg/0.5 Mg (3 Ml) Ud) 3 ml IH Q2H PRN PRN Reason: Shortness of Breath Ascorbic Acid (Vitamin C Liq) 500 mg PEG DAILY [facility] [place] Last Admin: 12/10/18 10:59 Dose: 500 mg Aspirin (Aspirin Chewable) 81 mg PEG DAILY [facility] [place] Last Admin: 12/10/18 10:47 Dose: 81 mg Carbidopa/Levodopa (Sinemet) 1 tab PEG 5XD [facility] [place] Last Admin: 12/10/18 10:43 Dose: 1 tab Clonidine HCl (Catapres Tts1 0.1 Mg/24 Hr) 1 patch TD Q7D@1000 [facility] [place] Last Admin: 12/06/18 11:05 Dose: 1 patch Doxycycline Hyclate (Doryx) 100 mg PO Q12 [facility]; Protocol Stop: 12/15/18 10:01 Last Admin: 12/10/18 10:48 Dose: 100 mg Enoxaparin Sodium (Lovenox) 40 mg SC DAILY [facility]; Protocol Last Admin: 12/10/18 10:47 Dose: 40 mg Furosemide (Lasix) 40 mg IVP ONCE PRN PRN Reason: Systolic Blood Pressure Last Admin: 12/08/18 14:35 Dose: 40 mg Meropenem (Merrem Iv 1 Gm Premix) 1 gm in 50 mls @ 100 mls/hr IVPB Q8 [facility]; Protocol Stop: 12/15/18 09:46 Last Admin: 12/10/18 13:50 Dose: 100 mls/hr Vancomycin HCl (Vancomycin 1gm) 1 gm in 250 mls @ 167 mls/hr IVPB Q12H [facility]; Protocol Stop: 12/15/18 09:46 Last Admin: 12/10/18 10:43 Dose: 167 mls/hr Lactated Ringer's (Lactated Ringer's) 1,000 mls @ 100 mls/hr IV .Q10H [facility] [place] Last Admin: 12/10/18 04:30 Dose: 100 mls/hr Insulin Human Regular (Humulin R Low) 0 units SC Q6 [facility]; Protocol Last Admin: 12/10/18 06:56 Dose: Not Given Levalbuterol HCl (Xopenex) 0.63 mg IH [id number] [facility] [place] Last Admin: 12/10/18 13:15 Dose: 0.63 mg Metoprolol Tartrate (Lopressor) 50 mg PEG Q8H [facility] [place] Last Admin: 12/10/18 10:53 Dose: 50 mg Mirtazapine (Remeron) 15 mg PEG HS [facility] [place] Last Admin: 12/09/18 21:35 Dose: 15 mg Multivitamins/Vitamin C (Multi-Delyn Liquid) 15 ml PEG 0800 [facility] Last Admin: 12/10/18 10:58 Dose: 15 ml Mupirocin (Bactroban Ointment) 0 gm NS BID [facility] Stop: 12/11/18 10:01 Last Admin: 12/10/18 10:48 Dose: 1 applic Nitroglycerin (Nitro-Bid 2% Oint) 1 ea TOP Q6 [facility] [place] Last Admin: 12/10/18 13:02 Dose: Not Given Ondansetron HCl (Zofran Inj) 4 mg IVP Q4H PRN PRN Reason: Nausea/Vomiting Pantoprazole Sodium (Protonix Inj) 40 mg IV DAILY [facility] [place] Last Admin: 12/10/18 10:44 Dose: 40 mg Silver Sulfadiazine (Silvadene 1% 25 Gm) 0 gm TP DAILY [facility] Last Admin: 12/10/18 10:49 Dose: 25 gm Tramadol HCl (Ultram) 50 mg GT Q12H PRN PRN Reason: Pain, moderate (4-7) Last Admin: 12/09/18 19:57 Dose: 50 mg - Labs Labs: 12/10/18 06:45 12/10/18 06:45 - Constitutional Appears: Chronically Ill - Head Exam Head Exam: NORMAL INSPECTION - ENT Exam ENT Exam: Mucous Membranes Moist - Neck Exam Neck Exam: absent: Meningismus - Respiratory Exam Respiratory Exam: Decreased Breath Sounds - Cardiovascular Exam Cardiovascular Exam: +S1, +S2 - GI/Abdominal Exam GI & Abdominal Exam: Soft. absent: Tenderness Assessment and Plan - Assessment and Plan (Free Text) Plan: Assessment sepsis due to bilateral HCAP, infected sacral ulcer S/P sepsis due to aspiration pneumonia in this patient with fecal impaction (S/P disimpaction), less likely bowel obstruction S/P Janeway gastrostomy tube placement - air under diaphragm noted on CT A/P probably related to the gastrostomy tube placement (as discussed with Dr. Ball) DM HTN history of UTI's Plan continue Vancomycin, Merrem and Doxycycline day 6 pending blood and wound cx results; urine cx showing multidrug-resistant Proteus; target up to 7 days of antibiotics - sacral ulcer cultures are negative so far follow up further plans of Surgery will continue to monitor clinically overall prognosis is poor
[2018-12-12] MEDS: Levalbuterol 0.63 MG/3 ML Inhal Soln UD IH SCH ×4 (01:28→20:25)
[2018-12-12] MEDS: Acetylcysteine 20% Inhal Soln (4ml) IH SCH ×4 (01:28→20:25)
[2018-12-12] MEDS: Insulin Reg-LOW-Coverage SC SCH ×3 (05:16→17:39)
[2018-12-12] MEDS: Nitroglycerin 2% Ointment Foilpak UD TOP SCH ×4 (05:18→19:11)
[2018-12-12] MEDS: Carbidopa/Levodopa 25/250 PEG SCH ×4 (05:37→23:00)
[2018-12-12] MEDS: Meropenem IV 1 gm in NS 1 GM/50 ML BAG IVPB SCH ×3 (05:37→22:59)
[2018-12-12] MEDS: Multi Vitamins 15 mL UD Oral Solution PEG SCH (08:32)
[2018-12-12] MEDS: Vancomycin 1gm in NS 250ml 1 GM/250 ML BAG IVPB SCH ×2 (08:32→21:10)
[2018-12-12 08:39] LABS: BASO # 0.02 K/mm3 (0.0-2.0); BASO % 0.3 % (0.0-3.0); EOS # 0.5 (0.0-0.7); EOS % 6.8 % (1.5-5.0); GRAN # 4.25 (1.4-6.5); GRAN % 55.9 % (50.0-68.0); HEMOGLOBIN 9.6 g/dL (14.0-18.0); LYMPH # 2.1 (1.2-3.4); MEAN CELL VOLUME 81.6 fl (80.0-105.0); MEAN CORPUSCULAR HEMOGLOBIN 24.9 pg (25.0-35.0); MEAN CORPUSCULAR HGB CONC 30.6 g/dl (31.0-37.0); MEAN PLATELET VOLUME 8.6 fl (7.0-11.0); MONO # 0.8 (0.1-0.6); RBC 3.85 10^6/uL (3.5-6.1); RED CELL DISTRIBUTION WIDTH 17.7 % (11.5-14.5); WHITE BLOOD COUNT 7.6 10^3/uL (4.5-11.0)
[2018-12-12 09:26] LABS: ALB/GLOB RATIO 0.7 (1.1-1.8); ALBUMIN 2.7 g/dL (3.0-4.8); ALT/SGPT 15 U/L (7-56); AST/SGOT 31 U/L (17-59); BILIRUBIN,DIRECT 0.2 mg/dL (0.0-0.4); BLOOD UREA NITROGEN 14 mg/dL (7-21); CALCIUM 8.9 mg/dL (8.4-10.5); GFR NON-AFRICAN AMERICAN > 60
[2018-12-12] MEDS: Enoxaparin 40 mg Syringe SC SCH (11:36)
[2018-12-12] MEDS: Silver Sulfadiazine 1% Cream (25 gm) TP SCH (11:39)
--- NOTE | 2018-12-12 13:18 | PN ---
Covering for Dr. Quinteros. SUBJECTIVE: The patient was seen and examined at bedside on the telemetry gomes. No acute events overnight. He remains afebrile, hemodynamically stable and clinically unchanged. PHYSICAL EXAMINATION: VITAL SIGNS: Temperature 98, pulse 72, blood pressure 120/77, respiratory rate 18, oxygen saturation 100% on 3 liters nasal cannula. GENERAL: Frail, chronically ill, nontoxic elderly man lying in bed in no apparent distress. HEENT: PERRL, EOMI. No scleral icterus. Conjunctival pallor is noted. NECK: No JVD. LUNGS: Scattered rhonchi. CARDIOVASCULAR: Regular rate and rhythm. Normal S1, S2. ABDOMEN: Normoactive bowel sounds. Soft, nondistended with PEG tube in place and site appearing clean, dry and intact. EXTREMITIES: No edema. NEUROLOGIC: Somnolent but arousable. Moving all extremities. LABORATORY DATA: WBC 7.6 with 56% neutrophils, hemoglobin 9.6, hematocrit 31, platelets 403. Sodium 141, potassium 3.9, chloride 107, bicarb 32, BUN 14, creatinine 0.5, glucose 114. Blood cultures with no growth to date. Urine culture with Proteus mirabilis and sensitivities noted. ASSESSMENT: The patient is an 83-year-old man with a past medical history of hypertension, type 2 diabetes mellitus and advanced Parkinson disease with severe dementia who was [facility] from his [facility] for evaluation of lethargy and fevers and was admitted for management of healthcare associated pneumonia. PLAN: 1. Sepsis secondary to healthcare-associated pneumonia. Input from Dr. Michelle noted and the patient is on Doxycycline, Meropenem and Vancomycin. Continue care as per Dr. Michelle. Continue to monitor for fever and leukocytosis. 2. Hypertension. BP controlled. Continue with Clonidine 0.1 mg TD patch and Metoprolol 50 mg q. 8 hours via PEG. 3. Type 2 diabetes mellitus. Continue with low-dose insulin sliding scale for coverage. 4. Normocytic anemia. Labs with stable H/H. We will continue to monitor and transfuse as needed. 5. Advanced Parkinson's disease with severe dementia. Continue Sinemet. 6. BPH. 7. Prophylaxis. Continue with Protonix for GI prophylaxis and Lovenox for DVT prophylaxis. CODE STATUS: DNR/DNI. Ashok Easlye MD EPI
[2018-12-12] MEDS: Ascorbic Acid 500 mg/5 ml Liq(50 ml) PEG SCH (13:47)
--- NOTE | 2018-12-12 14:01 | CP.PCM.PN ---
Subjective - Date & Time of Evaluation Date of Evaluation: 12/12/18 Time of Evaluation: 11:30 - Subjective Subjective: No fevers, not in distress, non-toxic. Objective - Vital Signs/Intake and Output Vital Signs (last 24 hours): Temp Pulse Resp BP Pulse Ox 98 F 111 H 18 169/77 H 100 12/12/18 06:00 12/12/18 11:36 12/12/18 06:00 12/12/18 11:36 12/12/18 06:00 Intake and Output: 12/12/18 12/12/18 06:59 18:59 Intake Total 3350 Output Total 2200 Balance 1150 - Medications Medications: Current Medications Acetaminophen (Tylenol 325mg Tab) 650 mg PO Q6 PRN PRN Reason: TEMP>=99.5F Acetaminophen (Tylenol 650 Mg Supp) 650 mg RC Q6H PRN PRN Reason: TEMP>=99.5F Acetylcysteine (Acetylcysteine 20%) 4 ml IH [id number] Last Admin: 12/12/18 13:39 Dose: 4 ml Albuterol/Ipratropium (Duoneb 3 Mg/0.5 Mg (3 Ml) Ud) 3 ml IH Q2H PRN PRN Reason: Shortness of Breath Ascorbic Acid (Vitamin C Liq) 500 mg PEG DAILY [facility] Last Admin: 12/12/18 13:47 Dose: 500 mg Aspirin (Aspirin Chewable) 81 mg PEG DAILY [facility] Last Admin: 12/12/18 11:37 Dose: 81 mg Carbidopa/Levodopa (Sinemet) 1 tab PEG 5XD [facility] Last Admin: 12/12/18 11:36 Dose: 1 tab Clonidine HCl (Catapres Tts1 0.1 Mg/24 Hr) 1 patch TD Q7D@1000 [facility] Last Admin: 12/06/18 11:05 Dose: 1 patch Enoxaparin Sodium (Lovenox) 40 mg SC DAILY [facility]; Protocol Last Admin: 12/12/18 11:36 Dose: 40 mg Lactated Ringer's (Lactated Ringer's) 1,000 mls @ 60 mls/hr IV .[id number] [facility] Last Admin: 12/11/18 12:24 Dose: 60 mls/hr Doxycycline Hyclate 100 mg/ (Sodium Chloride) 100 mls @ 100 mls/hr IVPB Q12 [facility]; Protocol Last Admin: 12/12/18 11:36 Dose: 100 mls/hr Meropenem (Merrem Iv 1 Gm Premix) 1 gm in 50 mls @ 100 mls/hr IVPB Q8 [facility]; Protocol Last Admin: 12/12/18 13:47 Dose: 100 mls/hr Vancomycin HCl (Vancomycin 1gm) 1 gm in 250 mls @ 167 mls/hr IVPB 0800,2000 [facility]; Protocol Last Admin: 12/12/18 08:32 Dose: 167 mls/hr Fluconazole 100 mg/ (Miscellaneous) 50 mls @ 100 mls/hr IVPB 1500 [facility]; Protocol Stop: 12/13/18 15:29 Insulin Human Regular (Humulin R Low) 0 units SC Q6 [facility]; Protocol Last Admin: 12/12/18 12:00 Dose: Not Given Levalbuterol HCl (Xopenex) 0.63 mg IH [id number] [facility] Last Admin: 12/12/18 13:39 Dose: 0.63 mg Metoprolol Tartrate (Lopressor) 50 mg PEG Q8H [facility] Last Admin: 12/12/18 11:36 Dose: 50 mg Mirtazapine (Remeron) 15 mg PEG HS [facility] Last Admin: 12/11/18 21:37 Dose: 15 mg Multivitamins/Vitamin C (Multi-Delyn Liquid) 15 ml PEG 0800 [facility] Last Admin: 12/12/18 08:32 Dose: 15 ml Nitroglycerin (Nitro-Bid 2% Oint) 1 ea TOP Q6 [facility] Last Admin: 12/12/18 11:39 Dose: 1 ea Ondansetron HCl (Zofran Inj) 4 mg IVP Q4H PRN PRN Reason: Nausea/Vomiting Pantoprazole Sodium (Protonix Inj) 40 mg IV DAILY [facility] Last Admin: 12/12/18 11:35 Dose: 40 mg Silver Sulfadiazine (Silvadene 1% 25 Gm) 0 gm TP DAILY [facility] Last Admin: 12/12/18 11:39 Dose: Not Given Tramadol HCl (Ultram) 50 mg GT Q12H PRN PRN Reason: Pain, moderate (4-7) Last Admin: 12/11/18 12:15 Dose: 50 mg - Labs Labs: 12/12/18 08:00 12/12/18 08:00 - Constitutional Appears: Chronically Ill - Head Exam Head Exam: NORMAL INSPECTION - Respiratory Exam Respiratory Exam: Decreased Breath Sounds - Cardiovascular Exam Cardiovascular Exam: +S1, +S2 - GI/Abdominal Exam GI & Abdominal Exam: Soft. absent: Tenderness Assessment and Plan - Assessment and Plan (Free Text) Assessment: Assessment sepsis due to bilateral HCAP, infected sacral ulcer S/P sepsis due to aspiration pneumonia in this patient with fecal impaction (S/P disimpaction), less likely bowel obstruction S/P Janeway gastrostomy tube placement - air under diaphragm noted on CT A/P probably related to the gastrostomy tube placement (as discussed with Dr. Ball) DM HTN history of UTI's Plan continue Vancomycin, Merrem and Doxycycline day 7 pending blood and wound cx results; urine cx showing multidrug-resistant Proteus; target up to 7 days of antibiotics - sacral ulcer cultures are negative so far follow up further plans of Surgery will continue to monitor clinically overall prognosis is poor
[2018-12-12] MEDS: Fluconazole IV 200mg/100 ml NS 100 MG in Premixed IV 1 EA IVPB SCH (16:35)
[2018-12-12] MEDS: Lactated Ringer's 1,000 ML IV SCH ×2 (19:13→21:20)
[2018-12-13] MEDS: Levalbuterol 0.63 MG/3 ML Inhal Soln UD IH SCH ×4 (02:30→21:54)
[2018-12-13] MEDS: Acetylcysteine 20% Inhal Soln (4ml) IH SCH ×4 (02:30→21:54)
[2018-12-13] MEDS: Insulin Reg-LOW-Coverage SC SCH ×3 (06:00→12:35)
[2018-12-13] MEDS: Meropenem IV 1 gm in NS 1 GM/50 ML BAG IVPB SCH ×3 (06:35→21:37)
[2018-12-13] MEDS: Nitroglycerin 2% Ointment Foilpak UD TOP SCH ×4 (06:36→18:27)
[2018-12-13] MEDS: Carbidopa/Levodopa 25/250 PEG SCH ×5 (06:42→21:41)
[2018-12-13] MEDS: Multi Vitamins 15 mL UD Oral Solution PEG SCH (08:11)
[2018-12-13] MEDS: Vancomycin 1gm in NS 250ml 1 GM/250 ML BAG IVPB SCH ×2 (08:11→20:08)
--- NOTE | 2018-12-13 10:06 | CP.PCM.PCO ---
Physician Communication Note - Physician Communication Note Physician Communication Note: Wound vac changed at bedside this AM. No air leak now
[2018-12-13] MEDS: Ascorbic Acid 500 mg/5 ml Liq(50 ml) PEG SCH (11:16)
[2018-12-13] MEDS: Enoxaparin 40 mg Syringe SC SCH (11:17)
[2018-12-13] MEDS: Silver Sulfadiazine 1% Cream (25 gm) TP SCH (11:18)
--- NOTE | 2018-12-13 12:41 | CP.PCM.PN ---
Subjective - Date & Time of Evaluation Date of Evaluation: 12/13/18 Time of Evaluation: 10:45 - Subjective Subjective: No fevers, not in distress, wound vacuum re-adjusted today. Objective - Vital Signs/Intake and Output Vital Signs (last 24 hours): Temp Pulse Resp BP Pulse Ox 98 F 111 H 18 169/77 H 100 12/12/18 06:00 12/12/18 11:36 12/12/18 06:00 12/12/18 11:36 12/12/18 06:00 Intake and Output: 12/12/18 12/12/18 06:59 18:59 Intake Total 3350 Output Total 2200 Balance 1150 - Medications Medications: Current Medications Acetaminophen (Tylenol 325mg Tab) 650 mg PO Q6 PRN PRN Reason: TEMP>=99.5F Acetaminophen (Tylenol 650 Mg Supp) 650 mg RC Q6H PRN PRN Reason: TEMP>=99.5F Acetylcysteine (Acetylcysteine 20%) 4 ml IH [id number] [facility] Last Admin: 12/12/18 13:39 Dose: 4 ml Albuterol/Ipratropium (Duoneb 3 Mg/0.5 Mg (3 Ml) Ud) 3 ml IH Q2H PRN PRN Reason: Shortness of Breath Ascorbic Acid (Vitamin C Liq) 500 mg PEG DAILY [facility] Last Admin: 12/12/18 13:47 Dose: 500 mg Aspirin (Aspirin Chewable) 81 mg PEG DAILY [facility] Last Admin: 12/12/18 11:37 Dose: 81 mg Carbidopa/Levodopa (Sinemet) 1 tab PEG 5XD [facility] Last Admin: 12/12/18 11:36 Dose: 1 tab Clonidine HCl (Catapres Tts1 0.1 Mg/24 Hr) 1 patch TD Q7D@1000 [facility] Last Admin: 12/06/18 11:05 Dose: 1 patch Enoxaparin Sodium (Lovenox) 40 mg SC DAILY [facility]; Protocol Last Admin: 12/12/18 11:36 Dose: 40 mg Lactated Ringer's (Lactated Ringer's) 1,000 mls @ 60 mls/hr IV .[id number] [facility] Last Admin: 12/11/18 12:24 Dose: 60 mls/hr Doxycycline Hyclate 100 mg/ (Sodium Chloride) 100 mls @ 100 mls/hr IVPB Q12 [facility]; Protocol Last Admin: 12/12/18 11:36 Dose: 100 mls/hr Meropenem (Merrem Iv 1 Gm Premix) 1 gm in 50 mls @ 100 mls/hr IVPB Q8 [facility]; Protocol Last Admin: 12/12/18 13:47 Dose: 100 mls/hr Vancomycin HCl (Vancomycin 1gm) 1 gm in 250 mls @ 167 mls/hr IVPB 0800,2000 [facility]; Protocol Last Admin: 12/12/18 08:32 Dose: 167 mls/hr Fluconazole 100 mg/ (Miscellaneous) 50 mls @ 100 mls/hr IVPB 1500 [facility]; Protocol Stop: 12/13/18 15:29 Insulin Human Regular (Humulin R Low) 0 units SC Q6 [facility]; Protocol Last Admin: 12/12/18 12:00 Dose: Not Given Levalbuterol HCl (Xopenex) 0.63 mg IH [id number] [facility] Last Admin: 12/12/18 13:39 Dose: 0.63 mg Metoprolol Tartrate (Lopressor) 50 mg PEG Q8H [facility] Last Admin: 12/12/18 11:36 Dose: 50 mg Mirtazapine (Remeron) 15 mg PEG HS [facility] Last Admin: 12/11/18 21:37 Dose: 15 mg Multivitamins/Vitamin C (Multi-Delyn Liquid) 15 ml PEG 0800 [facility] Last Admin: 12/12/18 08:32 Dose: 15 ml Nitroglycerin (Nitro-Bid 2% Oint) 1 ea TOP Q6 [facility] Last Admin: 12/12/18 11:39 Dose: 1 ea Ondansetron HCl (Zofran Inj) 4 mg IVP Q4H PRN PRN Reason: Nausea/Vomiting Pantoprazole Sodium (Protonix Inj) 40 mg IV DAILY [facility] Last Admin: 12/12/18 11:35 Dose: 40 mg Silver Sulfadiazine (Silvadene 1% 25 Gm) 0 gm TP DAILY [facility] Last Admin: 12/12/18 11:39 Dose: Not Given Tramadol HCl (Ultram) 50 mg GT Q12H PRN PRN Reason: Pain, moderate (4-7) Last Admin: 12/11/18 12:15 Dose: 50 mg - Labs Labs: 12/12/18 08:00 12/12/18 08:00 - Constitutional Appears: Chronically Ill - Head Exam Head Exam: NORMAL INSPECTION - ENT Exam ENT Exam: Mucous Membranes Moist - Neck Exam Neck Exam: absent: Meningismus - Respiratory Exam Respiratory Exam: Decreased Breath Sounds - Cardiovascular Exam Cardiovascular Exam: +S1, +S2 - GI/Abdominal Exam GI & Abdominal Exam: Soft. absent: Tenderness Assessment and Plan - Assessment and Plan (Free Text) Plan: Assessment sepsis due to bilateral HCAP, infected sacral ulcer S/P sepsis due to aspiration pneumonia in this patient with fecal impaction (S/P disimpaction), less likely bowel obstruction S/P Janeway gastrostomy tube placement - air under diaphragm noted on CT A/P probably related to the gastrostomy tube placement (as discussed with Dr. Ball) DM HTN history of UTI's Plan continue Vancomycin, Merrem and Doxycycline day 8 pending blood and wound cx results; urine cx showing multidrug-resistant Proteus; target - sacral ulcer cultures are negative so far follow up further plans of Surgery will continue to monitor clinically overall prognosis is poor
--- NOTE | 2018-12-13 13:26 | PN ---
Covering for Dr. Quinteros. SUBJECTIVE: The patient is seen and examined at bedside on the telemetry gomes. No acute events overnight. He remains clinically unchanged. OBJECTIVE: VITAL SIGNS: Temperature 98.6, pulse 82, blood pressure 112/50, respiratory rate 18, oxygen saturation 98% on 3L NC. GENERAL: Frail chronically ill-appearing man, lying in bed in no apparent distress. HEENT: PERRL, EOMI. No scleral icterus. Conjunctival pallor is noted. NECK: No JVD. LUNGS: Scattered rhonchi. CARDIOVASCULAR: Regular rate and rhythm. Normal S1 and S2. ABDOMEN: Normoactive bowel sounds, soft, nondistended with PEG tube in place and site appearing clean, dry and intact. EXTREMITIES: No edema. NEUROLOGIC: Somnolent but arousable. Moving all extremities. LABORATORY DATA: No new labs. ASSESSMENT: The patient is an 83-year-old man with a past medical history of hypertension, type 2 diabetes mellitus and advanced Parkinson disease with severe dementia who [facility] of lethargy and fevers and was admitted for management of healthcare-associated pneumonia. PLAN: 1. Sepsis secondary to healthcare-associated pneumonia. Input from Dr. Michelle noted. The patient remains afebrile. Continue current antimicrobials to complete a scheduled course as per Dr. Michelle. 2. Hypertension. Continue Clonidine 0.1 mg transdermal patch and Metoprolol 50 mg q. 8 hours via PEG. 3. Type 2 diabetes mellitus. Continue with low-dose insulin sliding scale for coverage. 4. Normocytic anemia. Labs with stable H/H. We will continue to monitor and transfuse as needed. 5. Advanced Parkinson's disease with severe dementia. Continue Sinemet. 6. BPH. 7. Prophylaxis. Continue with Protonix for GI prophylaxis and Lovenox for DVT prophylaxis. CODE STATUS: DNR/DNI. Ashok Easley MD EPI
[2018-12-13] MEDS: Fluconazole IV 200mg/100 ml NS 100 MG in Premixed IV 1 EA IVPB SCH (15:35)
[2018-12-14] MEDS: Nitroglycerin 2% Ointment Foilpak UD TOP SCH ×4 (00:25→17:09)
[2018-12-14] MEDS: Acetylcysteine 20% Inhal Soln (4ml) IH SCH ×4 (02:36→22:07)
[2018-12-14] MEDS: Levalbuterol 0.63 MG/3 ML Inhal Soln UD IH SCH ×4 (02:37→22:07)
[2018-12-14] MEDS: Meropenem IV 1 gm in NS 1 GM/50 ML BAG IVPB SCH ×3 (05:44→21:53)
[2018-12-14] MEDS: Carbidopa/Levodopa 25/250 PEG SCH ×5 (05:44→21:53)
--- NOTE | 2018-12-14 09:50 | CP.PCM.PN ---
<Marino Suarez - Last Filed: 12/15/18 10:40> Subjective - Date & Time of Evaluation Date of Evaluation: 12/14/18 Time of Evaluation: 07:00 - Subjective Subjective: Progress note for Dr. Quinteros Patient seen and examined at bedside in no acute distress. Physical Exam - Head Exam Head Exam: ATRAUMATIC, NORMAL INSPECTION, NORMOCEPHALIC - ENT Exam ENT Exam: Mucous Membranes Dry - Respiratory Exam Respiratory Exam: absent: Clear to Ausculation Bilateral (congested) - Cardiovascular Exam Cardiovascular Exam: REGULAR RHYTHM, +S1, +S2 - GI/Abdominal Exam GI & Abdominal Exam: Soft - Extremities Exam Extremities Exam: Normal Inspection - Back Exam Additional comments: 5 x 8 cm stage IV sacral ulcer - Neurological Exam Neurological Exam: absent: Alert, Awake (eyes closed) - Psychiatric Exam Psychiatric exam: Normal Mood - Skin Skin Exam: Dry, Warm Additional comments: 5 x 8 cm stage IV sacral ulcer w/o eschar Objective - Vital Signs/Intake and Output Vital Signs (last 24 hours): Temp Pulse Resp BP Pulse Ox 97.6 F 77 20 145/72 98 12/14/18 00:01 12/14/18 01:11 12/14/18 00:01 12/14/18 01:11 12/14/18 00:01 Intake and Output: 12/14/18 12/14/18 06:59 18:59 Intake Total 1320 Output Total 2800 Balance -1480 - Medications Medications: Current Medications Acetaminophen (Tylenol 325mg Tab) 650 mg PO Q6 PRN PRN Reason: TEMP>=99.5F Acetaminophen (Tylenol 650 Mg Supp) 650 mg RC Q6H PRN PRN Reason: TEMP>=99.5F Acetylcysteine (Acetylcysteine 20%) 4 ml IH [id number] [facility] Last Admin: 12/14/18 07:44 Dose: 4 ml Albuterol/Ipratropium (Duoneb 3 Mg/0.5 Mg (3 Ml) Ud) 3 ml IH Q2H PRN PRN Reason: Shortness of Breath Ascorbic Acid (Vitamin C Liq) 500 mg PEG DAILY [facility] Last Admin: 12/13/18 11:16 Dose: 500 mg Aspirin (Aspirin Chewable) 81 mg PEG DAILY [facility] Last Admin: 12/13/18 11:17 Dose: 81 mg Carbidopa/Levodopa (Sinemet) 1 tab PEG 5XD [facility] Last Admin: 12/14/18 05:44 Dose: 1 tab Clonidine HCl (Catapres Tts1 0.1 Mg/24 Hr) 1 patch TD Q7D@1000 [facility] Last Admin: 12/13/18 11:17 Dose: 1 patch Enoxaparin Sodium (Lovenox) 40 mg SC DAILY [facility]; Protocol Last Admin: 12/13/18 11:17 Dose: 40 mg Lactated Ringer's (Lactated Ringer's) 1,000 mls @ 60 mls/hr IV .[id number] [facility] Last Admin: 12/12/18 21:20 Dose: 60 mls/hr Doxycycline Hyclate 100 mg/ (Sodium Chloride) 100 mls @ 100 mls/hr IVPB Q12 [facility]; Protocol Last Admin: 12/13/18 21:42 Dose: 100 mls/hr Meropenem (Merrem Iv 1 Gm Premix) 1 gm in 50 mls @ 100 mls/hr IVPB Q8 [facility]; Protocol Last Admin: 12/14/18 05:44 Dose: 100 mls/hr Vancomycin HCl (Vancomycin 1gm) 1 gm in 250 mls @ 167 mls/hr IVPB 0800,2000 [facility]; Protocol Last Admin: 12/13/18 20:08 Dose: 167 mls/hr Insulin Human Regular (Humulin R Low) 0 units SC Q6 [facility]; Protocol Last Admin: 12/13/18 12:35 Dose: 1 units Levalbuterol HCl (Xopenex) 0.63 mg IH [id number] [facility] Last Admin: 12/14/18 07:45 Dose: 0.63 mg Metoprolol Tartrate (Lopressor) 50 mg PEG Q8H [facility] Last Admin: 12/14/18 01:11 Dose: 50 mg Mirtazapine (Remeron) 15 mg PEG HS [facility] Last Admin: 12/13/18 21:37 Dose: 15 mg Multivitamins/Vitamin C (Multi-Delyn Liquid) 15 ml PEG 0800 [facility] Last Admin: 12/13/18 08:11 Dose: 15 ml Nitroglycerin (Nitro-Bid 2% Oint) 1 ea TOP Q6 [facility] Last Admin: 12/14/18 05:44 Dose: 1 ea Ondansetron HCl (Zofran Inj) 4 mg IVP Q4H PRN PRN Reason: Nausea/Vomiting Pantoprazole Sodium (Protonix Inj) 40 mg IV DAILY [facility] Last Admin: 12/13/18 11:17 Dose: 40 mg Silver Sulfadiazine (Silvadene 1% 25 Gm) 0 gm TP DAILY [facility] Last Admin: 12/13/18 11:18 Dose: Not Given Tramadol HCl (Ultram) 50 mg GT Q12H PRN PRN Reason: Pain, moderate (4-7) Last Admin: 12/11/18 12:15 Dose: 50 mg - Labs Labs: 12/12/18 08:00 12/12/18 08:00 Assessment and Plan - Assessment and Plan (Free Text) Assessment: 83 M with history of DM, and hypertension presenting with sepsis secondary to bilateral HAP and infected sacral ulcer. Sepsis secondary to bilateral HAP and infected sacral ulcer. -continue with IVF -Continue with Vanc, Merrem, doxycycline day 08/03 -Urine culture shows proteus mirabalis Sacral wound Stage IV -Continue with Silvadene -wet to dry dressing Hypertension -Continue clonidine -Continue lopressor DM -ISS-low GI/DVT ppx -Protonix/Lovenox Dispo: Patient's final day of antibiotic therapy is tomorrow, once completed patient can return to care home [facility]. <Cameron Quinteros - Last Filed: 12/16/18 15:59> Objective - Vital Signs/Intake and Output Vital Signs (last 24 hours): Temp Pulse Resp BP Pulse Ox 98.2 F 82 20 143/70 100 12/15/18 12:00 12/15/18 12:00 12/15/18 12:00 12/15/18 12:00 12/15/18 12:00 - Labs Labs: 12/12/18 08:00 12/12/18 08:00 Attending/Attestation - Attestation I have personally seen and examined this patient.: Yes I have fully participated in the care of the patient.: Yes I have reviewed all pertinent clinical information, including history, physical exam and plan: Yes Notes (Text): Please see/read my dictated notes.
--- NOTE | 2018-12-14 11:15 | CP.PCM.PN ---
Subjective - Date & Time of Evaluation Date of Evaluation: 12/14/18 Time of Evaluation: 10:05 - Subjective Subjective: Comfortable, not in distress, afebrile. Objective - Vital Signs/Intake and Output Vital Signs (last 24 hours): Temp Pulse Resp BP Pulse Ox 98.6 F 82 18 183/91 H 98 12/13/18 06:00 12/13/18 06:00 12/13/18 06:00 12/13/18 11:17 12/13/18 06:00 Intake and Output: 12/13/18 12/13/18 06:59 18:59 Intake Total 0 Output Total 1800 Balance -1800 - Medications Medications: Current Medications Acetaminophen (Tylenol 325mg Tab) 650 mg PO Q6 PRN PRN Reason: TEMP>=99.5F Acetaminophen (Tylenol 650 Mg Supp) 650 mg RC Q6H PRN PRN Reason: TEMP>=99.5F Acetylcysteine (Acetylcysteine 20%) 4 ml IH [id number] [facility] Last Admin: 12/13/18 07:24 Dose: 4 ml Albuterol/Ipratropium (Duoneb 3 Mg/0.5 Mg (3 Ml) Ud) 3 ml IH Q2H PRN PRN Reason: Shortness of Breath Ascorbic Acid (Vitamin C Liq) 500 mg PEG DAILY [facility] Last Admin: 12/13/18 11:16 Dose: 500 mg Aspirin (Aspirin Chewable) 81 mg PEG DAILY [facility] Last Admin: 12/13/18 11:17 Dose: 81 mg Carbidopa/Levodopa (Sinemet) 1 tab PEG 5XD [facility] Last Admin: 12/13/18 11:18 Dose: 1 tab Clonidine HCl (Catapres Tts1 0.1 Mg/24 Hr) 1 patch TD Q7D@1000 [facility] Last Admin: 12/13/18 11:17 Dose: 1 patch Enoxaparin Sodium (Lovenox) 40 mg SC DAILY [facility]; Protocol Last Admin: 12/13/18 11:17 Dose: 40 mg Lactated Ringer's (Lactated Ringer's) 1,000 mls @ 60 mls/hr IV .[id number] [facility] Last Admin: 12/12/18 21:20 Dose: 60 mls/hr Doxycycline Hyclate 100 mg/ (Sodium Chloride) 100 mls @ 100 mls/hr IVPB Q12 [facility]; Protocol Last Admin: 12/13/18 11:16 Dose: 100 mls/hr Meropenem (Merrem Iv 1 Gm Premix) 1 gm in 50 mls @ 100 mls/hr IVPB Q8 [facility]; Protocol Last Admin: 12/13/18 06:35 Dose: 100 mls/hr Vancomycin HCl (Vancomycin 1gm) 1 gm in 250 mls @ 167 mls/hr IVPB 0800,2000 [facility]; Protocol Last Admin: 12/13/18 08:11 Dose: 167 mls/hr Fluconazole 100 mg/ (Miscellaneous) 50 mls @ 100 mls/hr IVPB 1500 [facility]; Protocol Stop: 12/13/18 15:29 Last Admin: 12/12/18 16:35 Dose: 100 mls/hr Insulin Human Regular (Humulin R Low) 0 units SC Q6 [facility]; Protocol Last Admin: 12/13/18 12:35 Dose: 1 units Levalbuterol HCl (Xopenex) 0.63 mg IH [id number] [facility] Last Admin: 12/13/18 07:24 Dose: 0.63 mg Metoprolol Tartrate (Lopressor) 50 mg PEG Q8H [facility] Last Admin: 12/13/18 11:17 Dose: 50 mg Mirtazapine (Remeron) 15 mg PEG HS [facility] Last Admin: 12/12/18 23:00 Dose: 15 mg Multivitamins/Vitamin C (Multi-Delyn Liquid) 15 ml PEG 0800 [facility] Last Admin: 12/13/18 08:11 Dose: 15 ml Nitroglycerin (Nitro-Bid 2% Oint) 1 ea TOP Q6 [facility] Last Admin: 12/13/18 11:18 Dose: 1 ea Ondansetron HCl (Zofran Inj) 4 mg IVP Q4H PRN PRN Reason: Nausea/Vomiting Pantoprazole Sodium (Protonix Inj) 40 mg IV DAILY [facility] Last Admin: 12/13/18 11:17 Dose: 40 mg Silver Sulfadiazine (Silvadene 1% 25 Gm) 0 gm TP DAILY [facility] Last Admin: 12/13/18 11:18 Dose: Not Given Tramadol HCl (Ultram) 50 mg GT Q12H PRN PRN Reason: Pain, moderate (4-7) Last Admin: 12/11/18 12:15 Dose: 50 mg - Labs Labs: 12/12/18 08:00 12/12/18 08:00 - Constitutional Appears: Chronically Ill - Head Exam Head Exam: NORMAL INSPECTION - Respiratory Exam Respiratory Exam: Decreased Breath Sounds - Cardiovascular Exam Cardiovascular Exam: +S1, +S2 - GI/Abdominal Exam GI & Abdominal Exam: Soft. absent: Tenderness Assessment and Plan - Assessment and Plan (Free Text) Plan: Assessment sepsis due to bilateral HCAP, infected sacral ulcer S/P sepsis due to aspiration pneumonia in this patient with fecal impaction (S/P disimpaction), less likely bowel obstruction S/P Janeway gastrostomy tube placement - air under diaphragm noted on CT A/P probably related to the gastrostomy tube placement (as discussed with Dr. Ball) DM HTN history of UTI's Plan continue Vancomycin, Merrem and Doxycycline day 9 up to 10 days; urine cx showing multidrug-resistant Proteus; target - sacral ulcer cultures showing Proteus and Kathya (Kathya may be a colonizer) follow up further plans of Surgery will continue to monitor clinically overall prognosis is poor
[2018-12-14] MEDS: Vancomycin 1gm in NS 250ml 1 GM/250 ML BAG IVPB SCH ×2 (12:03→20:45)
[2018-12-14] MEDS: Multi Vitamins 15 mL UD Oral Solution PEG SCH (12:04)
[2018-12-14] MEDS: Silver Sulfadiazine 1% Cream (25 gm) TP SCH (12:05)
[2018-12-14] MEDS: Enoxaparin 40 mg Syringe SC SCH (12:05)
[2018-12-14] MEDS: Lactated Ringer's 1,000 ML IV SCH (12:05)
[2018-12-14] MEDS: Ascorbic Acid 500 mg/5 ml Liq(50 ml) PEG SCH (12:06)
[2018-12-14] MEDS: Insulin Reg-LOW-Coverage SC SCH (12:12)
--- NOTE | 2018-12-14 14:36 | PN ---
DATE: 12/14/2018 SUBJECTIVE: The patient is seen in room 266, bed two. The patient continues to be on IV antibiotic despite Infectious Disease recommended total 7 days of antibiotics. The patient is seen lying in the bed. The patient is not in any discomfort. The patient is awake, arousable to painful stimuli. OBJECTIVE: VITAL SIGNS: T-max 97.6, heart rate 77, blood pressure 125/72, respirations 20, O2 sat 98%. HEENT: Head: Normocephalic, atraumatic. HEENT examination shows pinkish pale conjunctivae, anicteric sclerae. No oropharyngeal lesion. No neck rigidity. CHEST: Kyphosis. LUNGS: Shows positive rhonchi upper lung zhang bilaterally. CARDIOVASCULAR: S1, S2, regular rhythm. Positive systolic murmur left sternal border, right second intercostal space, left second intercostal space. ABDOMEN: Soft. Positive bowel sounds, positive gastrostomy tube noted. GENITALIA: Male. Positive Vega catheter noted. EXTREMITIES: Shows positive Multi Podus boot the lower extremity. Musculoskeletal: Examination shows a body mass index of 21. NEUROLOGIC: Limited as patient has severe advanced dementia and Parkinson disease. DIAGNOSTICS: Gait examination is not tested. 12/12, WBC 7.6, hemoglobin/hematocrit 9.6, 31.4, platelet 403. Fingerstick blood sugar 129, 135, 134, 114, 165, 115. Sacral decubitus culture shows Proteus mirabilis and Kathya, light growth. The patient received 1 unit of PRBC. IMPRESSION AND PLAN: 1. Sepsis. 2. Bilateral multilobar healthcare associated versus aspiration anemia. 3. Stage IV sacral decubitus ulceration with wound vac placement. 4. Proteus mirabilis urinary tract infection. 5. Proteus mirabilis and Kathya albicans sacral decubitus ulceration. 6. Hypertension. 7. Leukocytosis with granulocytosis. 8. Normocytic anemia. 9. Insulin recurrence requiring diabetes mellitus with hyperglycemia. 10. Hyperprocalcitoninemia. 11. Microscopic hematuria, pyuria, bacteriuria. 12. Proteus mirabilis and Kathya albicans sacral decubitus ulceration. 13. Proteus one of his urinary tract infection. 14. Severe advanced dementia and severe advanced Parkinson disease. 15. Severe deconditioning and bedridden status and possible functional quadriplegia. 16. Severe gait dysfunction. 17. Neurogenic bladder with chronic indwelling Vega catheter. 18. Feeding dysfunction with gastrostomy tube placement. 19. Tachycardia. 20. Insomnia. 1. Sepsis. 2. Multilobar bilateral healthcare-associated versus aspiration pneumonia. 3. Slow resolving right lower lobe pneumonia and new left lower lobe pneumonia. 4. Hypertension. 5. Slow resolving leukocytosis with granulocytosis. 6. Anemia with decreasing hemoglobin/hematocrit. 7. Status post packed red blood cell transfusion. 8. Uax-zpaqwdk-tfcmupewv diabetes mellitus. 9. Hyperprocalcitoninemia. 10. Multidrug resistant Proteus mirabilis urinary tract infection with microscopic hematuria, pyuria, bacteriuria. 11. Gram-negative dahiana and yeast species, sacral decubitus ulceration and stage IV sacral decubitus ulceration. 12. Questionable gastrostomy tube malfunction and leak. 13. Severe advanced dementia and severe advanced Parkinson disease. 14. Severe gait dysfunction, deconditioning and bedridden status and functional quadriplegia. 15. Insomnia. 1. Sepsis. 2. Multilobar bilateral healthcare-associated aspiration pneumonia. 3. Stage IV sacral decubitus ulceration. 4. Normocytic anemia with decreasing hemoglobin/hematocrit. 5. Status post packed red blood cell transfusion x1. 6. Leukocytosis with granulocytosis. 7. Reactive thrombocytosis. 8. Insulin-requiring diabetes mellitus. 9. Feeding dysfunction with gastrostomy tube placement. 10. Neurogenic bladder with Vega catheter placement. 11. Severe gait dysfunction, bedridden status and severe deconditioning and possible functional quadriplegia. 12. Severe advanced dementia and severe advanced Parkinson disease. 1. Sepsis with multilobar bilateral healthcare-associated possible aspiration pneumonia. 2. Sacral decubitus ulceration. 3. Proteus mirabilis urinary tract infection. 4. Normocytic anemia with decreasing hemoglobin/hematocrit. 5. Status post packed red blood cell transfusion x1. 6. Advanced Parkinson disease and parkinsonism with severely advanced dementia. 7. Hypertension. 8. Feeding dysfunction with gastrostomy tube placement. 9. Voiding dysfunction with neurogenic bladder requiring Vega catheter dependent. 10. Severe gait dysfunction and bedridden status and possible functional quadriplegia. 1. Sepsis with multilobar bilateral healthcare-associated pneumonia versus questionable aspiration pneumonia. 2. Advanced Parkinson's disease and dementia with questionable behavioral disorder with episodic agitation. 3. Questionable multidrug-resistant Proteus mirabilis urinary tract infection. 4. Slow-resolving leukocytosis with granulocytosis. 5. Normocytic anemia with decreasing hemoglobin and hematocrit. 6. Insulin-requiring diabetes mellitus. 7. Severe feeding dysfunction and oropharyngeal dysphagia with placement of gastrostomy tube. 8. Neurogenic bladder with chronic indwelling Vega catheter. 9. Sacral decubitus ulceration. 10. Severe advanced Parkinson's disease and dementia. 11. Severe gait dysfunction and deconditioning and bedridden status and functional quadriplegia. 12. History of hypertension. 13. History of diabetes mellitus. 1. Sepsis with multilobar bilateral healthcare-associated pneumonia. 2. Sacral decubitus ulceration. 3. Hyperprocalcitoninemia. 4. Insulin-requiring diabetes mellitus. 5. Microscopic hematuria, pyuria, bacteriuria 6. Leukocytosis with granulocytosis. 7. Anemia with decreasing hemoglobin/hematocrit. 8. Mild hypoalbuminemia. 9. Severely advanced dementia and Parkinson disease. 10. Severe gait dysfunction and deconditioning and bedridden status with functional quadriplegia. 11. History of hypertension. 12. History of gait dysfunction. 1. High-grade fever. 2. Possible sepsis versus systemic inflammatory response syndrome. 3. Tachycardia. 4. Tachypnea. 5. Leukocytosis with granulocytosis. 6. Normocytic anemia. 7. Possible sepsis with multilobar bilateral aspiration pneumonia. 8. Lod-yckfrmh-mrpqetztf diabetes mellitus. 9. Microscopic hematuria, pyuria, bacteriuria and triple phosphate crystals. 10. Severe advanced dementia. 11. Severe advanced Parkinson's disease. 12. History of recurrent sepsis, pneumonia and urinary tract infection. 13. Sacral decubitus ulceration. 14. Feeding dysfunction with gastrostomy tube placement. 15. Speech dysfunction. 16. Multilobar bilateral possible aspiration pneumonia with a new left lower lobe pneumonia. 17. Sinus tachycardia. 18. Sepsis with pneumonia. 19. Feeding dysfunction. 20. Possible functional quadriplegia with bedridden status and severe gait dysfunction. 21. Severe advanced dementia. 22. Severe advanced Parkinson's disease. 23. History of hypertension. 24. Insulin-requiring diabetes mellitus. 25. History of tachycardia. 26. Chronic pain syndrome. 27. History of recurrent sepsis and aspiration pneumonia. 28. History of sacral decubitus ulceration, history of recurrent aspiration pneumonia. 29. History of feeding dysfunction. 30. History of dysarthria, speech dysfunction. 31. History of neurogenic bladder with urinary retention incontinence and chronic indwelling Vega catheter placement. 32. Upper and lower extremity flexion contractures. 33. History of methicillin-resistant Staphylococcus aureus nares. 34. Possible functional quadriplegia with severe deconditioning, gait dysfunction, bedridden status. 35. History of hypernatremia. 36. History of malnutrition and hypoalbuminemia. 37. Recurrent sacral decubitus ulceration, recurrent aspiration pneumonia. 38. History of prostatic hypertrophy, history of gait dysfunction. PLAN: At this time, the patient will be considered for discharge back to al[facility], as soon as the patient's IV antibiotics are discontinued by Infectious Disease. CURRENT MEDICATIONS: Mucomyst nebulizer 20% 4 mL every 6 hours, Ecotrin 81 mg daily, Catapres patch 0.1 mg every 24 hours, Vibramycin 100 mg IV every 12 hours, DuoNeb nebulizer every 2 hours p.r.n., regular insulin sliding scale coverage every 6 hours., Ringer's lactate 60 mL an hour, Lopressor 50 mg every eight hours, Lovenox 40 mg subcu daily, meropenem 1 g IV every eight hours, multivitamin 15 mL via PEG daily, nitro paste 1 inch every six hours, Protonix 40 mg IV daily, Remeron 15 mg via PEG at bedtime, Silvadene cream to the affected area, Sinemet 25-250 times a day via PEG, Tylenol p.o. suppository every six hours p.r.n., tramadol 50 mg every 12 hours p.r.n., vancomycin 1 g IV every 12 hours, vitamin C 500 mg via PEG daily, Xopenex nebulizer 0.63 mg every 6 hours, Zofran 4 mg IV every four hours p.r.n. The patient is bedridden. The patient is on gastrostomy tube feeding. The patient's overall prognosis guarded to poor. The patient's code status DNR/DNI. Dictated and electronically signed, not read. Cameron Quinteros MD MTDJd
[2018-12-15] MEDS: Nitroglycerin 2% Ointment Foilpak UD TOP SCH ×2 (00:12→05:22)
[2018-12-15] MEDS: Insulin Reg-LOW-Coverage SC SCH ×2 (00:30→10:35)
[2018-12-15 01:42] VITALS: RESP 20
[2018-12-15] MEDS: Levalbuterol 0.63 MG/3 ML Inhal Soln UD IH SCH ×3 (03:16→13:58)
[2018-12-15] MEDS: Acetylcysteine 20% Inhal Soln (4ml) IH SCH ×3 (03:16→13:57)
[2018-12-15] MEDS: Lactated Ringer's 1,000 ML IV SCH (03:36)
[2018-12-15] MEDS: Carbidopa/Levodopa 25/250 PEG SCH ×2 (05:22→10:34)
[2018-12-15] MEDS: Meropenem IV 1 gm in NS 1 GM/50 ML BAG IVPB SCH (05:22)
[2018-12-15 06:09] VITALS: O2SAT 100
--- NOTE | 2018-12-15 09:49 | DS ---
LOCATION: The patient is still in room 266, bed 2 on isolation. HISTORY OF PRESENT ILLNESS: The patient's overnight nurse's notes were reviewed. The patient stayed calm. Required restraints to avoid pulling the gastrostomy and IV access and . The patient is confused and disoriented. The patient is bedridden. PHYSICAL EXAMINATION: VITAL SIGNS: T-max 97.8, heart rate 87, blood pressure 143/67, respiration 20, O2 sat 100%. HEENT: Head: Normocephalic, atraumatic. HEENT examination shows pinkish pale conjunctivae. Anicteric sclerae, dry oral mucosa. GENERAL: The patient is arousable, responsive to painful stimuli. CARDIOVASCULAR: S1, S2, regular rhythm. Questionable soft systolic murmur left sternal border, right second intercostal space, left second intercostal space. ABDOMEN: Soft. Positive bowel sound, positive gastrostomy tube noted. Positive binder noted. Positive wound VAC noted. GENITALIA: Male. Positive Vega catheter. EXTREMITIES: Shows positive Multi Podus boot. No pitting edema noted. NEUROLOGIC: The patient is arousable to painful stimuli and loud verbal stimuli. The patient is bedridden. Gait examination is not tested. Positive sacral decubitus ulceration wound VAC noted. DIAGNOSTICS: None from today. FINAL IMPRESSION, PLAN AND DISCHARGE DIAGNOSES: 1. Sepsis. 2. Bilateral multilobar healthcare-associated versus aspiration pneumonia. 3. Proteus mirabilis urinary tract infection. 4. Proteus mirabilis and yeast. 5. Stage IV sacral decubitus ulceration. 6. Severe advanced dementia and severe advanced Parkinson disease. 7. Severe gait dysfunction, severe deconditioning and bedridden status and functional quadriplegia. 8. Hypertension. 9. There is insulin-requiring diabetes mellitus. 10. Feeding dysfunction with placement of gastrostomy tube. 11. Neurogenic bladder, Vega catheter dependent. 12. Sacral decubitus ulceration. 13. Hypertension. 14. Advanced dementia and advanced parkinsonism. 15. Hypovitaminosis D. 16. Anemia. 17. Leukocytosis with granulocytosis. 1. Sepsis. 2. Bilateral multilobar healthcare associated versus aspiration anemia. 3. Stage IV sacral decubitus ulceration with wound vac placement. 4. Proteus mirabilis urinary tract infection. 5. Proteus mirabilis and Kathya albicans sacral decubitus ulceration. 6. Hypertension. 7. Leukocytosis with granulocytosis. 8. Normocytic anemia. 9. Insulin recurrence requiring diabetes mellitus with hyperglycemia. 10. Hyperprocalcitoninemia. 11. Microscopic hematuria, pyuria, bacteriuria. 12. Proteus mirabilis and Kathya albicans sacral decubitus ulceration. 13. Proteus one of his urinary tract infection. 14. Severe advanced dementia and severe advanced Parkinson disease. 15. Severe deconditioning and bedridden status and possible functional quadriplegia. 16. Severe gait dysfunction. 17. Neurogenic bladder with chronic indwelling Vega catheter. 18. Feeding dysfunction with gastrostomy tube placement. 19. Tachycardia. 20. Insomnia. 1. Sepsis. 2. Multilobar bilateral healthcare-associated versus aspiration pneumonia. 3. Slow resolving right lower lobe pneumonia and new left lower lobe pneumonia. 4. Hypertension. 5. Slow resolving leukocytosis with granulocytosis. 6. Anemia with decreasing hemoglobin/hematocrit. 7. Status post packed red blood cell transfusion. 8. Jzh-konzeiw-taxqatsbo diabetes mellitus. 9. Hyperprocalcitoninemia. 10. Multidrug resistant Proteus mirabilis urinary tract infection with microscopic hematuria, pyuria, bacteriuria. 11. Gram-negative dahiana and yeast species, sacral decubitus ulceration and stage IV sacral decubitus ulceration. 12. Questionable gastrostomy tube malfunction and leak. 13. Severe advanced dementia and severe advanced Parkinson disease. 14. Severe gait dysfunction, deconditioning and bedridden status and functional quadriplegia. 15. Insomnia. 1. Sepsis. 2. Multilobar bilateral healthcare-associated aspiration pneumonia. 3. Stage IV sacral decubitus ulceration. 4. Normocytic anemia with decreasing hemoglobin/hematocrit. 5. Status post packed red blood cell transfusion x1. 6. Leukocytosis with granulocytosis. 7. Reactive thrombocytosis. 8. Insulin-requiring diabetes mellitus. 9. Feeding dysfunction with gastrostomy tube placement. 10. Neurogenic bladder with Vega catheter placement. 11. Severe gait dysfunction, bedridden status and severe deconditioning and possible functional quadriplegia. 12. Severe advanced dementia and severe advanced Parkinson disease. 1. Sepsis with multilobar bilateral healthcare-associated possible aspiration pneumonia. 2. Sacral decubitus ulceration. 3. Proteus mirabilis urinary tract infection. 4. Normocytic anemia with decreasing hemoglobin/hematocrit. 5. Status post packed red blood cell transfusion x1. 6. Advanced Parkinson disease and parkinsonism with severely advanced dementia. 7. Hypertension. 8. Feeding dysfunction with gastrostomy tube placement. 9. Voiding dysfunction with neurogenic bladder requiring Vega catheter dependent. 10. Severe gait dysfunction and bedridden status and possible functional quadriplegia. 1. Sepsis with multilobar bilateral healthcare-associated pneumonia versus questionable aspiration pneumonia. 2. Advanced Parkinson's disease and dementia with questionable behavioral disorder with episodic agitation. 3. Questionable multidrug-resistant Proteus mirabilis urinary tract infection. 4. Slow-resolving leukocytosis with granulocytosis. 5. Normocytic anemia with decreasing hemoglobin and hematocrit. 6. Insulin-requiring diabetes mellitus. 7. Severe feeding dysfunction and oropharyngeal dysphagia with placement of gastrostomy tube. 8. Neurogenic bladder with chronic indwelling Vega catheter. 9. Sacral decubitus ulceration. 10. Severe advanced Parkinson's disease and dementia. 11. Severe gait dysfunction and deconditioning and bedridden status and functional quadriplegia. 12. History of hypertension. 13. History of diabetes mellitus. 1. Sepsis with multilobar bilateral healthcare-associated pneumonia. 2. Sacral decubitus ulceration. 3. Hyperprocalcitoninemia. 4. Insulin-requiring diabetes mellitus. 5. Microscopic hematuria, pyuria, bacteriuria 6. Leukocytosis with granulocytosis. 7. Anemia with decreasing hemoglobin/hematocrit. 8. Mild hypoalbuminemia. 9. Severely advanced dementia and Parkinson disease. 10. Severe gait dysfunction and deconditioning and bedridden status with functional quadriplegia. 11. History of hypertension. 12. History of gait dysfunction. 1. High-grade fever. 2. Possible sepsis versus systemic inflammatory response syndrome. 3. Tachycardia. 4. Tachypnea. 5. Leukocytosis with granulocytosis. 6. Normocytic anemia. 7. Possible sepsis with multilobar bilateral aspiration pneumonia. 8. Nwr-gioumig-ajovojpyw diabetes mellitus. 9. Microscopic hematuria, pyuria, bacteriuria and triple phosphate crystals. 10. Severe advanced dementia. 11. Severe advanced Parkinson's disease. 12. History of recurrent sepsis, pneumonia and urinary tract infection. 13. Sacral decubitus ulceration. 14. Feeding dysfunction with gastrostomy tube placement. 15. Speech dysfunction. 16. Multilobar bilateral possible aspiration pneumonia with a new left lower lobe pneumonia. 17. Sinus tachycardia. 18. Sepsis with pneumonia. 19. Feeding dysfunction. 20. Possible functional quadriplegia with bedridden status and severe gait dysfunction. 21. Severe advanced dementia. 22. Severe advanced Parkinson's disease. 23. History of hypertension. 24. Insulin-requiring diabetes mellitus. 25. History of tachycardia. 26. Chronic pain syndrome. 27. History of recurrent sepsis and aspiration pneumonia. 28. History of sacral decubitus ulceration, history of recurrent aspiration pneumonia. 29. History of feeding dysfunction. 30. History of dysarthria, speech dysfunction. 31. History of neurogenic bladder with urinary retention incontinence and chronic indwelling Vega catheter placement. 32. Upper and lower extremity flexion contractures. 33. History of methicillin-resistant Staphylococcus aureus nares. 34. Possible functional quadriplegia with severe deconditioning, gait dysfunction, bedridden status. 35. History of hypernatremia. 36. History of malnutrition and hypoalbuminemia. 37. Recurrent sacral decubitus ulceration, recurrent aspiration pneumonia. 38. History of prostatic hypertrophy, history of gait dysfunction. PLAN: At this time, the patient is still on IV meropenem and IV antibiotics as per Infectious Disease. The patient's has been recommended total of 10 days of IV antibiotics as per Infectious Disease which is 10th day today. The patient will be will be considered for discharge once IV antibiotics by Infectious Disease is discontinued. The patient's will be continued on medications as per the MAR of today while the patient is in the hospital which was reviewed. The patient is to be continued on GI, DVT prophylaxis. The patient is to be continued on nebulizer treatment. The patient is to be continued on aspiration precautions with head of the bed at 30 degrees. If the patient is cleared for discharge by Infectious Disease and patient's IV antibiotics are discontinued, the patient will be considered for discharge back to [facility] under Dr. Quinteros's service. The patient's discharge medications will be as per the updated ambulatory orders, which are reviewed and updated. I have spoken to the patient's daughter, Cristal, yesterday, she was finally able to contact us in the office. The patient's daughter, Cristal, was contacted at that time of the patient's initial hospitalization on consecutive 2 or 3 days after the immediate hospitalization, but the patient's daughter voicemail was full and was unable to leave any messages, so yesterday patient's daughter finally called back. I spoke to the patient's daughter, Cristal, explained about the patient's diagnosis, test results, recommendation, all details were discussed with the patient's daughter at length. All questions concerned answered. I have re-explained the patient's daughter about the patient's overall guarded and poor prognosis and declining overall health and possible discharge back to senior care within very near future. All of the above the patient's daughter understands and acknowledges, all questions concerned answered. Time spent in the discharge process 45 minutes. Dictated and electronically signed, not read. Cameron Quinteros MD MTDJd
[2018-12-15] MEDS: Vancomycin 1gm in NS 250ml 1 GM/250 ML BAG IVPB SCH (10:33)
[2018-12-15] MEDS: Enoxaparin 40 mg Syringe SC SCH (10:33)
[2018-12-15] MEDS: Multi Vitamins 15 mL UD Oral Solution PEG SCH (10:33)
[2018-12-15] MEDS: Silver Sulfadiazine 1% Cream (25 gm) TP SCH (10:34)
[2018-12-15] MEDS: Ascorbic Acid 500 mg/5 ml Liq(50 ml) PEG SCH (10:44)
--- NOTE | 2018-12-15 12:58 | CP.PCM.PN ---
Subjective - Date & Time of Evaluation Date of Evaluation: 12/15/18 Time of Evaluation: 11:40 - Subjective Subjective: Comfortable, afebrile, non-toxic. Objective - Vital Signs/Intake and Output Vital Signs (last 24 hours): Temp Pulse Resp BP Pulse Ox 97.6 F 77 20 145/72 98 12/14/18 00:01 12/14/18 01:11 12/14/18 00:01 12/14/18 01:11 12/14/18 00:01 Intake and Output: 12/14/18 12/14/18 06:59 18:59 Intake Total 1320 Output Total 2800 Balance -1480 - Medications Medications: Current Medications Acetaminophen (Tylenol 325mg Tab) 650 mg PO Q6 PRN PRN Reason: TEMP>=99.5F Acetaminophen (Tylenol 650 Mg Supp) 650 mg RC Q6H PRN PRN Reason: TEMP>=99.5F Acetylcysteine (Acetylcysteine 20%) 4 ml IH [id number] [facility] Last Admin: 12/14/18 07:44 Dose: 4 ml Albuterol/Ipratropium (Duoneb 3 Mg/0.5 Mg (3 Ml) Ud) 3 ml IH Q2H PRN PRN Reason: Shortness of Breath Ascorbic Acid (Vitamin C Liq) 500 mg PEG DAILY [facility] Last Admin: 12/13/18 11:16 Dose: 500 mg Aspirin (Aspirin Chewable) 81 mg PEG DAILY [facility] Last Admin: 12/13/18 11:17 Dose: 81 mg Carbidopa/Levodopa (Sinemet) 1 tab PEG 5XD [facility] Last Admin: 12/14/18 05:44 Dose: 1 tab Clonidine HCl (Catapres Tts1 0.1 Mg/24 Hr) 1 patch TD Q7D@1000 [facility] Last Admin: 12/13/18 11:17 Dose: 1 patch Enoxaparin Sodium (Lovenox) 40 mg SC DAILY [facility]; Protocol Last Admin: 12/13/18 11:17 Dose: 40 mg Lactated Ringer's (Lactated Ringer's) 1,000 mls @ 60 mls/hr IV .[id number] [facility] Last Admin: 12/12/18 21:20 Dose: 60 mls/hr Meropenem (Merrem Iv 1 Gm Premix) 1 gm in 50 mls @ 100 mls/hr IVPB Q8 [facility]; Protocol Last Admin: 12/14/18 05:44 Dose: 100 mls/hr Vancomycin HCl (Vancomycin 1gm) 1 gm in 250 mls @ 167 mls/hr IVPB 0800,2000 [facility]; Protocol Last Admin: 12/13/18 20:08 Dose: 167 mls/hr Insulin Human Regular (Humulin R Low) 0 units SC Q6 [facility]; Protocol Last Admin: 12/13/18 12:35 Dose: 1 units Levalbuterol HCl (Xopenex) 0.63 mg IH [id number] [facility] Last Admin: 12/14/18 07:45 Dose: 0.63 mg Metoprolol Tartrate (Lopressor) 50 mg PEG Q8H [facility] Last Admin: 12/14/18 01:11 Dose: 50 mg Mirtazapine (Remeron) 15 mg PEG HS [facility] Last Admin: 12/13/18 21:37 Dose: 15 mg Multivitamins/Vitamin C (Multi-Delyn Liquid) 15 ml PEG 0800 [facility] Last Admin: 12/13/18 08:11 Dose: 15 ml Nitroglycerin (Nitro-Bid 2% Oint) 1 ea TOP Q6 [facility] Last Admin: 12/14/18 05:44 Dose: 1 ea Ondansetron HCl (Zofran Inj) 4 mg IVP Q4H PRN PRN Reason: Nausea/Vomiting Pantoprazole Sodium (Protonix Inj) 40 mg IV DAILY [facility] Last Admin: 12/13/18 11:17 Dose: 40 mg Silver Sulfadiazine (Silvadene 1% 25 Gm) 0 gm TP DAILY [facility] Last Admin: 12/13/18 11:18 Dose: Not Given Tramadol HCl (Ultram) 50 mg GT Q12H PRN PRN Reason: Pain, moderate (4-7) Last Admin: 12/11/18 12:15 Dose: 50 mg - Labs Labs: 12/12/18 08:00 12/12/18 08:00 - Constitutional Appears: Chronically Ill - Head Exam Head Exam: NORMAL INSPECTION - Respiratory Exam Respiratory Exam: Decreased Breath Sounds - Cardiovascular Exam Cardiovascular Exam: +S1, +S2 - GI/Abdominal Exam GI & Abdominal Exam: Soft. absent: Tenderness Assessment and Plan - Assessment and Plan (Free Text) Plan: Assessment sepsis due to infected sacral ulcer, S/P HCAP S/P sepsis due to aspiration pneumonia in this patient with fecal impaction (S/P disimpaction), less likely bowel obstruction S/P [place] gastrostomy tube placement - air under diaphragm noted on CT A/P probably related to the gastrostomy tube placement (as discussed with Dr. Ball) DM HTN history of UTI's Plan on Vancomycin, Merrem day 10 up to 10 days; urine cx showing multidrug-resistant Proteus; target - sacral ulcer cultures showing Proteus and Kathya (Kathya may be a colonizer) follow up further plans of Surgery overall prognosis is poor
[2018-12-15 13:55] VITALS: BP 143/70; PULSE 82; TEMP 98.2
== END 2018-12-15 16:48 | DRG 584 ==
LOC: ED 00:48 → ERH 02:27 → 5RNO 04:12 → 2RNO 12-08 15:27
PROVIDERS: ADMIT Internal Medicine; ATTEND Internal Medicine
PROC: 3E0F7GC Introduction of Other Therapeutic Substance into Respiratory Tract, Via Natural or Artificial Opening (ICD-10-PCS; principal; 2018-12-06)
DX: A41.9 Sepsis, unspecified organism (principal); J69.0 Pneumonitis due to inhalation of food and vomit; L89.154 Pressure ulcer of sacral region, stage 4; R53.2 Functional quadriplegia; N39.0 Urinary tract infection, site not specified; B96.4 Proteus (mirabilis) (morganii) as the cause of diseases classified elsewhere; E11.65 Type 2 diabetes mellitus with hyperglycemia; K56.41 Fecal impaction; N31.9 Neuromuscular dysfunction of bladder, unspecified; G20 Parkinson's disease; F02.80 Dementia in other diseases classified elsewhere, unspecified severity, without behavioral disturbance, psychotic disturbance, mood disturbance, and anxiety; G89.4 Chronic pain syndrome; N40.0 Benign prostatic hyperplasia without lower urinary tract symptoms; E55.9 Vitamin D deficiency, unspecified; I10 Essential (primary) hypertension; R31.29 Other microscopic hematuria; D64.9 Anemia, unspecified; G47.00 Insomnia, unspecified; K80.20 Calculus of gallbladder without cholecystitis without obstruction; Z66 Do not resuscitate; Y95 Nosocomial condition; Z74.01 Bed confinement status; Z78.1 Physical restraint status; Z79.4 Long term (current) use of insulin; Z87.440 Personal history of urinary (tract) infections

== ENCOUNTER 2019-01-06 11:47 | Emergency (ER) | payer MEDICARE, OTHER ==
[2019-01-06 11:47] VITALS: BMI 18.6
[2019-01-06 12:18] VITALS: TEMP 99.7; O2SAT 100
--- NOTE | 2019-01-06 13:47 | CP.PCM.CON ---
<Royce Ruiz - Last Filed: 01/06/19 13:31> History of Present Illness - History of Present Illness History of Present Illness: General Surgery Consult Note for Dr. Ball This 83M is familiar to the service. He presented to the Ed due to drainage around the gastrostomy tube. This happens frequently as the patient pulls on viri tube. That last time it was removed and exchanged was 1 week ago in the custodial. The patient is non verbal and per the daughter he has no other symptoms other than drainage. PMH: hypertension, dementia, Parkinson's disease, sacral decubitus ulcer stage IV, pneumonia, cholelithiasis, and diabetes mellitus type II PSH: G tube placed on 08/07/18 FMHx: brother had diabetes mellitus type II SHx: resides at [facility], moved from [place] Allergies: NKDA Review of Systems - Review of Systems Systems not reviewed;Unavailable: Dementia Past Patient History - Past Medical History & Family History Past Medical History?: Yes - Past Social History Smoking Status: Unknown If Ever Smoked - CARDIAC Hx Hypertension: Yes - PULMONARY Hx Respiratory Disorders: Yes Hx Pneumonia: Yes - NEUROLOGICAL Hx Dementia: Yes Hx Parkinson's Disease: Yes - HEENT Hx HEENT Problems: Yes Hx Difficulty Chewing: Yes Other/Comment: Dysphagia - RENAL Hx Chronic Kidney Disease: No - ENDOCRINE/METABOLIC Hx Diabetes Mellitus Type 2: Yes - HEMATOLOGICAL/ONCOLOGICAL Hx Anemia: Yes - INTEGUMENTARY Hx Dermatological Problems: Yes Other/Comment: skin breakdown sacrum with wound vac - MUSCULOSKELETAL/RHEUMATOLOGICAL Hx Musculoskeletal Disorders: Yes Hx Falls: No Hx Unsteady Gait: Yes Other/Comment: bed bound - GASTROINTESTINAL Hx Gastrointestinal Disorders: No Other/Comment: PEG tube - GENITOURINARY/GYNECOLOGICAL Hx Genitourinary Disorders: Yes Hx Incontinence: Yes Hx Prostate Problems: Yes (BPH) Other/Comment: inguinal hernia - PSYCHIATRIC Hx Psychophysiologic Disorder: No Hx Substance Use: No - SURGICAL HISTORY Hx Surgeries: No - ANESTHESIA Hx Anesthesia: Yes Hx Anesthesia Reactions: No Hx Malignant Hyperthermia: No Meds Allergies/Adverse Reactions: Allergies Allergy/AdvReac Type Severity Reaction Status Date / Time No Known Allergies Allergy Verified 01/06/19 11:58 Physical Exam - Head Exam Head Exam: ATRAUMATIC - ENT Exam ENT Exam: Mucous Membranes Moist - GI/Abdominal Exam Additional comments: G-tube in place with loose phlange and biloius drainage Results - Vital Signs Recent Vital Signs: Last Vital Signs Temp 99.7 F H 01/06/19 12:05 Pulse 77 01/06/19 12:05 Resp 19 01/06/19 12:05 BP 137/67 01/06/19 12:05 Pulse Ox 100 01/06/19 12:05 Assessment & Plan - Assessment and Plan (Free Text) Assessment: 83M with loose G-tube Gtube replaced at bedside without any issues followup PRN Discussed with Dr. Quinn Ruiz PGY3 <Jose Ball - Last Filed: 01/07/19 10:44> Results - Vital Signs Recent Vital Signs: Last Vital Signs Temp 99.7 F H 01/06/19 12:05 Pulse 85 01/07/19 04:00 Resp 18 01/07/19 04:00 BP 155/75 H 01/07/19 04:00 Pulse Ox 100 01/07/19 04:00 - Labs Labs: Laboratory Results - last 24 hr 01/06/19 19:49 POC Glucose (mg/dL) 111 H Assessment & Plan - Assessment and Plan (Free Text) Plan: Dx: PEG Malfunction Following PEG change persistent leakage noted which required my Repositioning- Securing the tube(Leakage sealed) This consultdone under my direct supervision Shey Ball MD FACS
--- NOTE | 2019-01-06 14:48 | ED PDOC ---
Arrival/HPI - General Chief Complaint: GI Problem Historian: Family, Prison, Other (PMD Dr. Quinteros) EM Caveat: Dementia - History of Present Illness Narrative History of Present Illness (Text): 01/06/19 17:40 Patient is an 83 yo male [facility] for [facility]feeding tube [facility]". Patient had had history of prior feeding tube, reportedly as per nursing reports he "pulls it", and it was noted to be dislodged and leaking. Patient sent by PMD for evaluation by DR. Ball, surgeon. As per report, there is no change from baseline mental status, no history of recent fevers or shortness of breath. Patient is poor historian. Daughter is present and states patient does pull at feeding tube occasionally. Time/Duration: Prior to Arrival Symptom Onset: Gradual Past Medical History - Cardiac Hx Hypertension: Yes - Pulmonary Hx Respiratory Disorders: Yes Hx Pneumonia: Yes - Neurological Hx Dementia: Yes Hx Parkinson's Disease: Yes - HEENT Hx HEENT Disorder: Yes Hx Difficulty Chewing: Yes Other/Comment: Dysphagia - Renal Hx Renal Disorder: No - Endocrine/Metabolic Hx Diabetes Mellitus Type 2: Yes - Hematological/Oncological Hx Anemia: Yes - Integumentary Hx Dermatological Disorder: Yes Other/Comment: skin breakdown sacrum with wound vac - Musculoskeletal/Rheumatological Hx Musculoskeletal Disorders: Yes Hx Falls: No Hx Unsteady Gait: Yes Other/Comment: bed bound - Gastrointestinal Hx Gastrointestinal Disorders: No Other/Comment: PEG tube - Genitourinary/Gynecological Hx Genitourinary Disorders: Yes Hx Incontinence: Yes Hx Prostate Problems: Yes (BPH) Other/Comment: inguinal hernia - Psychiatric Hx Psychophysiologic Disorder: No Hx Substance Use: No - Anesthesia Hx Anesthesia: Yes Hx Anesthesia Reactions: No Hx Malignant Hyperthermia: No Family/Social History Family/Social History: Unknown Family HX Smoking Status: Unknown If Ever Smoked Hx Alcohol Use: No Hx Substance Use: No Allergies/Home Meds Allergies/Adverse Reactions: Allergies No Known Allergies Allergy (Verified 01/06/19 11:58) Home Medications: Home Meds Medication Instructions Recorded Confirmed Ascorbic Acid [Vitamin C] 5 ml PEG DAILY 10/29/18 01/06/19 Insulin Human Regular-LOW [HumuLIN 0 units SC Q6H 10/29/18 01/06/19 R LOW] Pantoprazole [Protonix Inj] 40 mg PEG DAILY 10/29/18 01/06/19 traMADol [Ultram] 1 tab PEG Q12H PRN 10/29/18 01/06/19 Review of Systems - Review of Systems Systems not reviewed;Unavailable: Dementia Respiratory: absent: SOB Gastrointestinal: absent: Vomiting Neurological: absent: Focal Weakness Physical Exam Vital Signs Reviewed: Yes Vital Signs Temp Pulse Resp BP Pulse Ox 01/06/19 12:05 99.7 F H 77 19 137/67 100 Temperature: Other (99.7) Appearance: Positive for: Other (not verbal) Pain Distress: None Mental Status: Positive for: other (hx of dementia) - Systems Exam Head: Present: Atraumatic Pupils: Present: Sluggish Mouth: Present: Dry Pharnyx: No: ERYTHEMA Neck: No: Meningeal Signs Respiratory/Chest: Present: Clear to Auscultation. No: Respiratory Distress Cardiovascular: Present: Regular Rate and Rhythm, Murmurs Abdomen: Present: Feeding Tubes (no surrounding purulence or bleeding, there is dislodgement), Scars. No: Tenderness, Peritoneal Signs Rectal: No: Gross Blood Genitourinary Male: Present: Other (malik catheter) Back: Present: Decubitus Ulcer Upper Extremity: No: Cyanosis Lower Extremity: Present: Other (padding to both feet) Neurological: Present: Other (at baseline as per daughter) Psychiatric: No: Normal Insight, Normal Concentration Medical Decision Making ED Course and Treatment: 01/06/19 17:46 Patient on arrival is cardiovasclarly stable and in no respiratory distress. I communicated with PMD Dr. Quinteros who has recently evaluated patient at [facility] with labs and studies. Patient reportedly at baseline mental status with no acute changes as per family, although has history of "pulling at feeding tube." After communication with PMD, surgery Dr. Ball consulted and patient evaluated by surgical team. Serial exams continued in ED he is comfortable exhibits no distress. Plan currently is for final surgery attending evaluation and disposition. 01/06/19 19:13 Patient seen, evaluated and treated by Dr. Ball in the ER and patient is cleared for discharge back to [facility]. PMD aware. 01/06/19 21:10 Patient awaiting transport [facility] to [facility]. Tube feedings ordered. No distress noted. Disposition/Present on Arrival - Present on Arrival Any Indicators Present on Arrival: Yes History of DVT/PE: No History of Uncontrolled Diabetes: Yes Urinary Catheter: Yes History of Decub. Ulcer: No History Surgical Site Infection Following: None - Disposition Have Diagnosis and Disposition been Completed?: Yes Diagnosis: PEG tube malfunction Disposition: HOME/ ROUTINE Disposition Time: 14:00 Patient Plan: Discharge Condition: GOOD Additional Instructions: Instructions as per Dr. Ball. Follow-up with Dr. Ball and Dr. Quinteros. For any fever, any chest pain or shortness of breath, any abdominal pain, any vomiting, any diarrhea, any change in behavior, get rechecked. Referrals: Cameron Quinteros MD [Primary Care Provider] - Follow up with primary Jose Ball MD [Staff Provider] - Follow up with primary Forms: Rico (Welsh)
[2019-01-06 23:34] VITALS: RESP 18
[2019-01-07 05:52] VITALS: BP 155/75; PULSE 85
== END 2019-01-07 04:00 | disposition home or self-care (01) ==
LOC: ED 11:47
DX: K94.23 Gastrostomy malfunction (principal); E11.9 Type 2 diabetes mellitus without complications; I10 Essential (primary) hypertension; G20 Parkinson's disease; F03.90 Unspecified dementia, unspecified severity, without behavioral disturbance, psychotic disturbance, mood disturbance, and anxiety